=== PATIENT | male | born 1940 | race Caucasian/White ===

== ENCOUNTER → 2017-03-18 | Outpatient (CLI) | payer OTHER ==
[~2017-03-18] MED LIST: ACT15 PO; CZR50 PO; DOCU100C PO; FRRS300 PO; GABA-112 PO; GLIM4TAB PO; SIMV40TA2 PO; SITA50TA5 PO; SULF800T23 PO
[2017-03-18 12:56] LABS: HEMATOCRIT 35.7 % (42-52); MEAN CELL VOLUME 90.8 fL (80-100); MEAN CORPUSCULAR HEMOGLOBIN 29.3 pg (25-34); MEAN CORPUSCULAR HGB CONC 32.2 g/dl (32-36); MEAN PLATELET VOLUME 10.3 fL (7.4-10.4); PLATELET COUNT 203 K/uL (130-400); RED BLOOD COUNT 3.93 M/uL (4.7-6.1); WHITE BLOOD COUNT 7.03 K/uL (4.8-10.8)
[2017-03-18 13:19] LABS: ESTIMATED AVERAGE GLUCOSE 197 mg/dl; HA1C FLAG Normal (Normal)
== END | disposition home or self-care (01) ==
LOC: C.LABPVFM 08:21
DX: R73.01 Impaired fasting glucose (principal)

== ENCOUNTER → 2017-08-17 | Outpatient (CLI) | payer OTHER ==
[2017-08-17 12:34] LABS: HEMATOCRIT 35.8 % (42-52); HEMOGLOBIN 11.2 g/dL (14.0-18.0); MEAN CELL VOLUME 88.2 fL (80-100); MEAN CORPUSCULAR HEMOGLOBIN 27.6 pg (25-34); MEAN CORPUSCULAR HGB CONC 31.3 g/dl (32-36); MEAN PLATELET VOLUME 10.2 fL (7.4-10.4); PLATELET COUNT 242 K/uL (130-400); RED CELL DISTRIBUTION WIDTH CV 15.2 % (11.5-14.5); RED CELL DISTRIBUTION WIDTH SD 49.1 fL (36.4-46.3); WHITE BLOOD COUNT 8.67 K/uL (4.8-10.8)
[2017-08-17 12:44] LABS: HEMOGLOBIN A1C 7.5 % (4.5-5.6)
[2017-08-17 13:13] LABS: ALBUMIN 3.7 gm/dl (3.4-5.0); ALT/SGPT 34 U/L (12-78); BLOOD UREA NITROGEN 22 mg/dl (7-18); CARBON DIOXIDE 27 mmol/L (21-32); CREATININE 1.05 mg/dl (0.60-1.40); GLUCOSE 106 mg/dl (70-99); POTASSIUM 4.4 mmol/L (3.5-5.1); SODIUM 138 mmol/L (136-145)
[2017-08-17 13:16] LABS: ALKALINE PHOSPHATASE 69 U/L (45-117); AST/SGOT 23 U/L (15-37); TOTAL PROTEIN 7.6 gm/dl (6.4-8.2)
== END | disposition home or self-care (01) ==
LOC: C.LABPVFM 08:58
PROVIDERS: ATTEND Physician Assistant
DX: E11.65 Type 2 diabetes mellitus with hyperglycemia (principal)

== ENCOUNTER → 2017-12-06 | Outpatient (CLI) | payer OTHER ==
[2017-12-06 12:42] LABS: HEMATOCRIT 36.3 % (42-52); HEMOGLOBIN 11.2 g/dL (14.0-18.0); MEAN CELL VOLUME 86.4 fL (80-100); MEAN CORPUSCULAR HEMOGLOBIN 26.7 pg (25-34); MEAN CORPUSCULAR HGB CONC 30.9 g/dl (32-36); MEAN PLATELET VOLUME 10.3 fL (7.4-10.4); PLATELET COUNT 245 K/uL (130-400); RED CELL DISTRIBUTION WIDTH CV 15.8 % (11.5-14.5); RED CELL DISTRIBUTION WIDTH SD 50.1 fL (36.4-46.3); WHITE BLOOD COUNT 7.71 K/uL (4.8-10.8)
[2017-12-06 13:00] LABS: HEMOGLOBIN A1C 8.2 % (4.5-5.6)
[2017-12-06 13:03] LABS: ALBUMIN 3.4 gm/dl (3.4-5.0); ALT/SGPT 39 U/L (12-78); AST/SGOT 38 U/L (15-37); BLOOD UREA NITROGEN 15 mg/dl (7-18); CALCIUM 8.7 mg/dl (8.5-10.1); CARBON DIOXIDE 27 mmol/L (21-32); GLUCOSE 136 mg/dl (70-99); POTASSIUM 4.5 mmol/L (3.5-5.1); SODIUM 138 mmol/L (136-145)
[2017-12-06 13:05] LABS: ALKALINE PHOSPHATASE 72 U/L (45-117); CHOLESTEROL 123 mg/dl (0-200); LDL CHOLESTEROL CALCULATED 48 mg/dl; TOTAL PROTEIN 7.8 gm/dl (6.4-8.2)
== END | disposition home or self-care (01) ==
LOC: C.LABPVFM 08:21
PROVIDERS: ATTEND Physician Assistant
DX: E11.65 Type 2 diabetes mellitus with hyperglycemia (principal); E78.2 Mixed hyperlipidemia; D64.9 Anemia, unspecified; I10 Essential (primary) hypertension

== ENCOUNTER → 2018-03-18 | Outpatient (CLI) | payer OTHER ==
[~2018-03-18] MED LIST changes: +ACET-24 PO; +ASPI-461 PO; -CZR50 PO; -DOCU100C PO; +FRRG PO; -FRRS300 PO; -GABA-112 PO; +GABA-113 PO; +GLUC10007 PO; +LOSA1TAB38 PO; +METO25TA4 PO; +MULT-506 PO; +SITA1TAB21 PO; -SITA50TA5 PO; -SULF800T23 PO; +ULT50X PO; +nystatin PO
[2018-03-18 17:31] LABS: BASO % 0.5 %; BASO ABS # 0.05 K/uL (0-0.2); EOS ABS # 0.29 K/uL (0-0.5); HEMATOCRIT 38.1 % (42-52); HEMOGLOBIN 11.7 g/dL (14.0-18.0); IG# 0.02 K/uL (0.00-0.02); LYMPH % 29.4 %; LYMPH ABS # 2.83 K/uL (1.2-3.4); MEAN CELL VOLUME 90.1 fL (80-100); MEAN CORPUSCULAR HEMOGLOBIN 27.7 pg (25-34); MEAN CORPUSCULAR HGB CONC 30.7 g/dl (32-36); MEAN PLATELET VOLUME 10.7 fL (7.4-10.4); MONO % 7.5 %; MONO ABS # 0.72 K/uL (0.11-0.59); NEUT % 59.4 %; PLATELET COUNT 292 K/uL (130-400); RED CELL DISTRIBUTION WIDTH CV 14.7 % (11.5-14.5); RED CELL DISTRIBUTION WIDTH SD 48.4 fL (36.4-46.3); WHITE BLOOD COUNT 9.61 K/uL (4.8-10.8)
[2018-03-18 17:46] LABS: ALBUMIN 3.8 gm/dl (3.4-5.0); ALKALINE PHOSPHATASE 97 U/L (45-117); ALT/SGPT 31 U/L (12-78); AST/SGOT 23 U/L (15-37); BLOOD UREA NITROGEN 19 mg/dl (7-18); CARBON DIOXIDE 24 mmol/L (21-32); CHOLESTEROL 185 mg/dl (0-200); CREATININE 1.22 mg/dl (0.60-1.40); GLUCOSE 98 mg/dl (70-99); LDL CHOLESTEROL CALCULATED 105 mg/dl; POTASSIUM 4.7 mmol/L (3.5-5.1); SODIUM 139 mmol/L (136-145); TOTAL PROTEIN 8.2 gm/dl (6.4-8.2); TRANSFERRIN 314 mg/dl (200-360)
[2018-03-19 06:48] LABS: HEMOGLOBIN A1C 8.4 % (4.5-5.6)
== END | disposition home or self-care (01) ==
LOC: C.LABPVFM 14:33
PROVIDERS: ATTEND Family Medicine
DX: T78.2XXA Anaphylactic shock, unspecified, initial encounter (principal); X58.XXXA Exposure to other specified factors, initial encounter; E11.9 Type 2 diabetes mellitus without complications; I10 Essential (primary) hypertension

== ENCOUNTER 2020-06-24 10:29 | Inpatient (IN) ==
[2020-06-24] MEDS ORDERED: ALBUTEROL 0.083% NEBU SOLN 3 ML VIAL NEB STA (10:51)
[2020-06-24] MEDS ORDERED: DEXAMETHASONE SOD INJ 10 MG/ML VIAL IV ONE (10:51)
--- NOTE | 2020-06-24 10:53 | Emergency Department Note ---
Impression & Plan Hypoxia, Pneumonia, COVID-19 ED Provider Note NAME: MACIEL LEE AGE: 80 SEX: M : 1940 ARRIVES VIA: Ambulance INFORMANT: Patient ED PROVIDER(S): Jono Mcneil DO CHIEF COMPLAINT: Shortness of breath HPI: Patient is a 80-year-old male with a past medical history of COPD and diabetes who presents to the ER for shortness of breath. Symptoms started in the past 24 hours. He does have a cough and congestion. He tested positive for frazier virus around the to 11 June. His has the same symptoms. He has been using his inhalers at home but have not been working. He denies any fevers. He does admit to belly pain in the left lower quadrant. Denies any dysuria urgency or frequency. No swelling. No nausea vomiting. No other exacerbating or remitting factors. ROS: See above HPI for pertinent positives & negatives. A total of 10 systems reviewed and were otherwise negative. PAST MEDICAL HISTORY:See Below PAST SURGICAL HISTORY:See Below FAMILY HISTORY:See Below SOCIAL HISTORY:See Below HOME MEDICATIONS:See Below ALLERGIES:See Below VITALS:See Below PHYSICAL EXAMINATION: GENERAL: Sitting up in bed, alert, ill-appearing, short of breath with conversation EYE EXAM: normal conjunctiva. OROPHARYNX: no exudate, no erythema, lips, buccal mucosa, and tongue normal and mucous membranes are moist NECK: supple, no nuchal rigidity, no adenopathy, non-tender LUNGS: Wheezing bilaterally. Normal chest wall mechanics HEART: no murmurs, S1 normal and S2 normal ABDOMEN: abdomen soft, non-tender, normo-active bowel sounds, no masses, no rebound or guarding. UPPER EXTREMITIES: upper extremities are grossly normal. LOWER EXTREMITIES: No pitting edema. Calves are equal bilateral NEURO EXAM: Normal sensorium, cranial nerves II-XII grossly intact, normal speech, no gross weakness of arms, no gross weakness of legs. MEDICAL DECISION MAKING: Patient is a 80-year-old male who presents the ER for shortness of breath. Upon presentation he was extremely dyspneic with conversation breathing about 35 time s a minute. Pulse ox was in the mid 80s. He was placed on oxygen and eventually placed on BiPAP. He improved significantly. He was given an hour- long neb treatment. Labs show a mild leukocytosis of 11,000. Not anemia at 9 down from baseline of 11. INR 1.3. Dimer was elevated at 6100. BMP with creatinine 1.4. LFTs bilirubin was unremarkable. Troponin was negative. Lipase unremarkable. Patient was Covid positive. Patient continued on BiPAP. Was given azithromycin, Rocephin and IV Decadron. Was given IV fluids. Chest x-ray with multifocal pneumonia. Updated and discussed with hospitalist for further evaluation. Triage Nursing notes reviewed. Prior medical records reviewed Vital Signs: reviewed and remarkable for tachycardic, dyspneic, hypoxic Differential diagnosis: Differential diagnoses includes but is not limited to pneumonia, bronchitis, COPD/Asthma exacerbation, pneumothorax, pulmonary embolism, congestive heart f ailure, acute coronary syndrome ER treatment provided: See below Diagnostics interpreted by me: ECG: Sinus tachycardia rate of 105 Left axis No PVCs QTC 459 Cardiac Monitoring: An order was placed for continuous cardiac monitoring. The monitor shows a rate of 89 with sinus rhythm. Laboratory studies: As stated above and show below. Imaging studies: Portable AP upright 1 view shows multifocal pneumonia Consultation(s): Discussed the hospitalist for further evaluation ED COURSE: Procedures: none Critical Care: I have personally spent 35 minutes of critical care time in the direct management of this patient. This includes bedside care, interpretation of diagnostic studies, and testing, discussion with consultants, patient, and [facility], and other required patient management activities. This 35 minutes is in excess of all separately billable procedures. Past Med/Surg History Medical History (Updated 06/24/20 @ 16:08 by Jono Mcneil DO) Acquired trigger finger of both ring fingers Carpal tunnel syndrome Cerumen impaction Chronic obstructive pulmonary disease WELL CONTROLLED> RARE INH USE CKD stage 3 secondary to diabetes DOESNT FOLLOW KIDNEY DR Diabetes type 2, controlled Exertional dyspnea Osteoarthritis Paroxysmal atrial fibrillation NO CARDIOVERSION> CONTROLLED WITH MEDS Seborrheic keratoses Sleep apnea ON ABOVE LIST BUT PT DOES NOT HAVE Surgical History (Updated 06/24/20 @ 15:28 by Guru Holland) H/O foot surgery congenital deformity History of appendectomy History of cataract surgery both eyes History of colonoscopy History of esophagogastroduodenoscopy (EGD) History of hip replacement History of mandibular surgery REMOVED BENIGN TUMOR YRS AGO History of total knee replacement LEFT History of wisdom tooth extraction Previous back surgery X2 LUMBAR> Family History Father Cancer brain and lung Other Family history non-contributory Denies family history of Ovarian cancer Prostate cancer Myocardial infarction Breast cancer Colorectal cancer Social History Smoking Status: Former smoker Tobacco Type: Cigarettes packs per day: 4; Smoking End Date: 1989; Number of Years Since Quit: 30; Second Hand Exposure: No; Hx Alcohol Use: No Hx Substance Use: No Preferred Language: Kazakh Communication Ability: Effective Airfield Operations Specialist Required: No Beliefs That Will Affect Care: None marital status: Current Living Situation: Spouse current occupational status: retired 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 Feels Safe at Home: Yes caffeine: Yes (welsh tea) Dental Care, Regularly: No Seatbelt Use: sometimes Sunscreen Use: No Assistive Devices: Denture - Upper, Denture - Lower and Glasses Allergies Allergies Allergy/AdvReac Type Severity Reaction Status Date / Time cheese Allergy Severe Hives Verified 06/10/20 17:06 Home Meds Home Medications Medication Instructions Recorded Confirmed epinephrine 0.3 mg/0.3 mL 0.3 mg SUBCUT .INJECT 0.3ML 12/25/18 06/10/20 injection, auto-injector INTRAMU #1 ea ferrous gluconate 324 mg (38 mg 324 mg PO Q OTHER DAY tab 06/30/19 06/10/20 iron) tablet insulin aspart U-100 [Novolog 25 unit SUBCUT TID 01/03/20 06/10/20 Flexpen U-100 Insulin] cholecalciferol (vitamin D3) 25 1,000 units PO DAILY cap 02/16/20 06/10/20 mcg (1,000 unit) capsule Previous Rx's Medication Instructions Recorded lancets 33 gauge #100 ea 12/29/18 pen needle, diabetic 32 gauge x #200 ea 03/15/19" OneTouch Ultra2 Meter #1 ea NS 09/15/19 apixaban 5 mg tablet 5 mg PO BID #60 tab 01/17/20 simvastatin 40 mg tablet See Rx Instructions .ROUTE 02/06/20 .COMPLEX #90 tablet insulin glargine 100 unit/mL (3 See Rx Instructions SQ QAM 90 Days 03/12/20 mL) subcutaneous pen #45 ml metoprolol succinate 50 mg 50 mg PO BID #180 tab 04/12/20 tablet,extended release 24 hr blood sugar diagnostic #400 ea 04/17/20 losartan 100 mg tablet 100 mg PO QAM #30 tab 05/07/20 metformin 1,000 mg tablet 1,000 mg PO BID #60 tab 05/07/20 gabapentin 100 mg capsule See Rx Instructions .ROUTE 06/14/20 .COMPLEX #30 cap budesonide-formoterol HFA 160 2 puff INH BID #10.2 gm 06/17/20 mcg-4.5 mcg/actuation aerosol inhaler ipratropium 0.5 mg-albuterol 3 mg 3 ml INHALATION Q4H PRN #540 ml 06/17/20 (2.5 mg base)/3 mL nebulization soln albuterol sulfate 90 mcg/actuation 2 puff INHALATION Q4H PRN #8.5 g 06/18/20 aerosol inhaler nebulizers #1 ea 06/18/20 Results & Data (ED) Vital Signs Vital Signs - 24 hr 06/24/20 10:35 06/24/20 10:40 06/24/20 10:42 Temperature 37.7 C H Temperature Source Oral Pulse Rate 103 H 107 H 102 H Pulse Rate from SpO2 Sensor 102 H 101 H Respiratory Rate 32 H 30 H 28 H Respiratory Effort / Characteristics Respiratory Depth Respiratory Pattern Blood Pressure 157/93 H 157/93 H Blood Pressure Mean 107 114 Pulse Oximetry 95 97 96 Oxygen Delivery Method Nasal Cannula BiPAP Oxygen Flow Rate 4 Fraction of Inspired Oxygen Sepsis Recent Fever Within 48 Hours Yes Sepsis New/Unexplained Change in Mental Status Yes Sepsis Action Taken by Nursing Physician Notified 06/24/20 10:50 06/24/20 11:00 06/24/20 11:01 Temperature Temperature Source Pulse Rate 99 H 100 H 100 H Pulse Rate from SpO2 Sensor 99 H 94 H 100 H Respiratory Rate 23 28 H 29 H Respiratory Effort / Characteristics Respiratory Depth Respiratory Pattern Blood Pressure 157/78 H Blood Pressure Mean 118 Pulse Oximetry 95 95 96 Oxygen Delivery Method BiPAP BiPAP BiPAP Oxygen Flow Rate Fraction of Inspired Oxygen Sepsis Recent Fever Within 48 Hours Sepsis New/Unexplained Change in Mental Status Sepsis Action Taken by Nursing 06/24/20 11:10 06/24/20 11:12 06/24/20 11:20 Temperature Temperature Source Pulse Rate 102 H 104 H 100 H Pulse Rate from SpO2 Sensor 102 H 98 H Respiratory Rate 34 H 23 23 Respiratory Effort / Characteristics Spontaneous Respiratory Depth Normal Respiratory Pattern Regular Blood Pressure Blood Pressure Mean Pulse Oximetry 96 93 96 Oxygen Delivery Method BiPAP Oxygen Flow Rate Fraction of Inspired Oxygen 30 Sepsis Recent Fever Within 48 Hours Sepsis New/Unexplained Change in Mental Status Sepsis Action Taken by Nursing 06/24/20 11:24 06/24/20 11:30 06/24/20 11:31 Temperature Temperature Source Pulse Rate 106 H 102 H Pulse Rate from SpO2 Sensor Respiratory Rate 32 H 29 H Respiratory Effort / Characteristics Respiratory Depth Respiratory Pattern Blood Pressure 137/77 Blood Pressure Mean 95 Pulse Oximetry 95 Oxygen Delivery Method Nasal Cannula Oxygen Flow Rate 4 Fraction of Inspired Oxygen Sepsis Recent Fever Within 48 Hours Sepsis New/Unexplained Change in Mental Status Sepsis Action Taken by Nursing 06/24/20 11:40 06/24/20 11:50 06/24/20 12:09 Temperature Temperature Source Pulse Rate 101 H 100 H 119 H Pulse Rate from SpO2 Sensor 100 H 97 H Respiratory Rate 26 H 22 30 H Respiratory Effort / Characteristics Respiratory Depth Respiratory Pattern Blood Pressure Blood Pressure Mean Pulse Oximetry 96 97 Oxygen Delivery Method BiPAP BiPAP Oxygen Flow Rate Fraction of Inspired Oxygen Sepsis Recent Fever Within 48 Hours Sepsis New/Unexplained Change in Mental Status Sepsis Action Taken by Nursing 06/24/20 12:10 06/24/20 12:17 06/24/20 12:20 Temperature Temperature Source Pulse Rate 126 H 111 H 100 H Pulse Rate from SpO2 Sensor 86 100 H Respiratory Rate 26 H 22 23 Respiratory Effort / Characteristics Respiratory Depth Respiratory Pattern Blood Pressure 167/62 H Blood Pressure Mean 128 Pulse Oximetry 93 95 Oxygen Delivery Method BiPAP BiPAP Oxygen Flow Rate Fraction of Inspired Oxygen Sepsis Recent Fever Within 48 Hours Sepsis New/Unexplained Change in Mental Status Sepsis Action Taken by Nursing 06/24/20 12:30 06/24/20 12:40 06/24/20 12:50 Temperature Temperature Source Pulse Rate 98 H 96 H 93 H Pulse Rate from SpO2 Sensor 96 H 95 H 91 H Respiratory Rate 23 22 20 Respiratory Effort / Characteristics Respiratory Depth Respiratory Pattern Blood Pressure 148/71 H Blood Pressure Mean 103 Pulse Oximetry 94 95 94 Oxygen Delivery Method BiPAP BiPAP BiPAP Oxygen Flow Rate Fraction of Inspired Oxygen Sepsis Recent Fever Within 48 Hours Sepsis New/Unexplained Change in Mental Status Sepsis Action Taken by Nursing 06/24/20 13:00 06/24/20 13:10 06/24/20 13:20 Temperature Temperature Source Pulse Rate 92 H 101 H 99 H Pulse Rate from SpO2 Sensor 91 H 101 H 89 Respiratory Rate 21 19 20 Respiratory Effort / Characteristics Respiratory Depth Respiratory Pattern Blood Pressure 134/75 Blood Pressure Mean 112 Pulse Oximetry 95 93 92 Oxygen Delivery Method Oxygen Flow Rate Fraction of Inspired Oxygen Sepsis Recent Fever Within 48 Hours Sepsis New/Unexplained Change in Mental Status Sepsis Action Taken by Nursing 06/24/20 13:30 06/24/20 13:38 06/24/20 13:40 Temperature Temperature Source Pulse Rate 115 H 103 H 99 H Pulse Rate from SpO2 Sensor 99 H 97 H Respiratory Rate 20 27 H 23 Respiratory Effort / Characteristics Respiratory Depth Respiratory Pattern Blood Pressure 153/74 H Blood Pressure Mean 102 Pulse Oximetry 89 L 89 L Oxygen Delivery Method Room Air Room Air Oxygen Flow Rate Fraction of Inspired Oxygen Sepsis Recent Fever Within 48 Hours Sepsis New/Unexplained Change in Mental Status Sepsis Action Taken by Nursing 06/24/20 13:45 06/24/20 13:50 06/24/20 14:00 Temperature Temperature Source Pulse Rate 98 H 100 H 93 H Pulse Rate from SpO2 Sensor 100 H 91 H Respiratory Rate 28 H 26 H 24 Respiratory Effort / Characteristics Spontaneous Respiratory Depth Normal Respiratory Pattern Regular Blood Pressure 150/78 H Blood Pressure Mean 106 Pulse Oximetry 88 L 97 94 Oxygen Delivery Method BiPAP BiPAP Oxygen Flow Rate Fraction of Inspired Oxygen 30 Sepsis Recent Fever Within 48 Hours Sepsis New/Unexplained Change in Mental Status Sepsis Action Taken by Nursing 06/24/20 14:01 06/24/20 14:10 06/24/20 14:20 Temperature Temperature Source Pulse Rate 93 H 94 H 91 H Pulse Rate from SpO2 Sensor 93 H 94 H 91 H Respiratory Rate 22 20 20 Respiratory Effort / Characteristics Respiratory Depth Respiratory Pattern Blood Pressure Blood Pressure Mean Pulse Oximetry 94 96 94 Oxygen Delivery Method BiPAP BiPAP BiPAP Oxygen Flow Rate Fraction of Inspired Oxygen Sepsis Recent Fever Within 48 Hours Sepsis New/Unexplained Change in Mental Status Sepsis Action Taken by Nursing 06/24/20 14:30 Temperature Temperature Source Pulse Rate 89 Pulse Rate from SpO2 Sensor 80 Respiratory Rate 18 Respiratory Effort / Characteristics Respiratory Depth Respiratory Pattern Blood Pressure Blood Pressure Mean Pulse Oximetry 98 Oxygen Delivery Method BiPAP Oxygen Flow Rate Fraction of Inspired Oxygen Sepsis Recent Fever Within 48 Hours Sepsis New/Unexplained Change in Mental Status Sepsis Action Taken by Nursing Laboratory Data Result diagrams: 06/24/20 10:50 06/24/20 10:50 Lab Results 06/24/20 06/24/20 06/24/20 Range/Units 10:50 10:50 10:50 WBC 11.79 H (4.8-10.8) K/uL RBC 3.40 L (4.7-6.1) M/uL Hgb 9.2 L (14.0-18.0) g/dL Hct 29.2 L (42-52) % MCV 85.9 (80-100) fL MCH 27.1 (25-34) pg MCHC 31.5 L (32-36) g/dL RDW Std Deviation 49.5 H (36.4-46.3) fL RDW Coeff of Pierce 15.7 H (11.5-14.5) % Plt Count 354 (130-400) K/uL MPV 11.3 H (7.4-10.4) fL Immature Gran % (Auto) 0.3 % Neut % (Auto) 77.4 % Lymph % (Auto) 10.4 % Kenton % (Auto) 11.2 % Eos % (Auto) 0.4 % Baso % (Auto) 0.3 % Neut # (Auto) 9.13 H (1.4-6.5) K/uL Lymph # (Auto) 1.23 (1.2-3.4) K/uL Kenton # (Auto) 1.32 H (0.11-0.59) K/uL Eos # (Auto) 0.05 (0-0.5) K/uL Baso # (Auto) 0.03 (0-0.2) K/uL Immature Gran # (Auto) 0.03 H (0.00-0.02) K/uL Absolute Nucleated RBC 0.16 H (0-0) K/uL Nucleated RBC % (auto) 1.4 % PT 13.7 H (9.0-12.0) Seconds INR 1.3 H (0.9-1.1) APTT 31.1 H (21.0-31.0) Seconds PTT Ratio 1.1 D-Dimer 6140 H* (0-500) ug/L FEU Sodium 136 (136-145) mmol/L Potassium 4.6 (3.5-5.1) mmol/L Chloride 104 (98-107) mmol/L Carbon Dioxide 24 (21-32) mmol/L Anion Gap 8.0 (3-11) BUN 23 H (7-18) mg/dl Creatinine 1.45 H (0.6-1.4) mg/dl Est Cr Clr Drug Dosing 54.1 ml/min Est GFR ( Amer) 53.1 Est GFR (Non-Af Amer) 45.8 BUN/Creatinine Ratio 15.9 (10-20) Glucose 146 H (70-99) mg/dl Calcium 9.0 (8.5-10.1) mg/dl Total Bilirubin 0.6 (0.2-1) mg/dl AST 53 H (15-37) U/L ALT 34 (12-78) U/L Alkaline Phosphatase 96 (45-117) U/L Troponin I < 0.015 (0-0.045) ng/ml Total Protein 8.1 (6.4-8.2) gm/dl Albumin 2.4 L (3.4-5.0) gm/dl Globulin 5.7 H (2.5-4.0) gm/dl Albumin/Globulin Ratio 0.4 L (0.9-2) Lipase 186 (73-393) U/L COVID-19 Eval Order SARS-CoV-2, RNA, NAAT (NEGATIVE) 06/24/20 06/24/20 Range/Units 11:19 11:19 WBC (4.8-10.8) K/uL RBC (4.7-6.1) M/uL Hgb (14.0-18.0) g/dL Hct (42-52) % MCV (80-100) fL MCH (25-34) pg MCHC (32-36) g/dL RDW Std Deviation (36.4-46.3) fL RDW Coeff of Pierce (11.5-14.5) % Plt Count (130-400) K/uL MPV (7.4-10.4) fL Immature Gran % (Auto) % Neut % (Auto) % Lymph % (Auto) % Kenton % (Auto) % Eos % (Auto) % Baso % (Auto) % Neut # (Auto) (1.4-6.5) K/uL Lymph # (Auto) (1.2-3.4) K/uL Kenton # (Auto) (0.11-0.59) K/uL Eos # (Auto) (0-0.5) K/uL Baso # (Auto) (0-0.2) K/uL Immature Gran # (Auto) (0.00-0.02) K/uL Absolute Nucleated RBC (0-0) K/uL Nucleated RBC % (auto) % PT (9.0-12.0) Seconds INR (0.9-1.1) APTT (21.0-31.0) Seconds PTT Ratio D-Dimer (0-500) ug/L FEU Sodium (136-145) mmol/L Potassium (3.5-5.1) mmol/L Chloride (98-107) mmol/L Carbon Dioxide (21-32) mmol/L Anion Gap (3-11) BUN (7-18) mg/dl Creatinine (0.6-1.4) mg/dl Est Cr Clr Drug Dosing ml/min Est GFR ( Amer) Est GFR (Non-Af Amer) BUN/Creatinine Ratio (10-20) Glucose (70-99) mg/dl Calcium (8.5-10.1) mg/dl Total Bilirubin (0.2-1) mg/dl AST (15-37) U/L ALT (12-78) U/L Alkaline Phosphatase (45-117) U/L Troponin I (0-0.045) ng/ml Total Protein (6.4-8.2) gm/dl Albumin (3.4-5.0) gm/dl Globulin (2.5-4.0) gm/dl Albumin/Globulin Ratio (0.9-2) Lipase (73-393) U/L COVID-19 Eval Order Covid19 [facility] SARS-CoV-2, RNA, NAAT POSITIVE A* (NEGATIVE) Administered Medications Discontinued Medications Albuterol (Albuterol 0.083% Nebu Soln 3 Ml Vial) 10 mg NEB NOW STA Stop: 06/24/20 10:52 Last Admin: 06/24/20 11:17 Dose: 10 mg Documented by: [id number] Dexamethasone (Dexamethasone Sod Inj 10 Mg/Ml Vial) 6 mg IV NOW ONE Stop: 06/24/20 10:52 Last Admin: 06/24/20 11:18 Dose: 6 mg Documented by: [id number] Ioversol (Optiray 320 125ml) 120 ml IV ONCE ONE Stop: 06/24/20 11:57 Last Admin: 06/24/20 11:57 Dose: 120 ml Documented by: [id number] Discharge Plan Visit Data Chief Complaint: Shortness of Breath/Dyspnea ED Provider: Jono Mcneil Discharge Problem: Hypoxia, Pneumonia, COVID-19 Forms Stand Alone Forms: [facility] [place] Prescriptions Prescriptions: No Action (DME) blood-glucose meter [[employer] Ultra2 Meter] Mis See Rx Instructions .ROUTE .MEDSUPPLY Qty: 1 RF: 0 Eliquis 5 mg tablet 5 mg PO BID Qty: 60 RF: 5 metoprolol succinate 50 mg tablet extended release 24 hr 50 mg PO BID Qty: 180 RF: 0 (DME) Deep Imaging TechnologiesTouch Ultra Blue Test Strip Strip See Dose Instructions .ROUTE .MEDSUPPLY Qty: 400 RF: 1 losartan 100 mg tablet 100 mg PO QAM Qty: 30 RF: 4 metformin 1,000 mg tablet 1,000 mg PO BID Qty: 60 RF: 5 cholecalciferol (vitamin D3) 25 mcg (1,000 unit) capsule 1,000 units PO DAILY RF: 0 epinephrine 0.3 mg/0.3 mL auto-injector 0.3 mg subcut .INJECT 0.3ML INTRAMU Qty: 1 RF: 0 (DME) lancets [[employer] Delica Lancets] [facility] See Dose Instructions .ROUTE .MEDSUPPLY Qty: 100 RF: 3 ferrous gluconate 324 mg (38 mg iron) tablet 324 mg PO Q OTHER DAY RF: 0 (DME) pen needle, diabetic [BD Ultra-Fine Lavinia Pen Needle] 32 gauge x 5/32" needle See Dose Instructions .ROUTE .MEDSUPPLY Qty: 200 RF: 5 Symbicort 160-4.5 mcg/actuation HFA aerosol inhaler 2 puff INH BID Qty: 10.2 RF: 0 ipratropium-albuterol 0.5 mg-3 mg(2.5 mg base)/3 mL solution for nebulization 3 ml inhalation Q4H PRN (Reason: COPD) Qty: 540 RF: 5 (DME) nebulizers [facility] See Rx Instructions .ROUTE .MEDSUPPLY Qty: 1 RF: 0 albuterol sulfate 90 mcg/actuation HFA aerosol inhaler 2 puff inhalation Q4H PRN (Reason: shortness of breath or wheezing) Qty: 8.5 RF: 5 insulin aspart U-100 [Novolog Flexpen U-100 Insulin] 100 unit/mL (3 mL) insulin pen 25 unit SUBCUT TID RF: 0 travoprost 0.004 % drops 1 drp OPL HS RF: 0 simvastatin 40 mg tablet 40 mg PO HS RF: 0 gabapentin 100 mg capsule 100 mg PO BID RF: 0 Basaglar KwikPen U-100 Insulin 100 unit/mL (3 mL) insulin pen 40 unit SQ QAM RF: 0 Discharge Problem: Pneumonia Qualifiers: Pneumonia type: due to unspecified organism Laterality: unspecified laterality Lung location: unspecified part of lung Qualified Code(s): J18.9 - Pneumonia, unspecified organism
[2020-06-24 11:04] LABS: Basophils # (auto) 0.03 K/uL (0-0.2); Basophils % (auto) 0.3 %; Eosinophils # (auto) 0.05 K/uL (0-0.5); Eosinophils % (auto) 0.4 %; Hematocrit (blood only) 29.2 % (42-52); Hemoglobin 9.2 g/dL (14.0-18.0); Immature Granulocytes # (auto) 0.03 K/uL (0.00-0.02); Immature Granulocytes % (auto) 0.3 %; Lymphocytes # (auto) 1.23 K/uL (1.2-3.4); Lymphocytes % (auto) 10.4 %; Mean Corpuscular Hemoglobin 27.1 pg (25-34); Mean Corpuscular Hgb Conc 31.5 g/dL (32-36); Mean Corpuscular Volume 85.9 fL (80-100); Mean Platelet Volume 11.3 fL (7.4-10.4); Monocytes # (auto) 1.32 K/uL (0.11-0.59); Monocytes % (auto) 11.2 %; Neutrophils # (auto) 9.13 K/uL (1.4-6.5); Neutrophils % (auto) 77.4 %; Nucleated RBC # (auto) 0.16 K/uL (0-0); Nucleated RBC % (auto) 1.4 %; Platelet Count 354 K/uL (130-400); RDW Coefficient of Variation 15.7 % (11.5-14.5); RDW Standard Deviation 49.5 fL (36.4-46.3); White Blood Count 11.79 K/uL (4.8-10.8)
--- NOTE | 2020-06-24 11:11 | XRay Report ---
SINGLE VIEW CHEST CLINICAL HISTORY: Atypical chest pain. FINDINGS: An AP, portable, upright chest radiograph is compared to study dated 07/17/2018 and correla cody with chest CT dated 10/07/2018. The examination is degraded by portable technique and apical lordo tic positioning. The heart is enlarged noting atherosclerotic calcification of the thoracic aorta. Th ere is prominence of the pulmonary vasculature. There is multifocal airspace consolidation seen throu ghout both lungs. No large pleural effusion or pneumothorax is seen. The skeletal structures are oste openic. The bony thorax is grossly intact. IMPRESSION: 1. Multifocal airspace consolidation is consistent with an infectious/inflammatory pneumonitis. Clini sanford correlation will be required and radiographic follow-up to resolution is recommended. 2. Cardiomegaly with prominence of the pulmonary vasculature. Correlate clinically for mild congestiv e failure. ACT 112: Negative or not required by law. Electronically signed by: Kaushal Mercado M.D. 06/24/2020 11:10 AM
[2020-06-24 11:22] LABS: Alanine Aminotransferase 34 U/L (12-78); Albumin Level 2.4 gm/dl (3.4-5.0); Aspartate Aminotransferase 53 U/L (15-37); BUN Creatinine Ratio 15.9 (10-20); Blood Urea Nitrogen 23 mg/dl (7-18); Carbon Dioxide 24 mmol/L (21-32); Chloride 104 mmol/L (98-107); Creatinine Clr Calc Pharmacy 54.1 ml/min; Est GFR (African American) 53.1; Est GFR (Non-African American) 45.8; Glucose 146 mg/dl (70-99); INR 1.3 (0.9-1.1); Lipase 186 U/L (73-393); Partial Thromboplastin Ratio 1.1; Partial Thromboplastin Time 31.1 Seconds (21.0-31.0); Potassium 4.6 mmol/L (3.5-5.1); Prothrombin Time 13.7 Seconds (9.0-12.0); Sodium 136 mmol/L (136-145)
[2020-06-24 11:23] LABS: D Dimer 6140 ug/L FEU (0-500)
[2020-06-24 11:27] LABS: Albumin Globulin Ratio 0.4 (0.9-2); Alkaline Phosphatase 96 U/L (45-117); Bilirubin,Total 0.6 mg/dl (0.2-1); Globulin 5.7 gm/dl (2.5-4.0); Total Protein 8.1 gm/dl (6.4-8.2); Troponin I < 0.015 ng/ml (0-0.045)
[2020-06-24] MEDS ORDERED: OPTIRAY 320 125ml IV ONE (11:56)
--- NOTE | 2020-06-24 12:15 | CT Scan Report ---
CT ANGIOGRAM OF THE CHEST CLINICAL HISTORY: Hypoxia, positive d-dimer. Covid 19 positive patient. COMPARISON STUDY: Chest x-ray dated 06/24/2020, chest CT dated 10/07/2018 TECHNIQUE: Following the IV administration of 120 mL of Optiray-320, CT angiogram of the thorax was p erformed from the thoracic inlet to the lung bases utilizing the pulmonary embolus protocol. Images a re reviewed in the axial, sagittal, and coronal planes. IV contrast was administered without complica tion. MIP imaging was performed. A dose lowering technique was utilized adhering to the principles o f ALARA. CT DOSE: 1694.61 mGycm FINDINGS: Mediastinal and hilar lymph nodes are the upper limits of normal in size. There is no pathologic axil mary lymphadenopathy. There was no evidence of thoracic aortic dilatation. There are no pulmonary artery filling defects to indicate acute pulmonary embolism. Evaluation is mod erately limited due to significant motion artifact. There are no pleural effusions. There are multifocal groundglass pulmonary opacities with a periphera l distribution. The findings are consistent with a multifocal pneumonitis. While nonspecific, the fin dings are suggestive of Covid 19 pneumonia. There is a nodular contour of the visualized portions of the liver. This raises the possibility of un derlying cirrhosis IMPRESSION: 1. No evidence of acute pulmonary embolism given the technical limitations of a motion degraded study 2. Bilateral multifocal groundglass airspace opacities, consistent with a multifocal pneumonia. While nonspecific, the pattern is typical of Covid 19 pneumonia ACT 112: Negative or not required by law. Electronically signed by: Dante Murillo M.D. 06/24/2020 12:13 PM
--- NOTE | 2020-06-24 12:24 | CT Scan Report ---
ABDOMEN AND PELVIS CT WITH IV CONTRAST HISTORY: Acute left lower quadrant abdominal pain. COVID Positive. llq abd pain TECHNIQUE: Multiaxial CT images of the abdomen and pelvis were performed following the IV administrat ion of 120 cc of Optiray 320, A dose lowering technique was utilized adhering to the principles of A WICHO. COMPARISON STUDY: CTA chest of same day, MRI of her spine 02/08/2020. FINDINGS: Mild cardiomegaly. Coronary artery calcifications. Multifocal subpleural groundglass opacit ies are noted throughout the lung bases. No pneumatosis or pneumoperitoneum. Heterogeneous enhancemen t of the spleen. Fatty attenuating focus measuring 3.4 x 2.2 cm is noted within the region of the unc inate process pancreas/second third portion the duodenum junction suggestive of a lipoma. No pancreat ic ductal dilation. Unremarkable adrenal glands and gallbladder. Mild marginal nodularity of the live r suggestive of cirrhosis. No ascites or hepatic mass lesion. Patency of the hepatic and portal veins . Mild nonspecific bilateral perinephric stranding. No obstructive uropathy. Pelvic structures are subo ptimally visualized secondary to streak artifact from left hip total joint arthroplasty. Mild prostam egaly. Unremarkable urinary bladder. Small fat filled left inguinal hernia. Calcified plaque of the a cristina without aneurysm. There is no adenopathy. Distal esophageal varices. Mild distal esophageal wall thickening. Recanalization of the umbilical ve in. The appendix is reportedly surgically absent. No ascites or mesenteric inflammation. Soft tissues are within normal limits. Degenerative changes of the spine, pelvis and hips. Multilevel central can al narrowing of the lumbar spine with prior laminectomy changes. 1.9 cm sclerotic focus of the right iliac bone on image 302 series 6 appears unchanged from comparison MRI lumbar spine study. Lumbar lev oscoliosis. IMPRESSION: 1. Subpleural predominant groundglass opacities of the lung bases are compatible with a nonspecific i nfectious or inflammatory pneumonitis such as viral pneumonia. 2. No bowel obstruction or bowel wall thickening. 3. Cirrhotic liver disease without ascites. 4. No bowel obstruction or bowel wall thickening. 5. Additional findings as above. ACT 112: Negative or not required by law. The above report was generated using voice recognition software. It may contain grammatical, syntax o r spelling errors. Electronically signed by: Jose Varma M.D. 06/24/2020 12:23 PM
--- NOTE | 2020-06-24 13:54 | History & Physical Report ---
Date of Service June 24, 2020 Assessment & Plan (1) Acute respiratory failure with hypoxia: 2nd to COVID-19 pneumonia, COPD exacerbation, and potentially a superimposed bacterial process of the lungs given his elevated procalcitonin level. Was on BIPAP in ER. VBG checked - CO2 and pH acceptable. BIPAP stopped; transitioned to NC O2. Cont IV steroids, antibiotics, supportive care, etc. (2) Pneumonia due to COVID-19 virus: Initial diagnosis on 06/11/20. CTA with extensive b/l infiltrates. Procalcitonin elevated. Dimer elevated. No PEs fortunately. Although he is 10+ days since symptom onset he is doing worse overall especially from respiratory standpoint. Thus, there may be some utility of convalescent plasma. Risks/benefits discussed, FDA plasma handout given, and consent obtained. Type/screen, and transfuse plasma when available. Likely very limited utility from remdesivir at this point in time; thus defer. Place on IV decadron 6mg daily. Increase to BID dosing if wheezing/symptoms worsen from COPD. Given elevated procalcitonin and clear worsening of pulmonary symptoms he could have superimposed bacterial pneumonia. Thus it is reasonable to continue CAP treatment including rocephin with doxycycline. (3) COPD exacerbation: 2nd to COVID-19 infection. IV decadron. Bronchodilators q4h scheduled. Flutter valve/incentive spirometry. Mucinex 1200mg BID. Continue usual home inhalers. Nebs prn. Repeat dimer in am. (4) Diabetes mellitus type 2, uncontrolled: Copious amounts of basal-bolus insulin at home. BSGs to likely rise further with use of steroids and in setting of illness. Cont lantus 50 units daily. Novolog correction factor of 10; carb ratio 1:4. Adjust as necessary. a1c December 2019 was 6.6%. (5) CKD stage 3 secondary to diabetes: baseline Cr about 1.2 today 1.4 gentle fluids overnight and repeat BMP am (6) JAGDEEP (obstructive sleep apnea): is not treated with CPAP/BIPAP or O2 at home (7) Paroxysmal atrial fibrillation: noted. remains in NSR at presentation. place on telemetry. cont metoprolol succinate 50mg BID. cont apixaban BID. (8) Hypertension: continue home meds (9) Dyslipidemia: can hold statin for now as AST mildly elevated CPK noted to be normal trend his LFTs (10) Anemia: presenting Hb today in the 9s last Hb in [facility] was 12 in December 2018 check iron studies as MCV is low 80s uncertain how accurate ferritin will be in setting of COVID infection takes Fe at home trend the CBC (11) DVT prophylaxis: eliquis 5mg BID extensively updated by phone this evening History of Present Illness Chief Complaint: worsening dyspnea Primary Care Provider: Lin Abraham MD 80yo male with COPD, prior heavy tobacco use (quit 1989), T2DM, PAF on eliquis, and HTN who presents with COVID-19 symptoms since ~06/11. On this date he was diagnosed with COVID-19. also sick with COVID-19. During this 10-14 day time span he has had worsening cough, congestion, loss of taste/smell, chest tightness, fevers/chills, and very poor appetite. He has been using his albuterol frequently without relief of chest symptoms. Came to ER today because of worsening dyspnea. He also mentions worsening blood sugars - was 287 this am at home. Upon ER presentation today the patient was hypoxic in the low-mid 80s, tachypneic, and had respiratory distress. Thus, he was placed on BIPAP. During my admission assessment he was resting comfortably on the BIPAP, able to speak in full sentences, and was asking to eat. He stated "I haven't eaten in 4 days.". Allergies Allergy/AdvReac Type Severity Reaction Status Date / Time cheese Allergy Severe Hives Verified 06/10/20 17:06 Home Medications Medication Instructions Recorded Confirmed Type epinephrine 0.3 mg/0.3 mL 0.3 mg SUBCUT .INJECT 0.3ML 12/25/18 06/24/20 History injection, auto-injector INTRAMU #1 ea lancets 33 gauge #100 ea 12/29/18 06/10/20 Rx pen needle, diabetic 32 gauge x #200 ea 03/15/19 06/10/20 Rx 5/32" ferrous gluconate 324 mg (38 mg 324 mg PO Q OTHER DAY tab 06/30/19 06/24/20 History iron) tablet OneTouch Ultra2 Meter #1 ea NS 09/15/19 06/10/20 Rx insulin aspart U-100 [Novolog 25 unit SUBCUT TID 01/03/20 06/24/20 History Flexpen U-100 Insulin] apixaban 5 mg tablet 5 mg PO BID #60 tab 01/17/20 06/24/20 Rx cholecalciferol (vitamin D3) 25 1,000 units PO DAILY cap 02/16/20 06/24/20 History mcg (1,000 unit) capsule metoprolol succinate 50 mg 50 mg PO BID #180 tab 04/12/20 06/24/20 Rx tablet,extended release 24 hr blood sugar diagnostic #400 ea 04/17/20 06/10/20 Rx losartan 100 mg tablet 100 mg PO QAM #30 tab 05/07/20 06/24/20 Rx metformin 1,000 mg tablet 1,000 mg PO BID #60 tab 05/07/20 06/24/20 Rx budesonide-formoterol HFA 160 2 puff INH BID #10.2 gm 06/17/20 06/24/20 Rx mcg-4.5 mcg/actuation aerosol inhaler ipratropium 0.5 mg-albuterol 3 mg 3 ml INHALATION Q4H PRN #540 ml 06/17/20 06/24/20 Rx (2.5 mg base)/3 mL nebulization soln albuterol sulfate 90 mcg/actuation 2 puff INHALATION Q4H PRN #8.5 g 06/18/20 06/24/20 Rx aerosol inhaler nebulizers #1 ea 06/18/20 06/18/20 Rx gabapentin 100 mg PO BID 06/24/20 06/24/20 History insulin glargine [Basaglar KwikPen 40 unit SQ QAM 06/24/20 06/24/20 History U-100 Insulin] simvastatin 40 mg PO HS 06/24/20 06/24/20 History travoprost 1 drp OPL HS 06/24/20 06/24/20 History Past Med/Surg History Medical History (Updated 06/25/20 @ 06:30 by Guru Holland) Acquired trigger finger of both ring fingers Carpal tunnel syndrome Cerumen impaction Chronic obstructive pulmonary disease WELL CONTROLLED> RARE INH USE CKD stage 3 secondary to diabetes DOESNT FOLLOW KIDNEY DR Diabetes type 2, controlled Exertional dyspnea Osteoarthritis Paroxysmal atrial fibrillation NO CARDIOVERSION> CONTROLLED WITH MEDS Seborrheic keratoses Sleep apnea ON ABOVE LIST BUT PT DOES NOT HAVE Surgical History (Updated 06/24/20 @ 15:28 by Guru Holland) H/O foot surgery congenital deformity History of appendectomy History of cataract surgery both eyes History of colonoscopy History of esophagogastroduodenoscopy (EGD) History of hip replacement History of mandibular surgery REMOVED BENIGN TUMOR YRS AGO History of total knee replacement LEFT History of wisdom tooth extraction Previous back surgery X2 LUMBAR> Family History (Updated 06/25/20 @ 06:02 by Guru Holland) Father Cancer brain and lung Mother COPD (chronic obstructive pulmonary disease) Denies family history of Ovarian cancer Prostate cancer Myocardial infarction Breast cancer Colorectal cancer Social History Smoking Status: Former smoker Tobacco Type: Cigarettes packs per day: 4; Number of Years Since Quit: 30; Second Hand Exposure: No; Do You Dip or Chew Tobacco: No; Hx Alcohol Use: No Hx Substance Use: No Preferred Language: Thai Communication Ability: Effective 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 Beliefs That Will Affect Care: None marital status: Current Living Situation: Spouse current occupational status: retired current occupation: worked doing [employer] Other Information That Helps Us Care for You: 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 Feels Safe at Home: Yes caffeine: Yes (khmer tea) Dental Care, Regularly: No Seatbelt Use: sometimes Sunscreen Use: No Assistive Devices: Oxygen - Continuous and Walker Assistive Devices Comment: permanent upper dentures Review of Systems Constitutional: + fever, + body aches, + fatigue, + weakness and + anorexia Eyes: no worsening vision Ear, Nose, Mouth, Throat: + nasal congestion; no sore throat loss of taste and smell Respiratory: + cough, + dyspnea, + dyspnea on exertion and + wheezing; no sputum production Cardiovascular: + chest pain; no edema Gastrointestinal: no abdominal pain, no nausea, no vomiting and no diarrhea/loose stools Genitourinary: no dysuria Musculoskeletal: + body aches; no joint pain Integumentary: no rash Neurologic: + loss of sensation (left hand - chronic) Psychiatric: no depression Endocrine: uncontrolled diabetes Hematologic / Lymphatic: + easy bruising Physical Exam Constitutional: + acute distress (Tachypnea, retractions with moving in bed) and + obese; no altered mental status Eyes: PERRL ENMT: Mouth: + dry oral mucous membranes Neck: trachea midline, no thyromegaly Respiratory: + respiratory distress, + cough and + tachypneic Auscultation: + crackles (Both bases; mild end-exp wheeze especially w/ coughing) Cardiovascular: Rate/Rhythm: regular rate and regular rhythm Heart Sounds: normal S1 and normal S2; no murmur Vessels: posterior tibial pulses present and dorsalis pedis pulses present; no JVD Extremities: no edema heart tones distant Gastrointestinal (Abdomen): Inspection/Auscultation: normal bowel sounds; abdomen not distended Percussion/Palpation: + abdomen tender (Left side of abdomen w/ deep palpation ) and abdomen soft; no hepatosplenomegaly Musculoskeletal: no cyanosis or clubbing, extremities motor strength 5/5 Skin: no rashes, warm and dry Neurologic: moves all extremities; no focal motor deficits Psychiatric: Orientation: alert and oriented x 3 Affect: + anxious affect Lymphatic: no cervical lymphadenopathy Results & Data Results & Data ([facility]) Vital Signs (Past 12 Hours) Vital Signs Temp Pulse Resp BP Pulse Ox 06/24/20 13:45 98 H 28 H 88 L 06/24/20 12:50 93 H 20 94 06/24/20 12:40 96 H 22 95 06/24/20 12:30 98 H 23 148/71 H 94 06/24/20 12:20 100 H 23 95 06/24/20 12:17 111 H 22 167/62 H 93 06/24/20 12:10 126 H 26 H 06/24/20 12:09 119 H 30 H 06/24/20 11:50 100 H 22 97 06/24/20 11:40 101 H 26 H 96 06/24/20 11:31 102 H 29 H 137/77 06/24/20 11:30 106 H 32 H 06/24/20 11:24 95 06/24/20 11:20 100 H 23 96 06/24/20 11:12 104 H 23 93 06/24/20 11:10 102 H 34 H 96 06/24/20 11:01 100 H 29 H 96 06/24/20 11:00 100 H 28 H 157/78 H 95 06/24/20 10:50 99 H 23 95 06/24/20 10:42 102 H 28 H 96 06/24/20 10:40 37.7 C H 107 H 30 H 157/93 H 97 06/24/20 10:35 103 H 32 H 157/93 H 95 Laboratory Results Laboratory Results - last 24 hr 06/24/20 06/24/20 06/24/20 10:50 10:50 10:50 WBC 11.79 H RBC 3.40 L Hgb 9.2 L Hct 29.2 L MCV 85.9 MCH 27.1 MCHC 31.5 L RDW Std Deviation 49.5 H RDW Coeff of Pierce 15.7 H Plt Count 354 MPV 11.3 H Immature Gran % (Auto) 0.3 Neut % (Auto) 77.4 Lymph % (Auto) 10.4 [place] % (Auto) 11.2 Eos % (Auto) 0.4 Baso % (Auto) 0.3 Neut # (Auto) 9.13 H Lymph # (Auto) 1.23 [place] # (Auto) 1.32 H Eos # (Auto) 0.05 Baso # (Auto) 0.03 Immature Gran # (Auto) 0.03 H Absolute Nucleated RBC 0.16 H Nucleated RBC % (auto) 1.4 PT 13.7 H INR 1.3 H APTT 31.1 H PTT Ratio 1.1 D-Dimer 6140 H* VBG pH VBG pCO2 VBG pO2 VBG HCO3 VBG O2 Saturation VBG Base Excess Barometric Pressure Sodium 136 Potassium 4.6 Chloride 104 Carbon Dioxide 24 Anion Gap 8.0 BUN 23 H Creatinine 1.45 H Est Cr Clr Drug Dosing 54.1 Est GFR ( Amer) 53.1 Est GFR (Non-Af Amer) 45.8 BUN/Creatinine Ratio 15.9 Glucose 146 H POC Glucose Calcium 9.0 Total Bilirubin 0.6 AST 53 H ALT 34 Alkaline Phosphatase 96 Total Creatine Kinase Troponin I < 0.015 Total Protein 8.1 Albumin 2.4 L Globulin 5.7 H Albumin/Globulin Ratio 0.4 L Lipase 186 Procalcitonin COVID-19 Eval Order SARS-CoV-2, RNA, NAAT Blood Type Antibody Screen 06/24/20 06/24/20 06/24/20 10:50 10:50 11:19 WBC RBC Hgb Hct MCV MCH MCHC RDW Std Deviation RDW Coeff of Pierce Plt Count MPV Immature Gran % (Auto) Neut % (Auto) Lymph % (Auto) [place] % (Auto) Eos % (Auto) Baso % (Auto) Neut # (Auto) Lymph # (Auto) [place] # (Auto) Eos # (Auto) Baso # (Auto) Immature Gran # (Auto) Absolute Nucleated RBC Nucleated RBC % (auto) PT INR APTT PTT Ratio D-Dimer VBG pH VBG pCO2 VBG pO2 VBG HCO3 VBG O2 Saturation VBG Base Excess Barometric Pressure Sodium Potassium Chloride Carbon Dioxide Anion Gap BUN Creatinine Est Cr Clr Drug Dosing Est GFR ( Amer) Est GFR (Non-Af Amer) BUN/Creatinine Ratio Glucose POC Glucose Calcium Total Bilirubin AST ALT Alkaline Phosphatase Total Creatine Kinase 73 Troponin I Total Protein Albumin Globulin Albumin/Globulin Ratio Lipase Procalcitonin 0.68 H COVID-19 Eval [facility] SARS-CoV-2, RNA, NAAT Blood Type Antibody Screen 06/24/20 06/24/20 06/24/20 11:19 14:54 14:58 WBC RBC Hgb Hct MCV MCH MCHC RDW Std Deviation RDW Coeff of Pierce Plt Count MPV Immature Gran % (Auto) Neut % (Auto) Lymph % (Auto) [place] % (Auto) Eos % (Auto) Baso % (Auto) Neut # (Auto) Lymph # (Auto) [place] # (Auto) Eos # (Auto) Baso # (Auto) Immature Gran # (Auto) Absolute Nucleated RBC Nucleated RBC % (auto) PT INR APTT PTT Ratio D-Dimer VBG pH 7.42 H VBG pCO2 36 L VBG pO2 35 VBG HCO3 22 VBG O2 Saturation 65.3 VBG Base Excess -1.8 Barometric Pressure 717.5 Sodium Potassium Chloride Carbon Dioxide Anion Gap BUN Creatinine Est Cr Clr Drug Dosing Est GFR ( Amer) Est GFR (Non-Af Amer) BUN/Creatinine Ratio Glucose POC Glucose Calcium Total Bilirubin AST ALT Alkaline Phosphatase Total Creatine Kinase Troponin I Total Protein Albumin Globulin Albumin/Globulin Ratio Lipase Procalcitonin COVID-19 Eval Order SARS-CoV-2, RNA, NAAT POSITIVE A* Blood Type A Positive Antibody Screen NEGATIVE 06/24/20 06/24/20 16:23 20:16 WBC RBC Hgb Hct MCV MCH MCHC RDW Std Deviation RDW Coeff of Pierce Plt Count MPV Immature Gran % (Auto) Neut % (Auto) Lymph % (Auto) [place] % (Auto) Eos % (Auto) Baso % (Auto) Neut # (Auto) Lymph # (Auto) [place] # (Auto) Eos # (Auto) Baso # (Auto) Immature Gran # (Auto) Absolute Nucleated RBC Nucleated RBC % (auto) PT INR APTT PTT Ratio D-Dimer VBG pH VBG pCO2 VBG pO2 VBG HCO3 VBG O2 Saturation VBG Base Excess Barometric Pressure Sodium Potassium Chloride Carbon Dioxide Anion Gap BUN Creatinine Est Cr Clr Drug Dosing Est GFR ( Amer) Est GFR (Non-Af Amer) BUN/Creatinine Ratio Glucose POC Glucose 153 H 285 H Calcium Total Bilirubin AST ALT Alkaline Phosphatase Total Creatine Kinase Troponin I Total Protein Albumin Globulin Albumin/Globulin Ratio Lipase Procalcitonin COVID-19 Eval Order SARS-CoV-2, RNA, NAAT Blood Type Antibody Screen Diagnostic Findings 1. CTA chest - IMPRESSION: 1. No evidence of acute pulmonary embolism given the technical limitations of a motion degraded study 2. Bilateral multifocal groundglass airspace opacities, consistent with a multifocal pneumonia. While nonspecific, the pattern is typical of Covid [address] abd/pelvis - IMPRESSION: 1. Subpleural predominant groundglass opacities of the lung bases are compatible with a nonspecific infectious or inflammatory pneumonitis such as viral pneumonia. 2. No bowel obstruction or bowel wall thickening. 3. Cirrhotic liver disease without ascites. 4. No bowel obstruction or bowel wall thickening. 3. EKG - sinus tachycardia, no ST changes Code Status & VTE Plan Code Status full VTE Prophylaxis Plan VTE Prophylaxis will be ordered: Yes PG Care Time/CCT Total # of Minutes Spent Total Time Spent with Patient: Total time spent is greater than 50% in coordination of care (as documented) at patient's floor/unit and/or counseling patient: Coding Level of Care Code 79719 Initial Inpt Care Lvl 3 Diagnoses Acute respiratory failure with hypoxia J96.01 Pneumonia due to COVID-19 virus U07.1; J12.89 COPD exacerbation J44.1 Diabetes mellitus type 2, uncontrolled E11.65 Glycemic state: with hyperglycemia CKD stage 3 secondary to diabetes E11.22; N18.3 JAGDEEP (obstructive sleep apnea) G47.33 Paroxysmal atrial fibrillation I48.0 Hypertension I10 Hypertension type: essential hypertension Dyslipidemia E78.5 Anemia D64.9 DVT prophylaxis Z29.9 (1) Diabetes mellitus type 2, uncontrolled Glycemic state: with hyperglycemia Qualified Code(s): E11.65 - Type 2 diabetes mellitus with hyperglycemia (2) Hypertension Hypertension type: essential hypertension Qualified Code(s): I10 - Essential (primary) hypertension
[2020-06-24 15:18] LABS: Base Excess VBG -1.8 mEq/L; Oxygen Saturation VBG 65.3 %; pH VBG 7.42 (7.36-7.41)
--- NOTE | 2020-06-24 16:29 | Electrocardiogram Report ---
Test Reason : Blood Pressure : / mmHG Vent. Rate : 105 BPM Atrial Rate : 105 BPM P-R Int : 164 ms QRS Dur : 080 ms QT Int : 348 ms P-R-T Axes : 080 -07 021 degrees QTc Int : 459 ms Sinus tachycardia Otherwise normal ECG When compared with ECG of 18-JUL-2018 01:24, No significant change was found Confirmed by Ted Chacko ([id number]) on 06/24/2020 4:29:18 PM Referred By: REFERRED SELF Confirmed By:Jeremy Chacko
[2020-06-24] MEDS ORDERED: ONDANSETRON INJ 2 MG/ML 2 ML VIAL IV PRN (16:35)
[2020-06-24] MEDS ORDERED: ACETAMINOPHEN 325 MG TAB PO PRN (16:35)
[2020-06-24] MEDS ORDERED: SODIUM CHLORIDE 0.9% 1000ML 1,000 ML IV SCH (16:35)
[2020-06-24] MEDS ORDERED: ALBUT/IPRATROP 3MG/0.5MG NEB 3 ML VIAL INH PRN (16:35)
[2020-06-24] MEDS ORDERED: EPINEPHrine INJ 1 MG/ML AMP IM PRN (16:45)
[2020-06-24] MEDS: cefTRIAXone SODIUM 2,000 MG in DEXTROSE 5% 50 ML IV SCH (18:13)
[2020-06-24] MEDS: INSULIN ASPART 100 UNITS/ML 3 ML PEN SC SCH ×2 (18:15→20:29)
[2020-06-24] MEDS: DOXYCYCLINE HYCLATE 100 MG in DEXTROSE 5% 100 ML IV SCH (18:48)
[2020-06-24] MEDS: ALBUTEROL HFA 8 GM INHALER INH SCH ×2 (19:23→23:35)
[2020-06-24] MEDS: guaiFENesin 600 MG TABCR PO SCH (20:26)
[2020-06-24] MEDS: APIXABAN 5 MG TABLET PO SCH (20:26)
[2020-06-24] MEDS: GABAPENTIN 100 MG CAP PO SCH (20:27)
[2020-06-24] MEDS: METOPROLOL SUCC 50MG EXT REL TAB PO SCH (20:27)
[2020-06-25] MEDS: ALBUTEROL HFA 8 GM INHALER INH SCH ×6 (02:07→22:33)
[2020-06-25] MEDS: DOXYCYCLINE HYCLATE 100 MG in DEXTROSE 5% 100 ML IV SCH ×2 (05:43→18:19)
[2020-06-25 06:19] LABS: Hematocrit (blood only) 27.2 % (42-52); Hemoglobin 8.5 g/dL (14.0-18.0); Mean Corpuscular Hemoglobin 27.2 pg (25-34); Mean Corpuscular Hgb Conc 31.3 g/dL (32-36); Mean Corpuscular Volume 86.9 fL (80-100); Mean Platelet Volume 11.2 fL (7.4-10.4); Nucleated RBC # (auto) 0.08 K/uL (0-0); Nucleated RBC % (auto) 0.7 %; Platelet Count 313 K/uL (130-400); RDW Coefficient of Variation 15.8 % (11.5-14.5); RDW Standard Deviation 50.1 fL (36.4-46.3); Red Blood Count 3.13 M/uL (4.7-6.1); White Blood Count 11.11 K/uL (4.8-10.8)
[2020-06-25 06:42] LABS: D Dimer 5030 ug/L FEU (0-500)
[2020-06-25 06:53] LABS: Calcium 8.6 mg/dl (8.5-10.1); Creatinine Clr Calc Pharmacy 62.9 ml/min; Est GFR (African American) 64.1; Est GFR (Non-African American) 55.3; Potassium 4.5 mmol/L (3.5-5.1)
[2020-06-25 06:58] LABS: Ferritin 148.2 ng/ml (8-388)
[2020-06-25] MEDS ORDERED: INSULIN GLARGINE SOLOSTAR 100 UNITS/ML 3 ML PEN SQ SCH (09:00)
[2020-06-25] MEDS: INSULIN ASPART 100 UNITS/ML 3 ML PEN SC SCH ×4 (09:04→20:57)
[2020-06-25] MEDS: LOSARTAN POTASSIUM 50 MG TAB PO SCH (09:06)
[2020-06-25] MEDS: dexAMETHasone 6 MG in SYRINGE 0 ML IV SCH (09:06)
[2020-06-25] MEDS: CHOLECALCIFEROL 1,000 UNITS 25 MCG TAB PO SCH (09:06)
[2020-06-25] MEDS: APIXABAN 5 MG TABLET PO SCH ×2 (09:06→20:27)
[2020-06-25] MEDS: guaiFENesin 600 MG TABCR PO SCH ×2 (09:07→20:28)
[2020-06-25] MEDS: METOPROLOL SUCC 50MG EXT REL TAB PO SCH ×2 (09:07→20:27)
[2020-06-25] MEDS: FERROUS GLUCONATE 324 MG TAB PO SCH (09:07)
[2020-06-25] MEDS: FLUTICASONE/VILANTEROL 100/25MCG 14 PUFFS/INHALER INH SCH (09:08)
[2020-06-25] MEDS ORDERED: INSULIN GLARGINE SOLOSTAR 100 UNITS/ML 3 ML PEN SC ONE (12:01)
[2020-06-25] MEDS: GABAPENTIN 100 MG CAP PO SCH ×3 (12:42→20:57)
[2020-06-25] MEDS: cefTRIAXone SODIUM 2,000 MG in DEXTROSE 5% 50 ML IV SCH (18:18)
--- NOTE | 2020-06-25 20:17 | Hospitalist Progress Note ---
Date of Service June 25, 2020 Assessment & Plan (1) Acute respiratory failure with hypoxia: 2nd to COVID-19 pneumonia, COPD exacerbation, and potentially a superimposed bacterial process of the lungs given his elevated procalcitonin level. Was on BIPAP in ER and is now weaned down to 4 L nasal cannula VBG checked - CO2 and pH acceptable. Cont IV steroids with dexamethasone, antibiotics, supportive care -Continue flutter valve and scheduled albuterol as well as Breo Ellipta (2) Pneumonia due to COVID-19 virus: Initial diagnosis on 06/11/20. CTA chest with extensive b/l infiltrates. Procalcitonin elevated suggestive of possible superimposed bacterial pneumonia. Dimer significantly elevated on admission at 6000 and now improved to 5000 No PEs fortunately. Although he is 10+ days since symptom onset he is doing worse overall especially from respiratory standpoint. Thus, there may be some utility of convalescent plasma. -Received convalescent plasma on 06/25 -Continue IV Decadron as above for hypoxia and COPD exacerbation and increase to BID dosing if wheezing/symptoms worsen from COPD. -Likely very limited utility from remdesivir at this point in time; thus defer. Given elevated procalcitonin and clear worsening of pulmonary symptoms he could have superimposed bacterial pneumonia. Thus it is reasonable to continue CAP treatment including rocephin with doxycycline x7-day course. -No blood cultures drawn and has been afebrile except for a very low-grade fever of 37.7 upon arrival -Follow CBC, CMP, CRP, ESR, D-dimer, ferritin, LDH (3) COPD exacerbation: 2nd to COVID-19 infection. Improving today with improved hypoxia Continue IV decadron. Continue bronchodilators q4h scheduled. Continue flutter valve/incentive spirometry. Continue Mucinex 1200mg BID. Continue usual home inhalers. Continue nebs prn. (4) Diabetes mellitus type 2, uncontrolled: Is on high doses of basal-bolus insulin at home. With significant hyperglycemia here secondary to corticosteroids in the setting of acute illness a1c December 2019 was 6.6%. Increase Lantus to 55 units this morning and tighten down NovoLog range, correction factor, and carb ratio (5) CKD stage 3 secondary to diabetes: baseline Cr about 1.2 Creatinine was 1.4 on admission 1 L of normal saline gentle fluids were given overnight and creatinine now is back to baseline at 1.24 -Avoid nephrotoxins -renally dose meds when appropriate -follow BMP -Continue losartan (6) JAGDEEP (obstructive sleep apnea): is not treated with CPAP/BIPAP or O2 at home (7) Paroxysmal atrial fibrillation: noted. remains in NSR on telemetry cont metoprolol succinate 50mg BID. cont apixaban BID. (8) Hypertension: Blood pressures are controlled Continue home metoprolol, losartan (9) Dyslipidemia: AST is improved, therefore can restart simvastatin CPK noted to be normal (10) Anemia: presenting Hb in the 9s and decreased slightly with IV fluid hydration 8.5 last Hb in [facility] was 12 in December 2018 MCV is microcytic in the low 80s takes Fe at home Iron studies here show iron deficiency with transferrin saturation of 9% He is on Eliquis trend the CBC Check Hemoccult stool - will order IV iron Needs GI work-up as an outpatient if not already done previously (11) Abnormal liver CT: CT appears mildly nodular on CT scan and also noted to have esophageal varices on CT scan. Will need further follow-up as an outpatient with GI (12) Diabetic nephropathy associated with type 2 diabetes mellitus: Restart home gabapentin (13) DVT prophylaxis: eliquis 5mg BID Disposition-continued stay Full code Admission and Anticipated Discharge Date Admission Date: June 24, 2020 Subjective Patient reports he still feels short of breath and is coughing. He denies any nausea or vomiting. He is eating but appetite is down and food does not taste good. He denies any headache or lightheadedness. Telemetry with normal sinus rhythm with rates in the 60s to 90s, PACs Review of Systems Review of Systems: All systems reviewed & are unremarkable except as noted in HPI & below Physical Exam Constitutional: WD/WN, vitals as above + obese Eyes: + anicteric sclerae Neck: trachea midline, no thyromegaly Respiratory: normal respiratory effort Auscultation: + crackles (Bilateral lower and middle lung ng); no rhonchi and no wheezes Cardiovascular: RRR, no murmur, no edema Chest (Breasts): Chest: normal inspection of chest Gastrointestinal (Abdomen): normal bowel sounds, soft, nontender, no hepatosplenomegaly Musculoskeletal: Extremities: extremities normal to inspection; no cyanosis and no clubbing Skin: no rashes, warm and dry Neurologic: moves all extremities and awake; no focal motor deficits Psychiatric: A+Ox3, euthymic affect Lymphatic: no lymphedema Results & Data Results & Data ([facility]) Vital Signs (Past 12 Hours) Vital Signs Temp Pulse Pulse Resp BP Pulse Ox 06/25/20 19:39 36.5 C 75 24 121/65 906 H 06/25/20 16:00 80 06/25/20 15:52 78 18 131/64 92 06/25/20 15:24 78 18 94 06/25/20 13:46 36.6 C 76 18 144/78 H 92 Laboratory Results 06/25/20 06/25/20 06/25/20 Range/Units 16:38 11:15 11:14 WBC (4.8-10.8) K/uL RBC (4.7-6.1) M/uL Hgb (14.0-18.0) g/dL Hct (42-52) % MCV (80-100) fL MCH (25-34) pg MCHC (32-36) g/dL RDW Std Deviation (36.4-46.3) fL RDW Coeff of Pierce (11.5-14.5) % Plt Count (130-400) K/uL MPV (7.4-10.4) fL Absolute Nucleated RBC (0-0) K/uL Nucleated RBC % (auto) % D-Dimer (0-500) ug/L FEU Sodium (136-145) mmol/L Potassium (3.5-5.1) mmol/L Chloride (98-107) mmol/L Carbon Dioxide (21-32) mmol/L Anion Gap (3-11) BUN (7-18) mg/dl Creatinine (0.6-1.4) mg/dl Est Cr Clr Drug Dosing ml/min Est GFR ( Amer) Est GFR (Non-Af Amer) BUN/Creatinine Ratio (10-20) Glucose (70-99) mg/dl POC Glucose 132 H 331 H* 322 H* (70-99) mg/dl Calcium (8.5-10.1) mg/dl Iron (35-175) mcg/dl Transferrin (200-360) mg/dl Transferrin % Sat (20-50) % Ferritin (8-388) ng/ml AST (15-37) U/L Blood Type Antibody Screen 12/08/1406/25/20 06/25/20 Range/Units 07:58 05:56 05:56 WBC (4.8-10.8) K/uL RBC (4.7-6.1) M/uL Hgb (14.0-18.0) g/dL Hct (42-52) % MCV (80-100) fL MCH (25-34) pg MCHC (32-36) g/dL RDW Std Deviation (36.4-46.3) fL RDW Coeff of Pierce (11.5-14.5) % Plt Count (130-400) K/uL MPV (7.4-10.4) fL Absolute Nucleated RBC (0-0) K/uL Nucleated RBC % (auto) % D-Dimer 5030 H* (0-500) ug/L FEU Sodium 136 (136-145) mmol/L Potassium 4.5 (3.5-5.1) mmol/L Chloride 107 (98-107) mmol/L Carbon Dioxide 23 (21-32) mmol/L Anion Gap 6.0 (3-11) BUN 29 H (7-18) mg/dl Creatinine 1.24 (0.6-1.4) mg/dl Est Cr Clr Drug Dosing 62.9 ml/min Est GFR ( Amer) 64.1 Est GFR (Non-Af Amer) 55.3 BUN/Creatinine Ratio 23.0 H (10-20) Glucose 233 H (70-99) mg/dl POC Glucose 295 H (70-99) mg/dl Calcium 8.6 (8.5-10.1) mg/dl Iron 19 L (35-175) mcg/dl Transferrin 156 L (200-360) mg/dl Transferrin % Sat 9 L (20-50) % Ferritin 148.2 (8-388) ng/ml AST 52 H (15-37) U/L Blood Type Antibody Screen 06/25/20 06/24/20 06/24/20 Range/Units 05:56 20:16 14:58 WBC 11.11 H (4.8-10.8) K/uL RBC 3.13 L (4.7-6.1) M/uL Hgb 8.5 L (14.0-18.0) g/dL Hct 27.2 L (42-52) % MCV 86.9 (80-100) fL MCH 27.2 (25-34) pg MCHC 31.3 L (32-36) g/dL RDW Std Deviation 50.1 H (36.4-46.3) fL RDW Coeff of Pierce 15.8 H (11.5-14.5) % Plt Count 313 (130-400) K/uL MPV 11.2 H (7.4-10.4) fL Absolute Nucleated RBC 0.08 H (0-0) K/uL Nucleated RBC % (auto) 0.7 % D-Dimer (0-500) ug/L FEU Sodium (136-145) mmol/L Potassium (3.5-5.1) mmol/L Chloride (98-107) mmol/L Carbon Dioxide (21-32) mmol/L Anion Gap (3-11) BUN (7-18) mg/dl Creatinine (0.6-1.4) mg/dl Est Cr Clr Drug Dosing ml/min Est GFR ( Amer) Est GFR (Non-Af Amer) BUN/Creatinine Ratio (10-20) Glucose (70-99) mg/dl POC Glucose 285 H (70-99) mg/dl Calcium (8.5-10.1) mg/dl Iron (35-175) mcg/dl Transferrin (200-360) mg/dl Transferrin % Sat (20-50) % Ferritin (8-388) ng/ml AST (15-37) U/L Blood Type A Positive Antibody Screen NEGATIVE PG Care Time/CCT Total # of Minutes Spent Total Time Spent with Patient: Total time spent is greater than 50% in coordination of care (as documented) at patient's floor/unit and/or counseling patient: Coding Level of Care Code 08554 Subseq Hosp Care Lvl 3 Diagnoses Acute respiratory failure with hypoxia J96.01 Pneumonia due to COVID-19 virus U07.1; J12.89 COPD exacerbation J44.1 Diabetes mellitus type 2, uncontrolled E11.65 Glycemic state: with hyperglycemia CKD stage 3 secondary to diabetes E11.22; N18.3 JAGDEEP (obstructive sleep apnea) G47.33 Paroxysmal atrial fibrillation I48.0 Hypertension I10 Hypertension type: essential hypertension Dyslipidemia E78.5 [address]emia [address]64[address] R93.2 Diabetic nephropathy associated with type 2 diabetes mellitus E11.21 DVT prophylaxis Z29.9 (1) Diabetes mellitus type 2, uncontrolled Glycemic state: with hyperglycemia Qualified Code(s): E11.65 - Type 2 diabetes mellitus with hyperglycemia (2) Hypertension Hypertension type: essential hypertension Qualified Code(s): I10 - Essential (primary) hypertension
[2020-06-25] MEDS: DOCUSATE SODIUM 100 MG CAP PO SCH (20:26)
[2020-06-26] MEDS: SIMVASTATIN 40 MG TAB PO SCH ×2 (00:26→20:25)
[2020-06-26] MEDS: TRAVOPROST Z 0.004% OPH SOLN 2.5 ML BTL OPL SCH ×2 (00:27→20:25)
[2020-06-26] MEDS: ALBUTEROL HFA 8 GM INHALER INH SCH ×6 (03:21→22:52)
[2020-06-26] MEDS: DOXYCYCLINE HYCLATE 100 MG in DEXTROSE 5% 100 ML IV SCH ×2 (05:52→18:19)
[2020-06-26 07:09] LABS: Basophils # (auto) 0.01 K/uL (0-0.2); Basophils % (auto) 0.1 %; Hematocrit (blood only) 26.9 % (42-52); Hemoglobin 8.3 g/dL (14.0-18.0); Immature Granulocytes # (auto) 0.04 K/uL (0.00-0.02); Immature Granulocytes % (auto) 0.3 %; Lymphocytes # (auto) 1.03 K/uL (1.2-3.4); Lymphocytes % (auto) 7.3 %; Mean Corpuscular Hemoglobin 26.9 pg (25-34); Mean Corpuscular Hgb Conc 30.9 g/dL (32-36); Mean Corpuscular Volume 87.3 fL (80-100); Mean Platelet Volume 11.4 fL (7.4-10.4); Monocytes % (auto) 6.4 %; Neutrophils # (auto) 12.14 K/uL (1.4-6.5); Neutrophils % (auto) 85.9 %; Nucleated RBC # (auto) 0.08 K/uL (0-0); Nucleated RBC % (auto) 0.6 %; Platelet Count 320 K/uL (130-400); RDW Coefficient of Variation 15.9 % (11.5-14.5); RDW Standard Deviation 50.8 fL (36.4-46.3); Red Blood Count 3.08 M/uL (4.7-6.1); White Blood Count 14.12 K/uL (4.8-10.8)
[2020-06-26 07:32] LABS: D Dimer 4660 ug/L FEU (0-500)
[2020-06-26 07:33] LABS: Albumin Level 2.2 gm/dl (3.4-5.0); BUN Creatinine Ratio 33.9 (10-20); C Reactive Protein 8.99 mg/dl (0-0.29); Calcium 8.5 mg/dl (8.5-10.1); Creatinine Clr Calc Pharmacy 71.5 ml/min; Est GFR (Non-African American) 64.7; Magnesium 2.1 mg/dl (1.8-2.4); Potassium 4.5 mmol/L (3.5-5.1)
[2020-06-26 07:38] LABS: Albumin Globulin Ratio 0.4 (0.9-2); Bilirubin,Total 0.4 mg/dl (0.2-1); Ferritin 119.8 ng/ml (8-388); Globulin 5.1 gm/dl (2.5-4.0); Total Protein 7.3 gm/dl (6.4-8.2)
[2020-06-26] MEDS: INSULIN ASPART 100 UNITS/ML 3 ML PEN SC SCH ×4 (08:34→20:51)
[2020-06-26] MEDS: dexAMETHasone 6 MG in SYRINGE 0 ML IV SCH (08:35)
[2020-06-26] MEDS: guaiFENesin 600 MG TABCR PO SCH ×2 (08:36→20:24)
[2020-06-26] MEDS: DOCUSATE SODIUM 100 MG CAP PO SCH ×2 (08:36→20:24)
[2020-06-26] MEDS: FLUTICASONE/VILANTEROL 100/25MCG 14 PUFFS/INHALER INH SCH (08:36)
[2020-06-26] MEDS: CHOLECALCIFEROL 1,000 UNITS 25 MCG TAB PO SCH (08:37)
[2020-06-26] MEDS: APIXABAN 5 MG TABLET PO SCH ×2 (08:37→20:25)
[2020-06-26] MEDS: LOSARTAN POTASSIUM 50 MG TAB PO SCH (08:37)
[2020-06-26] MEDS: METOPROLOL SUCC 50MG EXT REL TAB PO SCH ×2 (08:37→20:24)
[2020-06-26] MEDS: GABAPENTIN 100 MG CAP PO SCH ×4 (08:38→20:24)
[2020-06-26] MEDS ORDERED: IRON SUCROSE 300 MG in SODIUM CHLORIDE 0.9% 250 ML IV ONE (09:00)
[2020-06-26] MEDS ORDERED: INSULIN GLARGINE SOLOSTAR 100 UNITS/ML 3 ML PEN SQ SCH (09:00)
[2020-06-26] MEDS ORDERED: INSULIN HUMAN REGULAR PER UNIT 10 UNITS in SYRINGE 9.9 ML IV STA (12:21)
[2020-06-26] MEDS ORDERED: PHARMACY GLYCEMIC MGMT CONSULT PRN (12:30)
--- NOTE | 2020-06-26 13:02 | Pharmacy Report ---
Pharmacy Glycemic Short Note 2 - Date of Service June 26, 2020 - Glycemic Short BSG Results (Last 24 hours): 06/25/20 06/25/20 06/26/20 16:38 20:50 00:24 Glucose POC Glucose 132 H 264 H 171 H 06/26/20 06/26/20 06/26/20 06:08 07:39 11:20 Glucose 168 H POC Glucose 218 H 414 H* OUTPATIENT ANTIDIABETIC REGIMEN: * NOVOLOG 25 units TID, Lantus 40 units QAM, Metformin BID * A1c 6.6% 01/01/20 ASSESSMENT: * Mr. Olson is a 80 yo type 2 diabetic admitted with COVID-19 infection, currently being treated with dexamethasone 6 mg daily- patient's BSGs have increased with steroid use * BSG @ lunch 414 mg/dL- patient being treated with 10 units of IV insulin, yesterday lunch BSG 331/322 corrected to 132 at dinner with correction factor of 8, CR of 4. Would hesitate to use tight ratio for today's BSG since he is receiving 10 units IV, so will adjust correction factor to 10 for lunch and possibly tighten again with dinner. Will tighten carb ratio. * Will initiate NPH insulin tomorrow AM to help cover the dexamethasone, will start with 0.4 units/kg of adjusted body weight PLAN FOR INPATIENT GLYCEMIC CONTROL: * Hold outpatient oral diabetes medications * Basal insulin * Lantus 55 units SQ qAM * Bolus insulin * NovoLog per scale ACHS or Q6hrs while NPO * Goal Range: Low 110 mg/dL - High 140 mg/dL * Correction Factor: 10 mg/dL/unit * Nutritional / Prandial insulin per carb ratio of 1 unit per 3 grams CHO consumed PLAN FOR DISCHARGE: * tbd
--- NOTE | 2020-06-26 16:10 | Hospitalist Progress Note ---
Date of Service June 26, 2020 Assessment & Plan (1) Acute respiratory failure with hypoxia: 2nd to COVID-19 pneumonia, COPD exacerbation, and suspected superimposed bacterial process of the lungs given his elevated procalcitonin level. Was on BIPAP in ER and is now weaned down to 4 L nasal cannula, much improved VBG checked - CO2 and pH acceptable. Cont IV steroids with dexamethasone, antibiotics, supportive care -Continue flutter valve and scheduled albuterol as well as Breo Ellipta -Continue mobilization-getting out of bed to chair (2) Pneumonia due to COVID-19 virus: Initial diagnosis on 06/11/20. CTA chest with extensive b/l infiltrates. Procalcitonin elevated suggestive of possible superimposed bacterial pneumonia. This is now trending downward Dimer significantly elevated on admission at 6000 and now trending downward No PEs fortunately. Although he is 10+ days since symptom onset he was doing worse overall especially from respiratory standpoint. Thus, he received convalescent plasma on 06/25 -Continue IV Decadron as above for hypoxia and COPD exacerbation -Likely very limited utility from remdesivir at this point in time; thus deferred. -continue CAP treatment with rocephin with doxycycline x7-day course-last day w ould be 06/30 -No blood cultures drawn and has been afebrile except for a very low-grade fever of 37.7 upon arrival -Follow CBC, CMP, CRP, ESR, D-dimer, ferritin, LDH (3) COPD exacerbation: 2nd to COVID-19 infection. Much improved today Continue IV decadron. Continue bronchodilators q4h scheduled. Continue flutter valve/incentive spirometry. Continue Mucinex 1200mg BID. Continue usual home inhalers. Continue nebs prn. -Wean off oxygen as able to (4) Diabetes mellitus type 2, uncontrolled: Is on high doses of basal-bolus insulin at home. With significant hyperglycemia here secondary to corticosteroids in the setting of acute illness-blood sugar above 400 today Gave IV insulin 10 units x 1 a1c December 2019 was 6.6%. Continue Lantus 55 units every morning and add NPH to help with corticosteroid induced hyperglycemia -Continue NovoLog sliding scale (5) CKD stage 3 secondary to diabetes: baseline Cr about 1.2 Creatinine was 1.4 on admission 1 L of normal saline gentle fluids were given overnight and creatinine now is back to below baseline at 1.09 -Avoid nephrotoxins -renally dose meds when appropriate -follow BMP -Continue losartan (6) JAGDEEP (obstructive sleep apnea): is not treated with CPAP/BIPAP or O2 at home (7) Paroxysmal atrial fibrillation: noted. remains in NSR on telemetry cont metoprolol succinate 50mg BID. cont apixaban BID. (8) Hypertension: Blood pressures are controlled Continue home metoprolol, losartan (9) Dyslipidemia: Continue simvastatin CPK noted to be normal (10) Anemia: presenting Hb in the 9s and decreased slightly with IV fluid hydration Hemoglobin 8.3 last Hb in [facility] was 12 in December 2018 MCV is microcytic in the low 80s takes Fe at home and patient reports he has been anemic his whole life and that he gets nosebleeds if his hemoglobin level is pushed to more than 12 with iron replacement He had an EGD he believes about 10 years ago but had a capsule endoscopy he thinks about 5 years ago and 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 Will need further follow-up as an outpatient with GI (12) Diabetic nephropathy associated with type 2 diabetes mellitus: Continue home gabapentin (13) DVT prophylaxis: eliquis 5mg BID Disposition-continued stay on medical floor telemetry Full code Admission and Anticipated Discharge Date Admission Date: June 24, 2020 Subjective Pt feeling better today. Less SOB, appetite improved, eating all of his meals. Denies any chest pain. Feels energy is improved and was out of bed to chair for most of the day which he felt made him feel better Telemetry with normal sinus rhythm with rates in the 60s to 70s, PACs Review of Systems Review of Systems: All systems reviewed & are unremarkable except as noted in HPI & below Physical Exam Constitutional: WD/WN, vitals as above + obese Eyes: + anicteric sclerae Neck: trachea midline, no thyromegaly Respiratory: normal respiratory effort Auscultation: + crackles (Bilateral lower lung ng, improved from yesterday); no rhonchi and no wheezes Cardiovascular: RRR, no murmur, no edema Chest (Breasts): Chest: normal inspection of chest Gastrointestinal (Abdomen): normal bowel sounds, soft, nontender, no hepatosplenomegaly Musculoskeletal: Extremities: extremities normal to inspection; no cyanosis and no clubbing Skin: no rashes, warm and dry Neurologic: moves all extremities and awake; no focal motor deficits Psychiatric: A+Ox3, euthymic affect Lymphatic: no lymphedema Results & Data Results & Data ([facility]) Vital Signs (Past 12 Hours) Vital Signs Temp Pulse Pulse Resp BP Pulse Ox 06/26/20 15:40 36.5 C 75 24 130/72 91 06/26/20 14:12 80 20 92 06/26/20 13:03 36.7 C 76 20 137/67 95 06/26/20 11:26 70 20 93 06/26/20 09:05 82 20 90 06/26/20 08:14 36.6 C 71 18 127/72 92 06/26/20 08:00 74 Laboratory Results 06/26/20 06/26/20 06/26/20 Range/Units 16:19 11:20 07:39 WBC (4.8-10.8) K/uL RBC (4.7-6.1) M/uL Hgb (14.0-18.0) g/dL Hct (42-52) % MCV (80-100) fL MCH (25-34) pg MCHC (32-36) g/dL RDW Std Deviation (36.4-46.3) fL RDW Coeff of Pierce (11.5-14.5) % Plt Count (130-400) K/uL MPV (7.4-10.4) fL Immature Gran % (Auto) % Neut % (Auto) % Lymph % (Auto) % Early % (Auto) % Eos % (Auto) % Baso % (Auto) % Neut # (Auto) (1.4-6.5) K/uL Lymph # (Auto) (1.2-3.4) K/uL Early # (Auto) (0.11-0.59) K/uL Eos # (Auto) (0-0.5) K/uL Baso # (Auto) (0-0.2) K/uL Immature Gran # (Auto) (0.00-0.02) K/uL Absolute Nucleated RBC (0-0) K/uL Nucleated RBC % (auto) % ESR (0-14) mm/hr D-Dimer (0-500) ug/L FEU Sodium (136-145) mmol/L Potassium (3.5-5.1) mmol/L Chloride (98-107) mmol/L Carbon Dioxide (21-32) mmol/L Anion Gap (3-11) BUN (7-18) mg/dl Creatinine (0.6-1.4) mg/dl Est Cr Clr Drug Dosing ml/min Est GFR ( Amer) Est GFR (Non-Af Amer) BUN/Creatinine Ratio (10-20) Glucose (70-99) mg/dl POC Glucose 246 H 414 H* 218 H (70-99) mg/dl Calcium (8.5-10.1) mg/dl Magnesium (1.8-2.4) mg/dl Ferritin (8-388) ng/ml Total Bilirubin (0.2-1) mg/dl AST (15-37) U/L ALT (12-78) U/L Alkaline Phosphatase (45-117) U/L Lactate Dehydrogenase (87-241) U/L C-Reactive Protein (0-0.29) mg/dl Total Protein (6.4-8.2) gm/dl Albumin (3.4-5.0) gm/dl Globulin (2.5-4.0) gm/dl Albumin/Globulin Ratio (0.9-2) Procalcitonin (0-0.5) ng/ml 06/26/20 06/26/20 06/26/20 Range/Units 06:08 06:08 06:08 WBC (4.8-10.8) K/uL RBC (4.7-6.1) M/uL Hgb (14.0-18.0) g/dL Hct (42-52) % MCV (80-100) fL MCH (25-34) pg MCHC (32-36) g/dL RDW Std Deviation (36.4-46.3) fL RDW Coeff of Pierce (11.5-14.5) % Plt Count (130-400) K/uL MPV (7.4-10.4) fL Immature Gran % (Auto) % Neut % (Auto) % Lymph % (Auto) % Early % (Auto) % Eos % (Auto) % Baso % (Auto) % Neut # (Auto) (1.4-6.5) K/uL Lymph # (Auto) (1.2-3.4) K/uL Early # (Auto) (0.11-0.59) K/uL Eos # (Auto) (0-0.5) K/uL Baso # (Auto) (0-0.2) K/uL Immature Gran # (Auto) (0.00-0.02) K/uL Absolute Nucleated RBC (0-0) K/uL Nucleated RBC % (auto) % ESR (0-14) mm/hr D-Dimer (0-500) ug/L FEU Sodium 138 (136-145) mmol/L Potassium 4.5 (3.5-5.1) mmol/L Chloride 109 H (98-107) mmol/L Carbon Dioxide 22 (21-32) mmol/L Anion Gap 7.0 (3-11) BUN 37 H (7-18) mg/dl Creatinine 1.09 (0.6-1.4) mg/dl Est Cr Clr Drug Dosing 71.5 ml/min Est GFR ( Amer) 75.0 Est GFR (Non-Af Amer) 64.7 BUN/Creatinine Ratio 33.9 H (10-20) Glucose 168 H (70-99) mg/dl POC Glucose (70-99) mg/dl Calcium 8.5 (8.5-10.1) mg/dl Magnesium 2.1 (1.8-2.4) mg/dl Ferritin 119.8 (8-388) ng/ml Total Bilirubin 0.4 (0.2-1) mg/dl AST 52 H (15-37) U/L ALT 45 (12-78) U/L Alkaline Phosphatase 89 (45-117) U/L Lactate Dehydrogenase 432 H (87-241) U/L C-Reactive Protein 8.99 H (0-0.29) mg/dl Total Protein 7.3 (6.4-8.2) gm/dl Albumin 2.2 L (3.4-5.0) gm/dl Globulin 5.1 H (2.5-4.0) gm/dl Albumin/Globulin Ratio 0.4 L (0.9-2) Procalcitonin 0.31 (0-0.5) ng/ml 06/26/20 06/26/20 06/26/20 Range/Units 06:08 06:08 06:08 WBC 14.12 H (4.8-10.8) K/uL RBC 3.08 L (4.7-6.1) M/uL Hgb 8.3 L (14.0-18.0) g/dL Hct 26.9 L (42-52) % MCV 87.3 (80-100) fL MCH 26.9 (25-34) pg MCHC 30.9 L (32-36) g/dL RDW Std Deviation 50.8 H (36.4-46.3) fL RDW Coeff of Pierce 15.9 H (11.5-14.5) % Plt Count 320 (130-400) K/uL MPV 11.4 H (7.4-10.4) fL Immature Gran % (Auto) 0.3 % Neut % (Auto) 85.9 % Lymph % (Auto) 7.3 % Early % (Auto) 6.4 % Eos % (Auto) 0.0 % Baso % (Auto) 0.1 % Neut # (Auto) 12.14 H (1.4-6.5) K/uL Lymph # (Auto) 1.03 L (1.2-3.4) K/uL Early # (Auto) 0.90 H (0.11-0.59) K/uL Eos # (Auto) 0.00 (0-0.5) K/uL Baso # (Auto) 0.01 (0-0.2) K/uL Immature Gran # (Auto) 0.04 H (0.00-0.02) K/uL Absolute Nucleated RBC 0.08 H (0-0) K/uL Nucleated RBC % (auto) 0.6 % ESR > 90 H (0-14) mm/hr D-Dimer 4660 H* (0-500) ug/L FEU Sodium (136-145) mmol/L Potassium (3.5-5.1) mmol/L Chloride (98-107) mmol/L Carbon Dioxide (21-32) mmol/L Anion Gap (3-11) BUN (7-18) mg/dl Creatinine (0.6-1.4) mg/dl Est Cr Clr Drug Dosing ml/min Est GFR ( Amer) Est GFR (Non-Af Amer) BUN/Creatinine Ratio (10-20) Glucose (70-99) mg/dl POC Glucose (70-99) mg/dl Calcium (8.5-10.1) mg/dl Magnesium (1.8-2.4) mg/dl Ferritin (8-388) ng/ml Total Bilirubin (0.2-1) mg/dl AST (15-37) U/L ALT (12-78) U/L Alkaline Phosphatase (45-117) U/L Lactate Dehydrogenase (87-241) U/L C-Reactive Protein (0-0.29) mg/dl Total Protein (6.4-8.2) gm/dl Albumin (3.4-5.0) gm/dl Globulin (2.5-4.0) gm/dl Albumin/Globulin Ratio (0.9-2) Procalcitonin (0-0.5) ng/ml 06/26/20 06/25/20 Range/Units 00:24 20:50 WBC (4.8-10.8) K/uL RBC (4.7-6.1) M/uL Hgb (14.0-18.0) g/dL Hct (42-52) % MCV (80-100) fL MCH (25-34) pg MCHC (32-36) g/dL RDW Std Deviation (36.4-46.3) fL RDW Coeff of Pierce (11.5-14.5) % Plt Count (130-400) K/uL MPV (7.4-10.4) fL Immature Gran % (Auto) % Neut % (Auto) % Lymph % (Auto) % Early % (Auto) % Eos % (Auto) % Baso % (Auto) % Neut # (Auto) (1.4-6.5) K/uL Lymph # (Auto) (1.2-3.4) K/uL Early # (Auto) (0.11-0.59) K/uL Eos # (Auto) (0-0.5) K/uL Baso # (Auto) (0-0.2) K/uL Immature Gran # (Auto) (0.00-0.02) K/uL Absolute Nucleated RBC (0-0) K/uL Nucleated RBC % (auto) % ESR (0-14) mm/hr D-Dimer (0-500) ug/L FEU Sodium (136-145) mmol/L Potassium (3.5-5.1) mmol/L Chloride (98-107) mmol/L Carbon Dioxide (21-32) mmol/L Anion Gap (3-11) BUN (7-18) mg/dl Creatinine (0.6-1.4) mg/dl Est Cr Clr Drug Dosing ml/min Est GFR ( Amer) Est GFR (Non-Af Amer) BUN/Creatinine Ratio (10-20) Glucose (70-99) mg/dl POC Glucose 171 H 264 H (70-99) mg/dl Calcium (8.5-10.1) mg/dl Magnesium (1.8-2.4) mg/dl Ferritin (8-388) ng/ml Total Bilirubin (0.2-1) mg/dl AST (15-37) U/L ALT (12-78) U/L Alkaline Phosphatase (45-117) U/L Lactate Dehydrogenase (87-241) U/L C-Reactive Protein (0-0.29) mg/dl Total Protein (6.4-8.2) gm/dl Albumin (3.4-5.0) gm/dl Globulin (2.5-4.0) gm/dl Albumin/Globulin Ratio (0.9-2) Procalcitonin (0-0.5) ng/ml PG Care Time/CCT Total # of Minutes Spent Total Time Spent with Patient: Total time spent is greater than 50% in coordination of care (as documented) at patient's floor/unit and/or counseling patient: Coding Level of Care Code 75048 Subseq Hosp Care Lvl 3 Diagnoses Acute respiratory failure with hypoxia J96.01 Pneumonia due to COVID-19 virus U07.1; J12.89 COPD exacerbation J44.1 Diabetes mellitus type 2, uncontrolled E11.65 Glycemic state: with hyperglycemia CKD stage 3 secondary to diabetes E11.22; N18.3 JAGDEEP (obstructive sleep apnea) G47.33 Paroxysmal atrial fibrillation I48.0 Hypertension I10 Hypertension type: essential hypertension Dyslipidemia E78.5 [address]emia [address]64[address] R93.2 Diabetic nephropathy associated with type 2 diabetes mellitus E11.21 DVT prophylaxis Z29.9 (1) Diabetes mellitus type 2, uncontrolled Glycemic state: with hyperglycemia Qualified Code(s): E11.65 - Type 2 diabetes mellitus with hyperglycemia (2) Hypertension Hypertension type: essential hypertension Qualified Code(s): I10 - Essential (primary) hypertension
[2020-06-26] MEDS: cefTRIAXone SODIUM 2,000 MG in DEXTROSE 5% 50 ML IV SCH (18:19)
[2020-06-26] MEDS: PSYLLIUM 58.6% POWDER PACKET PO PRN (21:10)
[2020-06-27] MEDS: ALBUTEROL HFA 8 GM INHALER INH SCH ×6 (02:22→23:12)
[2020-06-27] MEDS: DOXYCYCLINE HYCLATE 100 MG in DEXTROSE 5% 100 ML IV SCH ×2 (03:07→17:32)
[2020-06-27 06:22] LABS: Basophils # (auto) 0.01 K/uL (0-0.2); Basophils % (auto) 0.1 %; Eosinophils # (auto) 0.01 K/uL (0-0.5); Eosinophils % (auto) 0.1 %; Hematocrit (blood only) 26.8 % (42-52); Hemoglobin 8.2 g/dL (14.0-18.0); Immature Granulocytes # (auto) 0.08 K/uL (0.00-0.02); Immature Granulocytes % (auto) 0.6 %; Lymphocytes # (auto) 1.32 K/uL (1.2-3.4); Lymphocytes % (auto) 9.2 %; Mean Corpuscular Hemoglobin 26.9 pg (25-34); Mean Corpuscular Hgb Conc 30.6 g/dL (32-36); Mean Corpuscular Volume 87.9 fL (80-100); Mean Platelet Volume 11.4 fL (7.4-10.4); Monocytes # (auto) 1.54 K/uL (0.11-0.59); Monocytes % (auto) 10.7 %; Neutrophils # (auto) 11.45 K/uL (1.4-6.5); Neutrophils % (auto) 79.3 %; Nucleated RBC # (auto) 0.09 K/uL (0-0); Nucleated RBC % (auto) 0.6 %; Platelet Count 308 K/uL (130-400); RDW Coefficient of Variation 15.8 % (11.5-14.5); RDW Standard Deviation 51.3 fL (36.4-46.3); Red Blood Count 3.05 M/uL (4.7-6.1); White Blood Count 14.41 K/uL (4.8-10.8)
[2020-06-27 06:47] LABS: Albumin Level 2.2 gm/dl (3.4-5.0); BUN Creatinine Ratio 31.4 (10-20); Calcium 8.1 mg/dl (8.5-10.1); Creatinine Clr Calc Pharmacy 71.6 ml/min; Est GFR (Non-African American) 64.7; Magnesium 2.2 mg/dl (1.8-2.4); Potassium 4.6 mmol/L (3.5-5.1)
[2020-06-27 06:49] LABS: Albumin Globulin Ratio 0.5 (0.9-2); Bilirubin,Total 0.4 mg/dl (0.2-1); C Reactive Protein 4.32 mg/dl (0-0.29); Globulin 4.7 gm/dl (2.5-4.0); Total Protein 6.9 gm/dl (6.4-8.2)
[2020-06-27 07:33] LABS: D Dimer 4770 ug/L FEU (0-500)
[2020-06-27] MEDS ORDERED: INSULIN HUMAN NPH SC SCH (08:00)
[2020-06-27 08:44] LABS: Estimated Average Glucose 200 mg/dl; Hemoglobin A1C 8.6 % (4.5-5.6)
[2020-06-27] MEDS: CHOLECALCIFEROL 1,000 UNITS 25 MCG TAB PO SCH (09:00)
[2020-06-27] MEDS: METOPROLOL SUCC 50MG EXT REL TAB PO SCH ×2 (09:00→20:33)
[2020-06-27] MEDS ORDERED: INSULIN GLARGINE SOLOSTAR 100 UNITS/ML 3 ML PEN SQ SCH (09:00)
[2020-06-27] MEDS: FERROUS GLUCONATE 324 MG TAB PO SCH (09:00)
[2020-06-27] MEDS: GABAPENTIN 100 MG CAP PO SCH ×3 (09:00→20:31)
[2020-06-27] MEDS: LOSARTAN POTASSIUM 50 MG TAB PO SCH (09:00)
[2020-06-27] MEDS: DOCUSATE SODIUM 100 MG CAP PO SCH ×2 (09:01→20:37)
[2020-06-27] MEDS: guaiFENesin 600 MG TABCR PO SCH ×2 (09:01→20:32)
[2020-06-27] MEDS: dexAMETHasone 6 MG in SYRINGE 0 ML IV SCH (09:01)
[2020-06-27] MEDS: FLUTICASONE/VILANTEROL 100/25MCG 14 PUFFS/INHALER INH SCH (09:01)
[2020-06-27] MEDS: APIXABAN 5 MG TABLET PO SCH ×2 (09:02→20:38)
[2020-06-27] MEDS: PSYLLIUM 58.6% POWDER PACKET PO PRN (09:02)
[2020-06-27] MEDS: INSULIN ASPART 100 UNITS/ML 3 ML PEN SC SCH ×3 (09:04→19:30)
[2020-06-27] MEDS: SENNA 8.6 MG TAB PO SCH (13:06)
[2020-06-27] MEDS: POLYETHYLENE (MIRALAX) 17 GM PACK PO SCH (13:06)
--- NOTE | 2020-06-27 16:05 | Hospitalist Progress Note ---
Date of Service June 27, 2020 Assessment & Plan (1) Acute respiratory failure with hypoxia: 2nd to COVID-19 pneumonia, COPD exacerbation, and suspected superimposed bacterial process of the lungs given his elevated procalcitonin level. Was on BIPAP in ER and is now weaned down to 2 L nasal cannula, much improved VBG checked - CO2 and pH acceptable. Cont IV steroids with dexamethasone, antibiotics, supportive care -Continue flutter valve and scheduled albuterol as well as Breo Ellipta -Continue mobilization-getting out of bed to chair (2) Pneumonia due to COVID-19 virus: Initial diagnosis on 06/11/20. CTA chest with extensive b/l infiltrates. Procalcitonin elevated suggestive of possible superimposed bacterial pneumonia. This is now trending downward Dimer significantly elevated on admission at 6000 and now trending downward No PEs fortunately. Although he was 10+ days since symptom onset at the time of admission, he was doing worse overall especially from respiratory standpoint. Thus, he received convalescent plasma on 06/25 -Continue IV Decadron as above for hypoxia and COPD exacerbation-last dose will be on 07/03 -Likely very limited utility from remdesivir at this point in time; thus deferred. -continue CAP treatment with rocephin with doxycycline x7-day course-last day would be 06/30 -No blood cultures drawn and has been afebrile except for a very low-grade fever of 37.7 upon arrival -Follow CBC, CMP, CRP, ESR, D-dimer, ferritin, LDH every other day (3) COPD exacerbation: 2nd to COVID-19 infection. Much improved Continue IV decadron. Continue bronchodilators q4h scheduled. Continue flutter valve/incentive spirometry. Continue Mucinex 1200mg BID. Continue usual home inhalers. Continue nebs prn. -Continue to wean off oxygen as able to (4) Diabetes mellitus type 2, uncontrolled: Is on high doses of basal-bolus insulin at home. With significant hyperglycemia here secondary to corticosteroids in the setting of acute illness-now much improved a1c December 2019 was 6.6%. Continue Lantus, NPH to help with corticosteroid induced hyperglycemia -Continue NovoLog sliding scale (5) CKD stage 3 secondary to diabetes: baseline Cr about 1.2 Creatinine was 1.4 on admission 1 L of normal saline gentle fluids were given overnight and creatinine now is back to below baseline at 1.09 -Avoid nephrotoxins -renally dose meds when appropriate -follow BMP -Continue losartan (6) JAGDEEP (obstructive sleep apnea): is not treated with CPAP/BIPAP or O2 at home (7) Paroxysmal atrial fibrillation: noted. remains in NSR on telemetry cont metoprolol succinate 50mg BID. cont apixaban BID. No need to remain on telemetry (8) Hypertension: Blood pressures are controlled Continue home metoprolol, losartan (9) Anemia: presenting Hb in the 9s and decreased slightly with IV fluid hydration Hemoglobin 8.2 today and stable last Hb in [facility] was 12 in December 2018 MCV is microcytic in the low 80s takes Fe at home and patient reports he has been anemic his whole life and that he gets nosebleeds if his hemoglobin level is pushed to more than 12 with iron replacement He had an EGD he believes about 10 years ago but had a capsule endoscopy he thinks about 5 years ago and 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 Will need further follow-up as an outpatient with GI (12) Diabetic nephropathy associated with type 2 diabetes mellitus: Continue home gabapentin (13) Dyslipidemia: Continue simvastatin CPK noted to be normal (14) DVT prophylaxis: eliquis 5mg BID Disposition-improving, but continued stay-can downgrade to medical/surgical floor off of telemetry Full code Admission and Anticipated Discharge Date Admission Date: June 24, 2020 Subjective Patient feeling better today. Still very constipated and has complaints about this, feels very bloated and has not moved his bowels in many days despite adding on MiraLAX and senna this morning. Denies shortness of breath, minimal cough. No chest pain. Is eating well. Telemetry with normal sinus rhythm with rates in the 60s to 70s. Review of Systems Review of Systems: All systems reviewed & are unremarkable except as noted in HPI & below Physical Exam Constitutional: WD/WN, vitals as above + obese Eyes: + anicteric sclerae Neck: trachea midline, no thyromegaly Respiratory: normal respiratory effort Auscultation: + crackles (Bilateral lower lung ng, improved from yesterday); no rhonchi and no wheezes Cardiovascular: RRR, no murmur, no edema Chest (Breasts): Chest: normal inspection of chest Gastrointestinal (Abdomen): normal bowel sounds, soft, nontender, no hepatosplenomegaly Musculoskeletal: Extremities: extremities normal to inspection; no cyanosis and no clubbing Skin: no rashes, warm and dry Neurologic: moves all extremities and awake; no focal motor deficits Psychiatric: A+Ox3, euthymic affect Lymphatic: no lymphedema Results & Data Results & Data ([facility]) Vital Signs (Past 12 Hours) Vital Signs Temp Pulse Pulse Resp BP Pulse Ox 06/27/20 15:53 84 18 90 06/27/20 15:41 36.8 C 84 22 121/60 90 06/27/20 11:30 36.6 C 82 18 109/52 L 92 06/27/20 11:22 79 18 94 06/27/20 08:47 36.5 C 76 20 116/57 L 98 06/27/20 07:52 69 18 96 06/27/20 04:34 36.6 C 72 18 124/60 92 Laboratory Results 06/27/20 06/27/20 06/27/20 Range/Units 16:51 11:52 07:54 WBC (4.8-10.8) K/uL RBC (4.7-6.1) M/uL Hgb (14.0-18.0) g/dL Hct (42-52) % MCV (80-100) fL MCH (25-34) pg MCHC (32-36) g/dL RDW Std Deviation (36.4-46.3) fL RDW Coeff of Pierce (11.5-14.5) % Plt Count (130-400) K/uL MPV (7.4-10.4) fL Immature Gran % (Auto) % Neut % (Auto) % Lymph % (Auto) % [place] % (Auto) % Eos % (Auto) % Baso % (Auto) % Neut # (Auto) (1.4-6.5) K/uL Lymph # (Auto) (1.2-3.4) K/uL [place] # (Auto) (0.11-0.59) K/uL Eos # (Auto) (0-0.5) K/uL Baso # (Auto) (0-0.2) K/uL Immature Gran # (Auto) (0.00-0.02) K/uL Absolute Nucleated RBC (0-0) K/uL Nucleated RBC % (auto) % ESR (0-14) mm/hr D-Dimer (0-500) ug/L FEU Sodium (136-145) mmol/L Potassium (3.5-5.1) mmol/L Chloride (98-107) mmol/L Carbon Dioxide (21-32) mmol/L Anion Gap (3-11) BUN (7-18) mg/dl Creatinine (0.6-1.4) mg/dl Est Cr Clr Drug Dosing ml/min Est GFR ( Amer) Est GFR (Non-Af Amer) BUN/Creatinine Ratio (10-20) Glucose (70-99) mg/dl POC Glucose 168 H 275 H 88 (70-99) mg/dl Estimat Average Glucose mg/dl Hemoglobin A1c (4.5-5.6) % Calcium (8.5-10.1) mg/dl Magnesium (1.8-2.4) mg/dl Total Bilirubin (0.2-1) mg/dl AST (15-37) U/L ALT (12-78) U/L Alkaline Phosphatase (45-117) U/L Lactate Dehydrogenase (87-241) U/L C-Reactive Protein (0-0.29) mg/dl Total Protein (6.4-8.2) gm/dl Albumin (3.4-5.0) gm/dl Globulin (2.5-4.0) gm/dl Albumin/Globulin Ratio (0.9-2) 06/27/20 06/27/20 06/27/20 Range/Units 05:38 05:38 05:38 WBC (4.8-10.8) K/uL RBC (4.7-6.1) M/uL Hgb (14.0-18.0) g/dL Hct (42-52) % MCV (80-100) fL MCH (25-34) pg MCHC (32-36) g/dL RDW Std Deviation (36.4-46.3) fL RDW Coeff of Pierce (11.5-14.5) % Plt Count (130-400) K/uL MPV (7.4-10.4) fL Immature Gran % (Auto) % Neut % (Auto) % Lymph % (Auto) % [place] % (Auto) % Eos % (Auto) % Baso % (Auto) % Neut # (Auto) (1.4-6.5) K/uL Lymph # (Auto) (1.2-3.4) K/uL [place] # (Auto) (0.11-0.59) K/uL Eos # (Auto) (0-0.5) K/uL Baso # (Auto) (0-0.2) K/uL Immature Gran # (Auto) (0.00-0.02) K/uL Absolute Nucleated RBC (0-0) K/uL Nucleated RBC % (auto) % ESR (0-14) mm/hr D-Dimer 4770 H* (0-500) ug/L FEU Sodium 140 (136-145) mmol/L Potassium 4.6 (3.5-5.1) mmol/L Chloride 112 H (98-107) mmol/L Carbon Dioxide 22 (21-32) mmol/L Anion Gap 6.0 (3-11) BUN 34 H (7-18) mg/dl Creatinine 1.09 (0.6-1.4) mg/dl Est Cr Clr Drug Dosing 71.6 ml/min Est GFR ( Amer) 75.0 Est GFR (Non-Af Amer) 64.7 BUN/Creatinine Ratio 31.4 H (10-20) Glucose 65 L (70-99) mg/dl POC Glucose (70-99) mg/dl Estimat Average Glucose mg/dl Hemoglobin A1c (4.5-5.6) % Calcium 8.1 L (8.5-10.1) mg/dl Magnesium 2.2 (1.8-2.4) mg/dl Total Bilirubin 0.4 (0.2-1) mg/dl AST 35 (15-37) U/L ALT 43 (12-78) U/L Alkaline Phosphatase 89 (45-117) U/L Lactate Dehydrogenase 385 H (87-241) U/L C-Reactive Protein 4.32 H (0-0.29) mg/dl Total Protein 6.9 (6.4-8.2) gm/dl Albumin 2.2 L (3.4-5.0) gm/dl Globulin 4.7 H (2.5-4.0) gm/dl Albumin/Globulin Ratio 0.5 L (0.9-2) 06/27/20 06/27/20 06/27/20 Range/Units 05:38 05:38 05:38 WBC 14.41 H (4.8-10.8) K/uL RBC 3.05 L (4.7-6.1) M/uL Hgb 8.2 L (14.0-18.0) g/dL Hct 26.8 L (42-52) % MCV 87.9 (80-100) fL MCH 26.9 (25-34) pg MCHC 30.6 L (32-36) g/dL RDW Std Deviation 51.3 H (36.4-46.3) fL RDW Coeff of Pierce 15.8 H (11.5-14.5) % Plt Count 308 (130-400) K/uL MPV 11.4 H (7.4-10.4) fL Immature Gran % (Auto) 0.6 % Neut % (Auto) 79.3 % Lymph % (Auto) 9.2 % Radford % (Auto) 10.7 % Eos % (Auto) 0.1 % Baso % (Auto) 0.1 % Neut # (Auto) 11.45 H (1.4-6.5) K/uL Lymph # (Auto) 1.32 (1.2-3.4) K/uL Rad[place] # (Auto) 1.54 H (0.11-0.59) K/uL Eos # (Auto) 0.01 (0-0.5) K/uL Baso # (Auto) 0.01 (0-0.2) K/uL Immature Gran # (Auto) 0.08 H (0.00-0.02) K/uL Absolute Nucleated RBC 0.09 H (0-0) K/uL Nucleated RBC % (auto) 0.6 % ESR 85 H (0-14) mm/hr D-Dimer (0-500) ug/L FEU Sodium (136-145) mmol/L Potassium (3.5-5.1) mmol/L Chloride (98-107) mmol/L Carbon Dioxide (21-32) mmol/L Anion Gap (3-11) BUN (7-18) mg/dl Creatinine (0.6-1.4) mg/dl Est Cr Clr Drug Dosing ml/min Est GFR ( Amer) Est GFR (Non-Af Amer) BUN/Creatinine Ratio (10-20) Glucose (70-99) mg/dl POC Glucose (70-99) mg/dl Estimat Average Glucose 200 mg/dl Hemoglobin A1c 8.6 H (4.5-5.6) % Calcium (8.5-10.1) mg/dl Magnesium (1.8-2.4) mg/dl Total Bilirubin (0.2-1) mg/dl AST (15-37) U/L ALT (12-78) U/L Alkaline Phosphatase (45-117) U/L Lactate Dehydrogenase (87-241) U/L C-Reactive Protein (0-0.29) mg/dl Total Protein (6.4-8.2) gm/dl Albumin (3.4-5.0) gm/dl Globulin (2.5-4.0) gm/dl Albumin/Globulin Ratio (0.9-2) 06/26/20 Range/Units 20:12 WBC (4.8-10.8) K/uL RBC (4.7-6.1) M/uL Hgb (14.0-18.0) g/dL Hct (42-52) % MCV (80-100) fL MCH (25-34) pg MCHC (32-36) g/dL RDW Std Deviation (36.4-46.3) fL RDW Coeff of Pierce (11.5-14.5) % Plt Count (130-400) K/uL MPV (7.4-10.4) fL Immature Gran % (Auto) % Neut % (Auto) % Lymph % (Auto) % [place] % (Auto) % Eos % (Auto) % Baso % (Auto) % Neut # (Auto) (1.4-6.5) K/uL Lymph # (Auto) (1.2-3.4) K/uL [place] # (Auto) (0.11-0.59) K/uL Eos # (Auto) (0-0.5) K/uL Baso # (Auto) (0-0.2) K/uL Immature Gran # (Auto) (0.00-0.02) K/uL Absolute Nucleated RBC (0-0) K/uL Nucleated RBC % (auto) % ESR (0-14) mm/hr D-Dimer (0-500) ug/L FEU Sodium (136-145) mmol/L Potassium (3.5-5.1) mmol/L Chloride (98-107) mmol/L Carbon Dioxide (21-32) mmol/L Anion Gap (3-11) BUN (7-18) mg/dl Creatinine (0.6-1.4) mg/dl Est Cr Clr Drug Dosing ml/min Est GFR ( Amer) Est GFR (Non-Af Amer) BUN/Creatinine Ratio (10-20) Glucose (70-99) mg/dl POC Glucose 270 H (70-99) mg/dl Estimat Average Glucose mg/dl Hemoglobin A1c (4.5-5.6) % Calcium (8.5-10.1) mg/dl Magnesium (1.8-2.4) mg/dl Total Bilirubin (0.2-1) mg/dl AST (15-37) U/L ALT (12-78) U/L Alkaline Phosphatase (45-117) U/L Lactate Dehydrogenase (87-241) U/L C-Reactive Protein (0-0.29) mg/dl Total Protein (6.4-8.2) gm/dl Albumin (3.4-5.0) gm/dl Globulin (2.5-4.0) gm/dl Albumin/Globulin Ratio (0.9-2) PG Care Time/CCT Total # of Minutes Spent Total Time Spent with Patient: Total time spent is greater than 50% in coordination of care (as documented) at patient's floor/unit and/or counseling patient: Coding Level of Care Code 86588 Subseq Hosp Care Lvl 3 Diagnoses Acute respiratory failure with hypoxia J96.01 Pneumonia due to COVID-19 virus U07.1; J12.89 COPD exacerbation J44.1 Diabetes mellitus type 2, uncontrolled E11.65 Glycemic state: with hyperglycemia CKD stage 3 secondary to diabetes E11.22; N18.3 JAGDEEP (obstructive sleep apnea) G47.33 Paroxysmal atrial fibrillation I48.0 Hypertension I10 Hypertension type: essential hypertension Anemia D64.9 [address]ipation [address]59[address] R93.2 Diabetic nephropathy associated with type 2 diabetes mellitus E11.21 Dyslipidemia E78.5 DVT prophylaxis Z29.9 (1) Diabetes mellitus type 2, uncontrolled Glycemic state: with hyperglycemia Qualified Code(s): E11.65 - Type 2 diabetes mellitus with hyperglycemia (2) Hypertension Hypertension type: essential hypertension Qualified Code(s): I10 - Essential (primary) hypertension
[2020-06-27] MEDS ORDERED: bisacodyL 10 MG SUPP PR STA (16:39)
[2020-06-27] MEDS: cefTRIAXone SODIUM 2,000 MG in DEXTROSE 5% 50 ML IV SCH (17:32)
[2020-06-27] MEDS: INSULIN ASPART 100 UNITS/ML VIAL SC SCH ×2 (18:57→20:34)
[2020-06-27] MEDS: SIMVASTATIN 40 MG TAB PO SCH (20:38)
[2020-06-27] MEDS: TRAVOPROST Z 0.004% OPH SOLN 2.5 ML BTL OPL SCH (20:39)
[2020-06-28] MEDS: ALBUTEROL HFA 8 GM INHALER INH SCH ×6 (02:28→22:33)
[2020-06-28] MEDS: DOXYCYCLINE HYCLATE 100 MG in DEXTROSE 5% 100 ML IV SCH ×2 (04:46→18:08)
[2020-06-28 07:11] LABS: Basophils # (auto) 0.01 K/uL (0-0.2); Basophils % (auto) 0.1 %; Eosinophils # (auto) 0.07 K/uL (0-0.5); Eosinophils % (auto) 0.5 %; Hematocrit (blood only) 27.4 % (42-52); Hemoglobin 8.3 g/dL (14.0-18.0); Immature Granulocytes # (auto) 0.09 K/uL (0.00-0.02); Immature Granulocytes % (auto) 0.7 %; Lymphocytes # (auto) 1.82 K/uL (1.2-3.4); Lymphocytes % (auto) 13.5 %; Mean Corpuscular Hemoglobin 26.9 pg (25-34); Mean Corpuscular Hgb Conc 30.3 g/dL (32-36); Mean Platelet Volume 11.2 fL (7.4-10.4); Monocytes # (auto) 1.45 K/uL (0.11-0.59); Monocytes % (auto) 10.7 %; Neutrophils # (auto) 10.07 K/uL (1.4-6.5); Neutrophils % (auto) 74.5 %; Nucleated RBC # (auto) 0.07 K/uL (0-0); Nucleated RBC % (auto) 0.5 %; Platelet Count 335 K/uL (130-400); RDW Coefficient of Variation 16.1 % (11.5-14.5); RDW Standard Deviation 51.9 fL (36.4-46.3); Red Blood Count 3.08 M/uL (4.7-6.1); White Blood Count 13.51 K/uL (4.8-10.8)
[2020-06-28 07:50] LABS: Albumin Level 2.2 gm/dl (3.4-5.0); BUN Creatinine Ratio 31.3 (10-20); Creatinine Clr Calc Pharmacy 71.1 ml/min; Est GFR (Non-African American) 64.7; Potassium 4.5 mmol/L (3.5-5.1)
[2020-06-28 07:53] LABS: Albumin Globulin Ratio 0.5 (0.9-2); Bilirubin,Total 0.3 mg/dl (0.2-1); Globulin 4.5 gm/dl (2.5-4.0); Total Protein 6.7 gm/dl (6.4-8.2)
[2020-06-28] MEDS: POLYETHYLENE (MIRALAX) 17 GM PACK PO SCH (08:32)
[2020-06-28] MEDS: dexAMETHasone 6 MG in SYRINGE 0 ML IV SCH (08:32)
[2020-06-28] MEDS: SENNA 8.6 MG TAB PO SCH (08:32)
[2020-06-28] MEDS: CHOLECALCIFEROL 1,000 UNITS 25 MCG TAB PO SCH (08:33)
[2020-06-28] MEDS: DOCUSATE SODIUM 100 MG CAP PO SCH ×2 (08:33→21:14)
[2020-06-28] MEDS: LOSARTAN POTASSIUM 50 MG TAB PO SCH (08:33)
[2020-06-28] MEDS: APIXABAN 5 MG TABLET PO SCH ×2 (08:33→21:13)
[2020-06-28] MEDS: guaiFENesin 600 MG TABCR PO SCH ×2 (08:33→21:13)
[2020-06-28] MEDS: METOPROLOL SUCC 50MG EXT REL TAB PO SCH ×2 (08:33→21:14)
[2020-06-28] MEDS: FLUTICASONE/VILANTEROL 100/25MCG 14 PUFFS/INHALER INH SCH (08:34)
[2020-06-28] MEDS: INSULIN ASPART 100 UNITS/ML VIAL SC SCH ×4 (08:35→21:23)
[2020-06-28] MEDS: INSULIN HUMAN NPH SC SCH (08:38)
[2020-06-28] MEDS ORDERED: INSULIN GLARGINE SOLOSTAR 100 UNITS/ML 3 ML PEN SQ SCH (09:00)
[2020-06-28] MEDS: GABAPENTIN 100 MG CAP PO SCH ×2 (12:38→21:14)
--- NOTE | 2020-06-28 14:03 | Pharmacy Report ---
Pharmacy Glycemic Short Note 2 - Date of Service June 28, 2020 - Glycemic Short BSG Results (Last 24 hours): 06/27/20 06/27/20 06/28/20 16:51 20:04 06:15 Glucose 68 L POC Glucose 168 H 210 H 06/28/20 06/28/20 06/28/20 07:11 08:01 11:27 Glucose POC Glucose 85 81 151 H OUTPATIENT ANTIDIABETIC REGIMEN: * NOVOLOG 25 units TID, Lantus 40 units QAM, Metformin BID * A1c 6.6% 01/01/20 ASSESSMENT: 06/28 * Patient received 166 units of insulin yesterday, 81 units of basal * Fasting has been below goal range, therefore loosening lantus, will change scale for tomorrow AM * Prandial BSGs improving but will still titrate up on NPH today 06/26 * Mr. Olson is a 80 yo type 2 diabetic admitted with COVID-19 infection, currently being treated with dexamethasone 6 mg daily- patient's BSGs have increased with steroid use * BSG @ lunch 414 mg/dL- patient being treated with 10 units of IV insulin, yesterday lunch BSG 331/322 corrected to 132 at dinner with correction factor of 8, CR of 4. Would hesitate to use tight ratio for today's BSG since he is receiving 10 units IV, so will adjust correction factor to 10 for lunch and possibly tighten again with dinner. Will tighten carb ratio. * Will initiate NPH insulin tomorrow AM to help cover the dexamethasone, will start with 0.4 units/kg of adjusted body weight PLAN FOR INPATIENT GLYCEMIC CONTROL: * NPH for steroid induced hyperglycemia * 42 units qAM * Basal insulin * Lantus 35 units SQ qAM, scale for tomorrow 25 units for BSG < 100 mg/dL, 35 units for BSG >100 mg/dL * Bolus insulin * NovoLog per scale ACHS or Q6hrs while NPO * Goal Range: Low 110 mg/dL - High 140 mg/dL * Correction Factor: 8 mg/dL/unit * Nutritional / Prandial insulin per carb ratio of 1 unit per 2.5 grams CHO consumed PLAN FOR DISCHARGE: * tbd
--- NOTE | 2020-06-28 16:37 | Hospitalist Progress Note ---
Date of Service June 28, 2020 Assessment & Plan (1) Acute respiratory failure with hypoxia: 2nd to COVID-19 pneumonia, COPD exacerbation, and suspected superimposed bacterial process of the lungs given his elevated procalcitonin level. Was on BIPAP in ER and is now weaned down to 2 L nasal cannula, much improved VBG checked - CO2 and pH acceptable. Cont IV steroids with dexamethasone, antibiotics, supportive care -Continue flutter valve and scheduled albuterol as well as Breo Ellipta -Continue mobilization-getting out of bed to chair (2) Pneumonia due to COVID-19 virus: Initial diagnosis on 06/11/20. CTA chest with extensive b/l infiltrates. Procalcitonin elevated suggestive of possible superimposed bacterial pneumonia. This is now trending downward Dimer significantly elevated on admission at 6000 and now trending downward No PEs fortunately. Although he was 10+ days since symptom onset at the time of admission, he was doing worse overall especially from respiratory standpoint. Thus, he received convalescent plasma on 06/25 -Continue IV Decadron as above for hypoxia and COPD exacerbation-last dose will be on 07/03 -Likely very limited utility from remdesivir at this point in time; thus deferred. -continue CAP treatment with rocephin with doxycycline x7-day course-last day would be 06/30 -No blood cultures drawn and has been afebrile except for a very low-grade fever of 37.7 upon arrival -Follow CBC, CMP in the morning (3) COPD exacerbation: 2nd to COVID-19 infection. Much improved Continue IV decadron. Continue bronchodilators q4h scheduled. Continue flutter valve/incentive spirometry. Continue Mucinex 1200mg BID. Continue usual home inhalers. Continue nebs prn. -Continue to wean off oxygen as able to (4) Diabetes mellitus type 2, uncontrolled: Is on high doses of basal-bolus insulin at home. With significant hyperglycemia here secondary to corticosteroids in the setting of acute illness-now much improved and in fact had hypoglycemia this morning a1c December 2019 was 6.6%. Continue insulin as per pharmacy protocol (5) CKD stage 3 secondary to diabetes: baseline Cr about 1.2 Creatinine was 1.4 on admission 1 L of normal saline gentle fluids were given overnight and creatinine now is back to below baseline at 1.09 and stable -Avoid nephrotoxins -renally dose meds when appropriate -follow BMP -Continue losartan (6) JAGDEEP (obstructive sleep apnea): is not treated with CPAP/BIPAP or O2 at home (7) Paroxysmal atrial fibrillation: noted. remained in NSR on telemetry and has since been discontinued from telemetry cont metoprolol succinate 50mg BID. cont apixaban BID. (8) Hypertension: Blood pressures are controlled Continue home metoprolol, losartan (9) Anemia: presenting Hb in the 9s and decreased slightly with IV fluid hydration Hemoglobin 8.3 today and stable for several days [facility] December 2018 MCV is microcytic in the low 80s takes Fe at home and patient reports he has been anemic his whole life and that he gets nosebleeds if his hemoglobin level is pushed to more than 12 with iron replacement He had an EGD he believes about 10 years ago but had a capsule endoscopy he thinks about 5 years ago and 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 Will need further follow-up as an outpatient with GI (12) Diabetic nephropathy associated with type 2 diabetes mellitus: Continue home gabapentin (13) Dyslipidemia: Continue simvastatin CPK noted to be normal (14) DVT prophylaxis: eliquis 5mg BID Disposition-improving, but continued stay-medical/surgical floor, possible discharge home in the next 1 to 2 days PT/OT consultations placed for tomorrow Full code Admission and Anticipated Discharge Date Admission Date: June 24, 2020 Subjective Patient feeling much better today. He had a bowel movement finally yesterday and has no further abdominal distention. Denies chest pain or shortness of breath and he is weaned down to 2 L nasal cannula today. He did feel dizzy earlier today when his blood sugar was in the 60s but that improved after his blood sugar came back up. He is eating well. Review of Systems Review of Systems: All systems reviewed & are unremarkable except as noted in HPI & below Physical Exam Constitutional: WD/WN, vitals as above + obese Eyes: + anicteric sclerae Neck: trachea midline, no thyromegaly Respiratory: normal respiratory effort Auscultation: + crackles (Bilateral lower lung ng, improved from yesterday); no rhonchi and no wheezes Cardiovascular: RRR, no murmur, no edema Chest (Breasts): Chest: normal inspection of chest Gastrointestinal (Abdomen): normal bowel sounds, soft, nontender, no h epatosplenomegaly Musculoskeletal: Extremities: extremities normal to inspection; no cyanosis and no clubbing Skin: no rashes, warm and dry Neurologic: moves all extremities and awake; no focal motor deficits Psychiatric: A+Ox3, euthymic affect Lymphatic: no lymphedema Results & Data Results & Data ([facility]) Vital Signs (Past 12 Hours) Vital Signs Temp Pulse Pulse Resp BP Pulse Ox 06/28/20 15:33 37.2 C 71 20 117/59 L 95 06/28/20 11:11 75 20 91 06/28/20 11:07 36.6 C 72 18 125/63 92 06/28/20 07:37 68 20 99 06/28/20 07:12 36.5 C 71 20 147/62 H 94 Laboratory Results 06/28/20 06/28/20 06/28/20 Range/Units 16:21 11:27 08:01 WBC (4.8-10.8) K/uL RBC (4.7-6.1) M/uL Hgb (14.0-18.0) g/dL Hct (42-52) % MCV (80-100) fL MCH (25-34) pg MCHC (32-36) g/dL RDW Std Deviation (36.4-46.3) fL RDW Coeff of Pierce (11.5-14.5) % Plt Count (130-400) K/uL MPV (7.4-10.4) fL Immature Gran % (Auto) % Neut % (Auto) % Lymph % (Auto) % Harvey % (Auto) % Eos % (Auto) % Baso % (Auto) % Neut # (Auto) (1.4-6.5) K/uL Lymph # (Auto) (1.2-3.4) K/uL Harvey # (Auto) (0.11-0.59) K/uL Eos # (Auto) (0-0.5) K/uL Baso # (Auto) (0-0.2) K/uL Immature Gran # (Auto) (0.00-0.02) K/uL Absolute Nucleated RBC (0-0) K/uL Nucleated RBC % (auto) % Sodium (136-145) mmol/L Potassium (3.5-5.1) mmol/L Chloride (98-107) mmol/L Carbon Dioxide (21-32) mmol/L Anion Gap (3-11) BUN (7-18) mg/dl Creatinine (0.6-1.4) mg/dl Est Cr Clr Drug Dosing ml/min Est GFR ( Amer) Est GFR (Non-Af Amer) BUN/Creatinine Ratio (10-20) Glucose (70-99) mg/dl POC Glucose 140 H 151 H 81 (70-99) mg/dl Calcium (8.5-10.1) mg/dl Total Bilirubin (0.2-1) mg/dl AST (15-37) U/L ALT (12-78) U/L Alkaline Phosphatase (45-117) U/L Total Protein (6.4-8.2) gm/dl Albumin (3.4-5.0) gm/dl Globulin (2.5-4.0) gm/dl Albumin/Globulin Ratio (0.9-2) 06/28/20 06/28/20 06/28/20 Range/Units 07:11 06:15 06:15 WBC 13.51 H (4.8-10.8) K/uL RBC 3.08 L (4.7-6.1) M/uL Hgb 8.3 L (14.0-18.0) g/dL Hct 27.4 L (42-52) % MCV 89.0 (80-100) fL MCH 26.9 (25-34) pg MCHC 30.3 L (32-36) g/dL RDW Std Deviation 51.9 H (36.4-46.3) fL RDW Coeff of Pierce 16.1 H (11.5-14.5) % Plt Count 335 (130-400) K/uL MPV 11.2 H (7.4-10.4) fL Immature Gran % (Auto) 0.7 % Neut % (Auto) 74.5 % Lymph % (Auto) 13.5 % Harvey % (Auto) 10.7 % Eos % (Auto) 0.5 % Baso % (Auto) 0.1 % Neut # (Auto) 10.07 H (1.4-6.5) K/uL Lymph # (Auto) 1.82 (1.2-3.4) K/uL Harvey # (Auto) 1.45 H (0.11-0.59) K/uL Eos # (Auto) 0.07 (0-0.5) K/uL Baso # (Auto) 0.01 (0-0.2) K/uL Immature Gran # (Auto) 0.09 H (0.00-0.02) K/uL Absolute Nucleated RBC 0.07 H (0-0) K/uL Nucleated RBC % (auto) 0.5 % Sodium 142 (136-145) mmol/L Potassium 4.5 (3.5-5.1) mmol/L Chloride 111 H (98-107) mmol/L Carbon Dioxide 24 (21-32) mmol/L Anion Gap 7.0 (3-11) BUN 34 H (7-18) mg/dl Creatinine 1.09 (0.6-1.4) mg/dl Est Cr Clr Drug Dosing 71.1 ml/min Est GFR ( Amer) 75.0 Est GFR (Non-Af Amer) 64.7 BUN/Creatinine Ratio 31.3 H (10-20) Glucose 68 L (70-99) mg/dl POC Glucose 85 (70-99) mg/dl Calcium 8.0 L (8.5-10.1) mg/dl Total Bilirubin 0.3 (0.2-1) mg/dl AST 33 (15-37) U/L ALT 41 (12-78) U/L Alkaline Phosphatase 94 (45-117) U/L Total Protein 6.7 (6.4-8.2) gm/dl Albumin 2.2 L (3.4-5.0) gm/dl Globulin 4.5 H (2.5-4.0) gm/dl Albumin/Globulin Ratio 0.5 L (0.9-2) 06/27/20 Range/Units 20:04 WBC (4.8-10.8) K/uL RBC (4.7-6.1) M/uL Hgb (14.0-18.0) g/dL Hct (42-52) % MCV (80-100) fL MCH (25-34) pg MCHC (32-36) g/dL RDW Std Deviation (36.4-46.3) fL RDW Coeff of Pierce (11.5-14.5) % Plt Count (130-400) K/uL MPV (7.4-10.4) fL Immature Gran % (Auto) % Neut % (Auto) % Lymph % (Auto) % Harvey % (Auto) % Eos % (Auto) % Baso % (Auto) % Neut # (Auto) (1.4-6.5) K/uL Lymph # (Auto) (1.2-3.4) K/uL Harvey # (Auto) (0.11-0.59) K/uL Eos # (Auto) (0-0.5) K/uL Baso # (Auto) (0-0.2) K/uL Immature Gran # (Auto) (0.00-0.02) K/uL Absolute Nucleated RBC (0-0) K/uL Nucleated RBC % (auto) % Sodium (136-145) mmol/L Potassium (3.5-5.1) mmol/L Chloride (98-107) mmol/L Carbon Dioxide (21-32) mmol/L Anion Gap (3-11) BUN (7-18) mg/dl Creatinine (0.6-1.4) mg/dl Est Cr Clr Drug Dosing ml/min Est GFR ( Amer) Est GFR (Non-Af Amer) BUN/Creatinine Ratio (10-20) Glucose (70-99) mg/dl POC Glucose 210 H (70-99) mg/dl Calcium (8.5-10.1) mg/dl Total Bilirubin (0.2-1) mg/dl AST (15-37) U/L ALT (12-78) U/L Alkaline Phosphatase (45-117) U/L Total Protein (6.4-8.2) gm/dl Albumin (3.4-5.0) gm/dl Globulin (2.5-4.0) gm/dl Albumin/Globulin Ratio (0.9-2) Sputum culture-moderate normal luis PG Care Time/CCT Total # of Minutes Spent Total Time Spent with Patient: Total time spent is greater than 50% in coordination of care (as documented) at patient's floor/unit and/or counseling patient: Coding Level of Care Code 77208 Subseq Hosp Care Lvl 3 Diagnoses Acute respiratory failure with hypoxia J96.01 Pneumonia due to COVID-19 virus U07.1; J12.89 COPD exacerbation J44.1 Diabetes mellitus type 2, uncontrolled E11.65 Glycemic state: with hyperglycemia CKD stage 3 secondary to diabetes E11.22; N18.3 JAGDEEP (obstructive sleep apnea) G47.33 Paroxysmal atrial fibrillation I48.0 Hypertension I10 Hypertension type: essential hypertension Anemia D64.9 [address]59[address] R93.2 Diabetic nephropathy associated with type 2 diabetes mellitus E11.21 Dyslipidemia E78.5 DVT prophylaxis Z29.9 (1) Diabetes mellitus type 2, uncontrolled Glycemic state: with hyperglycemia Qualified Code(s): E11.65 - Type 2 diabetes mellitus with hyperglycemia (2) Hypertension Hypertension type: essential hypertension Qualified Code(s): I10 - Essential (primary) hypertension
[2020-06-28] MEDS: cefTRIAXone SODIUM 2,000 MG in DEXTROSE 5% 50 ML IV SCH (18:08)
[2020-06-28] MEDS ORDERED: bisacodyL 10 MG SUPP PR PRN (19:39)
[2020-06-28] MEDS ORDERED: SODIUM CHLORIDE 0.65% NA SOLN 45 ML (OCEAN) ONE (19:44)
[2020-06-28] MEDS: SIMVASTATIN 40 MG TAB PO SCH (21:15)
[2020-06-28] MEDS: TRAVOPROST Z 0.004% OPH SOLN 2.5 ML BTL OPL SCH (21:15)
[2020-06-29] MEDS: ALBUTEROL HFA 8 GM INHALER INH SCH ×4 (01:47→23:00)
[2020-06-29 04:36] LABS: Basophils # (auto) 0.02 K/uL (0-0.2); Basophils % (auto) 0.1 %; Eosinophils # (auto) 0.11 K/uL (0-0.5); Eosinophils % (auto) 0.7 %; Hematocrit (blood only) 29.5 % (42-52); Hemoglobin 9.2 g/dL (14.0-18.0); Immature Granulocytes % (auto) 0.7 %; Lymphocytes # (auto) 2.05 K/uL (1.2-3.4); Lymphocytes % (auto) 13.5 %; Mean Corpuscular Hemoglobin 27.6 pg (25-34); Mean Corpuscular Hgb Conc 31.2 g/dL (32-36); Mean Corpuscular Volume 88.6 fL (80-100); Mean Platelet Volume 10.5 fL (7.4-10.4); Monocytes # (auto) 1.44 K/uL (0.11-0.59); Monocytes % (auto) 9.5 %; Neutrophils # (auto) 11.48 K/uL (1.4-6.5); Neutrophils % (auto) 75.5 %; Nucleated RBC # (auto) 0.08 K/uL (0-0); Nucleated RBC % (auto) 0.6 %; Platelet Count 353 K/uL (130-400); Red Blood Count 3.33 M/uL (4.7-6.1)
[2020-06-29] MEDS: DOXYCYCLINE HYCLATE 100 MG in DEXTROSE 5% 100 ML IV SCH ×2 (04:48→17:30)
[2020-06-29 04:56] LABS: Albumin Globulin Ratio 0.5 (0.9-2); Albumin Level 2.4 gm/dl (3.4-5.0); BUN Creatinine Ratio 28.6 (10-20); Bilirubin,Total 0.5 mg/dl (0.2-1); Calcium 9.3 mg/dl (8.5-10.1); Creatinine Clr Calc Pharmacy 66.2 ml/min; Est GFR (African American) 68.8; Est GFR (Non-African American) 59.4; Globulin 4.7 gm/dl (2.5-4.0); Potassium 4.5 mmol/L (3.5-5.1); Total Protein 7.1 gm/dl (6.4-8.2)
[2020-06-29] MEDS ORDERED: INSULIN GLARGINE SOLOSTAR 100 UNITS/ML 3 ML PEN SQ SCH (09:00)
[2020-06-29] MEDS: cefTRIAXone SODIUM 2,000 MG in DEXTROSE 5% 50 ML IV SCH (17:30)
[2020-06-29] MEDS: INSULIN ASPART 100 UNITS/ML VIAL SC SCH ×3 (18:19→21:53)
[2020-06-29] MEDS: DOCUSATE SODIUM 100 MG CAP PO SCH ×2 (18:21→21:46)
[2020-06-29] MEDS: LOSARTAN POTASSIUM 50 MG TAB PO SCH (18:21)
[2020-06-29] MEDS: FLUTICASONE/VILANTEROL 100/25MCG 14 PUFFS/INHALER INH SCH (18:21)
[2020-06-29] MEDS: INSULIN HUMAN NPH SC SCH (18:21)
[2020-06-29] MEDS: FERROUS GLUCONATE 324 MG TAB PO SCH (18:21)
[2020-06-29] MEDS: dexAMETHasone 6 MG in SYRINGE 0 ML IV SCH (18:21)
[2020-06-29] MEDS: APIXABAN 5 MG TABLET PO SCH ×2 (18:21→21:46)
[2020-06-29] MEDS: POLYETHYLENE (MIRALAX) 17 GM PACK PO SCH (18:22)
[2020-06-29] MEDS: guaiFENesin 600 MG TABCR PO SCH ×2 (18:23→21:44)
[2020-06-29] MEDS: METOPROLOL SUCC 50MG EXT REL TAB PO SCH ×2 (18:23→21:46)
[2020-06-29] MEDS: CHOLECALCIFEROL 1,000 UNITS 25 MCG TAB PO SCH (18:23)
[2020-06-29] MEDS: SENNA 8.6 MG TAB PO SCH (18:23)
[2020-06-29] MEDS: GABAPENTIN 100 MG CAP PO SCH ×2 (18:23→21:44)
--- NOTE | 2020-06-29 18:29 | Hospitalist Progress Note ---
Date of Service June 29, 2020 Assessment & Plan (1) Acute respiratory failure with hypoxia: 2nd to COVID-19 pneumonia, COPD exacerbation, and suspected superimposed bacterial process of the lungs given his elevated procalcitonin level. Was on BIPAP in ER and is now weaned down to 2-3 L nasal cannula, much improved VBG checked - CO2 and pH acceptable. Cont IV steroids with dexamethasone, antibiotics, supportive care -Continue flutter valve and scheduled albuterol as well as Breo Ellipta -Continue mobilization-getting out of bed to chair (2) Pneumonia due to COVID-19 virus: Initial diagnosis on 06/11/20. CTA chest with extensive b/l infiltrates. Procalcitonin elevated suggestive of possible superimposed bacterial pneumonia. This is now trending downward Dimer significantly elevated on admission at 6000 and now trending downward No PEs fortunately. Although he was 10+ days since symptom onset at the time of admission, he was doing worse overall especially from respiratory standpoint. Thus, he received convalescent plasma on 06/25 -Continue IV Decadron as above for hypoxia and COPD exacerbation-last dose will be on 07/03 -Likely very limited utility from remdesivir at this point in time; thus deferred. -continue CAP treatment with rocephin with doxycycline x7-day course-last day would be 06/30 -No blood cultures drawn and has been afebrile except for a very low-grade fever of 37.7 upon arrival -Follow CBC, CMP in the morning (3) COPD exacerbation: 2nd to COVID-19 infection. Much improved Continue IV decadron. Continue bronchodilators q4h scheduled. Continue flutter valve/incentive spirometry. Continue Mucinex 1200mg BID. Continue usual home inhalers. Continue nebs prn. -Continue to wean off oxygen as able to, but will need home O2 most likely (4) Diabetes mellitus type 2, uncontrolled: Is on high doses of basal-bolus insulin at home. With significant hyperglycemia here secondary to corticosteroids in the setting of acute illness-now much improved and in fact had relative hypoglycemia again this morning that was symptomatic a1c December 2019 was 6.6%. Continue insulin as per pharmacy protocol-reducing to 30% today (5) CKD stage 3 secondary to diabetes: baseline Cr about 1.2 Creatinine was 1.4 on admission 1 L of normal saline gentle fluids were given overnight and creatinine now is back to below baseline at 1.09 and stable -Avoid nephrotoxins -renally dose meds when appropriate -follow BMP -Continue losartan (6) JAGDEEP (obstructive sleep apnea): is not treated with CPAP/BIPAP or O2 at home (7) Paroxysmal atrial fibrillation: noted. remained in NSR on telemetry and has since been discontinued from telemetry cont metoprolol succinate 50mg BID. cont apixaban BID. (8) Hypertension: Blood pressures are controlled Continue home metoprolol, losartan (9) Anemia: presenting Hb in the 9s and decreased slightly with IV fluid hydration Hemoglobin 8.3 today and stable for several days [facility] Hb [facility] December 2018 MCV is microcytic in the low 80s takes Fe at home and patient reports he has been anemic his whole life and that he gets nosebleeds if his hemoglobin level is pushed to more than 12 with iron replacement He had an EGD he believes about 10 years ago but had a capsule endoscopy he thinks about 5 years ago and 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 Will need further follow-up as an outpatient with GI (12) Diabetic nephropathy associated with type 2 diabetes mellitus: Continue home gabapentin (13) Dyslipidemia: Continue simvastatin CPK noted to be normal (14) DVT prophylaxis: eliquis 5mg BID Disposition-improving, but continued stay-medical/surgical floor, possible discharge home possibly tomorrow Will need a two-step walk test prior to discharge PT/OT consultations placed-awaiting evaluation Full code Admission and Anticipated Discharge Date Admission Date: June 24, 2020 Subjective Patient reports feeling shaky and weak this morning when his blood sugar was low for him at 85. He now feels better as his sugar is 200 for lunchtime. He feels his breathing is improved and remains on 3 L nasal cannula. Denies chest pain or abdominal pain, no nausea. He has not been seen by physical therapy yet today. He feels he may be ready to go home tomorrow. Review of Systems Review of Systems: All systems reviewed & are unremarkable except as noted in HPI & below Physical Exam Constitutional: WD/WN, vitals as above + obese Eyes: + anicteric sclerae Neck: trachea midline, no thyromegaly Respiratory: normal respiratory effort Auscultation: + crackles (Bilateral lower lung ng, improved from yesterday); no rhonchi and no wheezes Cardiovascular: RRR, no murmur, no edema Chest (Breasts): Chest: normal inspection of chest Gastrointestinal (Abdomen): normal bowel sounds, soft, nontender, no hepatosplenomegaly Musculoskeletal: Extremities: extremities normal to inspection; no cyanosis and no clubbing Skin: no rashes, warm and dry Neurologic: moves all extremities and awake; no focal motor deficits Psychiatric: A+Ox3, euthymic affect Lymphatic: no lymphedema Results & Data Results & Data ([facility]) Laboratory Results 06/29/20 06/29/20 06/29/20 Range/Units 16:56 16:22 04:10 WBC (4.8-10.8) K/uL RBC (4.7-6.1) M/uL Hgb (14.0-18.0) g/dL Hct (42-52) % MCV (80-100) fL MCH (25-34) pg MCHC (32-36) g/dL RDW Std Deviation (36.4-46.3) fL RDW Coeff of Pierce (11.5-14.5) % Plt Count (130-400) K/uL MPV (7.4-10.4) fL Immature Gran % (Auto) % Neut % (Auto) % Lymph % (Auto) % Phelps % (Auto) % Eos % (Auto) % Baso % (Auto) % Neut # (Auto) (1.4-6.5) K/uL Lymph # (Auto) (1.2-3.4) K/uL Phelps # (Auto) (0.11-0.59) K/uL Eos # (Auto) (0-0.5) K/uL Baso # (Auto) (0-0.2) K/uL Immature Gran # (Auto) (0.00-0.02) K/uL Absolute Nucleated RBC (0-0) K/uL Nucleated RBC % (auto) % Sodium 141 (136-145) mmol/L Potassium 4.5 (3.5-5.1) mmol/L Chloride 111 H (98-107) mmol/L Carbon Dioxide 24 (21-32) mmol/L Anion Gap 6.0 (3-11) BUN 34 H (7-18) mg/dl Creatinine 1.17 (0.6-1.4) mg/dl Est Cr Clr Drug Dosing 66.2 ml/min Est GFR ( Amer) 68.8 Est GFR (Non-Af Amer) 59.4 BUN/Creatinine Ratio 28.6 H (10-20) Glucose 85 (70-99) mg/dl POC Glucose 126 H 97 (70-99) mg/dl Calcium 9.3 D (8.5-10.1) mg/dl Total Bilirubin 0.5 (0.2-1) mg/dl AST 33 (15-37) U/L ALT 43 (12-78) U/L Alkaline Phosphatase 95 (45-117) U/L Total Protein 7.1 (6.4-8.2) gm/dl Albumin 2.4 L (3.4-5.0) gm/dl Globulin 4.7 H (2.5-4.0) gm/dl Albumin/Globulin Ratio 0.5 L (0.9-2) 06/29/20 06/28/20 Range/Units 04:10 20:08 WBC 15.20 H (4.8-10.8) K/uL RBC 3.33 L (4.7-6.1) M/uL Hgb 9.2 L (14.0-18.0) g/dL Hct 29.5 L (42-52) % MCV 88.6 (80-100) fL MCH 27.6 (25-34) pg MCHC 31.2 L (32-36) g/dL RDW Std Deviation 51.0 H (36.4-46.3) fL RDW Coeff of Pierce 16.0 H (11.5-14.5) % Plt Count 353 (130-400) K/uL MPV 10.5 H (7.4-10.4) fL Immature Gran % (Auto) 0.7 % Neut % (Auto) 75.5 % Lymph % (Auto) 13.5 % Phelps % (Auto) 9.5 % Eos % (Auto) 0.7 % Baso % (Auto) 0.1 % Neut # (Auto) 11.48 H (1.4-6.5) K/uL Lymph # (Auto) 2.05 (1.2-3.4) K/uL Phelps # (Auto) 1.44 H (0.11-0.59) K/uL Eos # (Auto) 0.11 (0-0.5) K/uL Baso # (Auto) 0.02 (0-0.2) K/uL Immature Gran # (Auto) 0.10 H (0.00-0.02) K/uL Absolute Nucleated RBC 0.08 H (0-0) K/uL Nucleated RBC % (auto) 0.6 % Sodium (136-145) mmol/L Potassium (3.5-5.1) mmol/L Chloride (98-107) mmol/L Carbon Dioxide (21-32) mmol/L Anion Gap (3-11) BUN (7-18) mg/dl Creatinine (0.6-1.4) mg/dl Est Cr Clr Drug Dosing ml/min Est GFR ( Amer) Est GFR (Non-Af Amer) BUN/Creatinine Ratio (10-20) Glucose (70-99) mg/dl POC Glucose 137 H (70-99) mg/dl Calcium (8.5-10.1) mg/dl Total Bilirubin (0.2-1) mg/dl AST (15-37) U/L ALT (12-78) U/L Alkaline Phosphatase (45-117) U/L Total Protein (6.4-8.2) gm/dl Albumin (3.4-5.0) gm/dl Globulin (2.5-4.0) gm/dl Albumin/Globulin Ratio (0.9-2) PG Care Time/CCT Total # of Minutes Spent Total Time Spent with Patient: Total time spent is greater than 50% in coordination of care (as documented) at patient's floor/unit and/or counseling patient: Coding Level of Care Code 51049 Subseq Hosp Care Lvl 3 Diagnoses Acute respiratory failure with hypoxia J96.01 Pneumonia due to COVID-19 virus U07.1; J12.89 COPD exacerbation J44.1 Diabetes mellitus type 2, uncontrolled E11.65 Glycemic state: with hyperglycemia CKD stage 3 secondary to diabetes E11.22; N18.3 JAGDEEP (obstructive sleep apnea) G47.33 Paroxysmal atrial fibrillation I48.0 Hypertension I10 Hypertension type: essential hypertension Anemia D64.9 [address]ipation [address]59[address] R93.2 Diabetic nephropathy associated with type 2 diabetes mellitus E11.21 Dyslipidemia E78.5 DVT prophylaxis Z29.9 (1) Diabetes mellitus type 2, uncontrolled Glycemic state: with hyperglycemia Qualified Code(s): E11.65 - Type 2 diabetes mellitus with hyperglycemia (2) Hypertension Hypertension type: essential hypertension Qualified Code(s): I10 - Essential (primary) hypertension
[2020-06-29] MEDS: SIMVASTATIN 40 MG TAB PO SCH (21:45)
[2020-06-29] MEDS: TRAVOPROST Z 0.004% OPH SOLN 2.5 ML BTL OPL SCH (21:47)
[2020-06-30] MEDS: ALBUTEROL HFA 8 GM INHALER INH SCH ×3 (02:07→11:28)
[2020-06-30] MEDS: DOXYCYCLINE HYCLATE 100 MG in DEXTROSE 5% 100 ML IV SCH (05:55)
[2020-06-30 07:28] LABS: Basophils # (auto) 0.02 K/uL (0-0.2); Basophils % (auto) 0.1 %; Eosinophils # (auto) 0.16 K/uL (0-0.5); Eosinophils % (auto) 1.1 %; Hematocrit (blood only) 29.6 % (42-52); Hemoglobin 9.1 g/dL (14.0-18.0); Immature Granulocytes # (auto) 0.17 K/uL (0.00-0.02); Immature Granulocytes % (auto) 1.2 %; Lymphocytes # (auto) 1.82 K/uL (1.2-3.4); Lymphocytes % (auto) 12.3 %; Mean Corpuscular Hemoglobin 27.6 pg (25-34); Mean Corpuscular Hgb Conc 30.7 g/dL (32-36); Mean Corpuscular Volume 89.7 fL (80-100); Mean Platelet Volume 10.3 fL (7.4-10.4); Monocytes # (auto) 1.53 K/uL (0.11-0.59); Monocytes % (auto) 10.4 %; Neutrophils # (auto) 11.06 K/uL (1.4-6.5); Neutrophils % (auto) 74.9 %; Platelet Count 363 K/uL (130-400); RDW Coefficient of Variation 17.1 % (11.5-14.5); RDW Standard Deviation 52.8 fL (36.4-46.3); White Blood Count 14.76 K/uL (4.8-10.8)
[2020-06-30 08:06] LABS: BUN Creatinine Ratio 29.7 (10-20); Creatinine Clr Calc Pharmacy 67.9 ml/min; Est GFR (Non-African American) 61.3; Potassium 4.7 mmol/L (3.5-5.1)
[2020-06-30] MEDS ORDERED: INSULIN GLARGINE SOLOSTAR 100 UNITS/ML 3 ML PEN SQ SCH (09:00)
[2020-06-30] MEDS: INSULIN ASPART 100 UNITS/ML VIAL SC SCH ×2 (09:25→12:20)
[2020-06-30] MEDS: INSULIN HUMAN NPH SC SCH (09:31)
[2020-06-30] MEDS: FLUTICASONE/VILANTEROL 100/25MCG 14 PUFFS/INHALER INH SCH (09:32)
[2020-06-30] MEDS: dexAMETHasone 6 MG in SYRINGE 0 ML IV SCH (09:32)
[2020-06-30] MEDS: DOCUSATE SODIUM 100 MG CAP PO SCH (09:32)
[2020-06-30] MEDS: guaiFENesin 600 MG TABCR PO SCH (09:32)
[2020-06-30] MEDS: SENNA 8.6 MG TAB PO SCH (09:32)
[2020-06-30] MEDS: CHOLECALCIFEROL 1,000 UNITS 25 MCG TAB PO SCH (09:33)
[2020-06-30] MEDS: LOSARTAN POTASSIUM 50 MG TAB PO SCH (09:33)
[2020-06-30] MEDS: METOPROLOL SUCC 50MG EXT REL TAB PO SCH (09:33)
[2020-06-30] MEDS: POLYETHYLENE (MIRALAX) 17 GM PACK PO SCH (09:34)
[2020-06-30] MEDS: APIXABAN 5 MG TABLET PO SCH (09:34)
[2020-06-30] MEDS ORDERED: INSULIN HUMAN REGULAR PER UNIT 10 UNITS in SYRINGE 9.9 ML IV ONE (11:30)
[2020-06-30] MEDS: GABAPENTIN 100 MG CAP PO SCH (12:20)
--- NOTE | 2020-06-30 13:42 | Discharge Summary ---
Date of Service June 30, 2020 Admission HPI Per Admitting Provider 80yo male with COPD, prior heavy tobacco use (quit 1989), T2DM, PAF on eliquis, and HTN who presents with COVID-19 symptoms since ~06/11. On this date he was diagnosed with COVID-19. also sick with COVID-19. During this 10-14 day time span he has had worsening cough, congestion, loss of taste/smell, chest tightness, fevers/chills, and very poor appetite. He has been using his albuterol frequently without relief of chest symptoms. Came to ER today because of worsening dyspnea. He also mentions worsening blood sugars - was 287 this am at home. Upon ER presentation today the patient was hypoxic in the low-mid 80s, tachypneic, and had respiratory distress. Thus, he was placed on BIPAP. During my admission assessment he was resting comfortably on the BIPAP, able to speak in full sentences, and was asking to eat. He stated "I haven't eaten in 4 days.". Principal Diagnosis COVID-19 PNA, Acute respiratory failure with hypoxia Discharge Exam Constitutional WD/WN, vitals as above + obese Eyes + anicteric sclerae Neck trachea midline, no thyromegaly Respiratory normal respiratory effort Auscultation: + crackles (Bilateral lower lung ng, improved from yesterday); no rhonchi and no wheezes Cardiovascular RRR, no murmur, no edema Chest (Breasts) Chest: normal inspection of chest Gastrointestinal (Abdomen) normal bowel sounds, soft, nontender, no hepatosplenomegaly Musculoskeletal Extremities: extremities normal to inspection; no cyanosis and no clubbing Skin no rashes, warm and dry Neurologic moves all extremities and awake; no focal motor deficits Psychiatric A+Ox3, euthymic affect Lymphatic no lymphedema Discharge Data Allergies Allergy/AdvReac Type Severity Reaction Status Date / Time cheese Allergy Severe Hives Verified 06/10/20 17:06 Consultations 06/24/20 11:38 ED Decision to Admit Stat Ordered Studies 06/24/20 11:24 CT abd pelvis IV con only Stat CT angio chest PE protocol Stat CXR Hospital Course (1) Acute respiratory failure with hypoxia: 2nd to COVID-19 pneumonia, COPD exacerbation, and suspected superimposed bacterial process of the lungs given his elevated procalcitonin level. Was on BIPAP in ER and is now weaned down to 2L nasal cannula at rest and with 3LNC with exertion as per 2 step walk test, much improved VBG checked - CO2 and pH acceptable. Received IV steroids with dexamethasone, antibiotics, supportive care-compelte po dex at home -Continue flutter valve and scheduled albuterol as well as Breo Ellipta -Continue mobilization-getting out of bed to chair (2) Pneumonia due to COVID-19 virus: Initial diagnosis on 06/11/20. CTA chest with extensive b/l infiltrates. Procalcitonin elevated suggestive of possible superimposed bacterial pneumonia. This is now trending downward Dimer significantly elevated on admission at 6000 and now trending downward No PEs fortunately. Although he was 10+ days since symptom onset at the time of admission, he was doing worse overall especially from respiratory standpoint. Thus, he received convalescent plasma on 06/25 -received IV Decadron as above for hypoxia and COPD exacerbation-last dose will be on 07/03 -Likely very limited utility from remdesivir at this point in time; thus defer red. -completed CAP treatment with rocephin with doxycycline x7-day course-last day 06/30 -No blood cultures drawn and has been afebrile except for a very low-grade fever of 37.7 upon arrival much improved (3) COPD exacerbation: 2nd to COVID-19 infection. Much improved Continue decadron. Continue bronchodilators Continue flutter valve/incentive spirometry. Continue Mucinex 1200mg BID. Continue usual home inhalers. Continue nebs prn. -Continue to wean off oxygen as able to, but will need home O2 (4) Diabetes mellitus type 2, uncontrolled: Is on high doses of basal-bolus insulin at home. With significant hyperglycemia here secondary to corticosteroids in the setting of acute illness-then had relative hypoglycemia a1c December 2019 was 6.6%. increasing Lantus to 30 units bid x 3 more days while on steroids, then return to usual dosing (5) CKD stage 3 secondary to diabetes: baseline Cr about 1.2 Creatinine was 1.4 on admission 1 L of normal saline gentle fluids were given overnight and creatinine now is back to below baseline at 1.09 and stable -Avoid nephrotoxins -renally dose meds when appropriate -Continue losartan (6) JAGDEEP (obstructive sleep apnea): is not treated with CPAP/BIPAP or O2 at home (7) Paroxysmal atrial fibrillation: noted. remained in NSR on telemetry and has since been discontinued from telemetry cont metoprolol succinate 50mg BID. cont apixaban BID. 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 Will need further follow-up as an outpatient with GI (12) Diabetic nephropathy associated with type 2 diabetes mellitus: Continue home gabapentin (13) Dyslipidemia: Continue simvastatin CPK noted to be normal (14) DVT prophylaxis: eliquis 5mg BID Disposition-improved, stable for dc to home Full code Total Time Total Time Spent Total Time Spent (In Minutes): 35 min Total Time Includes: Examination of the Patient, Discharge Planning and Medication Reconciliation Discharge Plan Discharge Items Patient Disposition: Home - Home Health Services Reason For Visit: ACUTE/CHRONIC HYPOXIC RESP FAILURE,COVID-19 PNEUMO Discharge Diagnosis: COVID-19 Pneumonia, Hypoxia Condition on Discharge: Fair Activity: As commented below Lifting: Gradually increase as tolerated Bathing: No limitations Exercise/Sports: Gradually increase as tolerated Non-emergency contact: Primary Care Provider Call non-emergency contact if: you have any medication questions, your symptoms worsen and you have a fever Follow-up/Referrals: Lin Abraham MD [Primary Care Provider] - (Follow up within 1-[address] BRITT OFFICE WILL CALL WITH A FOLLOW UP TELE-HEALTH APT.) Diet: Carb Consistent or DM2 and Heart Healthy Addtl Attending Provider Instructions: Please finish out 3 more days of the dexamethasone. While you on on the dexamethasone, your blood sugar will continue to be quite high. It is recommended that you take your Basaglar 30 units TWICE DAILY for the next 3 day s, and then return to your usual doses after that. Continue to take stool softeners as needed or gentle over the counter laxatives to keep your bowels moving. You should remain quarantined at home for at least another 7 days. If your symptoms are continuing to improve at that point, you can discontinue your quarantine. You will need to remain on 3L of oxygen at rest and turn it up to 4L with any activity. Your PCP can tell you when it is ok to stop using the oxygen. You should have a repeat chest xray in 3-4 weeks to ensure resolution of your pneumonia. As for your anemia, you were given IV iron x 1 dose here. Your blood count is lower than your usual and you should follow up with your PCP about this as well. You were also noted to have some changes in your liver on CT scan that could be a sign of early scarring or cirrhosis of the liver. You should also follow up with your PCP or a Gastroenterology specialist regarding this in the future. The best thing you can do for your liver is lose weight and eat a low carbohydrate diet. Continue to work on better controlling your diabetes. It was a pleasure taking care of you! Take care, Laina Naylor M.D. Pending Studies at Discharge: No Stand-Alone Forms: My [facility] Medications and DC Order Prescriptions: New docusate sodium 100 mg Capsule 100 mg PO BID Qty: 14 RF: 0 polyethylene glycol 3350 [Miralax] 17 gram Powder In Packet 17 g PO DAILY PRN (Reason: constipation) Qty: 14 RF: 0 guaifenesin [Mucinex] 600 mg Tablet Extended Release 12hr 1,200 mg PO Q12 Qty: 30 RF: 0 dexamethasone 6 mg tablet 6 mg PO DAILY Qty: 3 RF: 0 Continued Eliquis 5 mg tablet 5 mg PO BID Qty: 60 RF: 5 metoprolol succinate 50 mg tablet extended release 24 hr 50 mg PO BID Qty: 180 RF: 0 (DME) OneTouch Ultra Blue Test Strip Strip See Dose Instructions .ROUTE .MEDSUPPLY Qty: 400 RF: 1 losartan 100 mg tablet 100 mg PO QAM Qty: 30 RF: 4 metformin 1,000 mg tablet 1,000 mg PO BID Qty: 60 RF: 5 cholecalciferol (vitamin D3) 25 mcg (1,000 unit) capsule 1,000 units PO DAILY RF: 0 epinephrine 0.3 mg/0.3 mL auto-injector 0.3 mg subcut .INJECT 0.3ML INTRAMU Qty: 1 RF: 0 (DME) lancets [Comic ReplyTouch Delica Lancets] 33 gauge misc See Dose Instructions .ROUTE .MEDSUPPLY Qty: 100 RF: 3 ferrous gluconate 324 mg (38 mg iron) tablet 324 mg PO Q OTHER DAY RF: 0 (DME) pen needle, diabetic [BD Ultra-Fine Lavinia Pen Needle] 32 gauge x 5/32" needle See Dose Instructions .ROUTE .MEDSUPPLY Qty: 200 RF: 5 Symbicort 160-4.5 mcg/actuation HFA aerosol inhaler 2 puff INH BID Qty: 10.2 RF: 0 ipratropium-albuterol 0.5 mg-3 mg(2.5 mg base)/3 mL solution for nebulization 3 ml inhalation Q4H PRN (Reason: COPD) Qty: 540 RF: 5 (DME) nebulizers Misc See Rx Instructions .ROUTE .MEDSUPPLY Qty: 1 RF: 0 albuterol sulfate 90 mcg/actuation HFA aerosol inhaler 2 puff inhalation Q4H PRN (Reason: shortness of breath or wheezing) Qty: 8.5 RF: 5 insulin aspart U-100 [Novolog Flexpen U-100 Insulin] 100 unit/mL (3 mL) insulin pen 25 unit SUBCUT TID RF: 0 travoprost 0.004 % drops 1 drp OPL HS RF: 0 simvastatin 40 mg tablet 40 mg PO HS RF: 0 Discontinued Basaglar KwikPen U-100 Insulin 100 unit/mL (3 mL) insulin pen 40 unit SQ QAM RF: 0 No Action gabapentin 100 mg capsule See Rx Instructions PO .COMPLEX Qty: 180 RF: 0 gabapentin 300 mg capsule 300 mg PO DAILY Qty: 90 RF: 1 Basagljazmyne Gibbs U-100 Insulin 100 unit/mL (3 mL) insulin pen 40 unit SQ DAILY Qty: 15 RF: 5 (DME) blood-glucose meter [OneTouch Ultra2 Meter] Misc See Rx Instructions .ROUTE .MEDSUPPLY Qty: 1 RF: 0 Discharge Orders: Discharge Order (Routine); Ordered 06/30/20 Ordered By: Laina Naylor Admission Data Admit Date/Time: 06/24/20 15:24 Attending Provider: Laina Naylor Admit Provider: Guru Holland Primary Care Provider: Lin Abraham Other Providers: Guru Holland Other Interventions: Discharge Summary Assessment (RN) Last Done: 06/30/20 15:10 Coding Level of Care Code D/C Day Management >30 mins Diagnoses Acute respiratory failure with hypoxia J96.01 Pneumonia due to COVID-19 virus U07.1; J12.89 COPD exacerbation J44.1 Diabetes mellitus type 2, uncontrolled E11.65 Glycemic state: with hyperglycemia CKD stage 3 secondary to diabetes E11.22; N18.3 JAGDEEP (obstructive sleep apnea) G47.33 Paroxysmal atrial fibrillation I48.0 Hypertension I10 Hypertension type: essential hypertension Anemia D64.9 Constipation K59.[address] R93.2 Diabetic nephropathy associated with type 2 diabetes mellitus E11.21 Dyslipidemia E78.5 DVT prophylaxis Z29.9
== END 2020-06-30 16:24 | disposition home health service (06) | DRG 177 ==
LOC: ED 10:29 → 2E 15:24 → SUATTDRO 15:24 → 2E 16:18

== ENCOUNTER 2023-11-15 15:12 | Inpatient (IN) ==
--- NOTE | 2023-11-15 15:53 | Emergency Department Note ---
Impression & Plan Acute GI bleeding, Anemia, Hypoxic, Shortness of breath ED Provider Note NAME: MACIEL LEE AGE: 83 SEX: M : 1940 ARRIVES VIA: Walk-In INFORMANT: Patient ED PROVIDER(S): Jono Mcneil DO CHIEF COMPLAINT: Shortness of breath HPI: Patient is an 83-year-old male with a past medical history of COPD and CHF who presents to the ER for shortness of breath which has been gradually getting worse over the past 2 weeks. Patient denies any headache or change in vision. He admits to a 4 pound weight gain over this time. He normally wears about 4 L but over the past 2 weeks has been increased to 6. He notes that he almost passed out earlier today. He did see his on site wastewater systems technician and was referred in. I spoke with his on site wastewater systems technician and additional history was obtained from who was present at bedside as well. The notes that she was sent in by pulmonology for further evaluation. Discussed with pulmonology Dr. Lau who recommended admission, echo and CT angio of the chest. ADDITIONAL HISTORY OBTAINED: I spoke with his on site wastewater systems technician and additional history was obtained from who was present at bedside as well. The notes that she was sent in by pulmonology for further evaluation. Discussed with pulmonology Dr. Lau who recommended admission, echo and CT angio of the chest. Chronic Medical/Social Conditions Affecting Care: Per HPI PAST MEDICAL HISTORY:See Below PAST SURGICAL HISTORY:See Below FAMILY HISTORY:See Below SOCIAL HISTORY:See Below HOME MEDICATIONS:See Below ALLERGIES:See Below VITALS:See Below PHYSICAL EXAMINATION: GENERAL: Sitting up in bed, alert, obese, slightly dyspneic with conversation EYE EXAM: normal conjunctiva. OROPHARYNX: no exudate, no erythema, lips, buccal mucosa, and tongue normal and mucous membranes are moist NECK: supple, no nuchal rigidity, no adenopathy, non-tender LUNGS: Clear to auscultation. Normal chest wall mechanics HEART: no murmurs, S1 normal and S2 normal ABDOMEN: abdomen soft, non-tender, normo-active bowel sounds, no masses, no rebound or guarding. UPPER EXTREMITIES: upper extremities are grossly normal. LOWER EXTREMITIES: Pitting edema in the bilateral lower extremities NEURO EXAM: Normal sensorium, cranial nerves II-XII grossly intact, normal speech, no gross weakness of arms, no gross weakness of legs. MEDICAL DECISION MAKING: Patient is an 83-year-old male with a past medical history of COPD, CHF who presents the ER for above-stated complaint. IV was established blood work was obtained. Labs show no significant leukocytosis. Mild anemia at 8.8 down from 12.5. Rectal was heme positive with dark stools. Patient was placed on a Protonix drip and bolus. BMP with a creatinine 1.4. LFTs bilirubin was unremarkable. Troponin was negative. UA was clean. CT of the chest was performed at the request of pulmonology and was unremarkable for any acute pathology. He was on 6 L nasal cannula while in the ER. He was updated at bedside. He does have pitting edema. I do favor this is multifactorial and likely a combination of symptomatic anemia with his GI bleed and his hemoglobin dropping from 12 down to 8 in combination to CHF as he has pitting edema in the lower extremity and a recent weight gain. Did discuss case with the hospitalist. He was updated at bedside and discussed with Dr. Guru Rey for admission. Consults/Care Managements Discussions: Per [facility] Triage Nursing notes reviewed. Limited review of prior medical records performed Vital Signs: reviewed and remarkable for short of breath on 5 L Differential diagnosis: Differential diagnoses includes but is not limited to pneumonia, bronchitis, COPD/Asthma exacerbation, pneumothorax, pulmonary embolism, congestive heart failure, acute coronary syndrome ER treatment provided: See below Diagnostics interpreted by me include EKG and cardiac monitoring as listed below: -Cardiac Monitoring: An order was placed for continuous cardiac monitoring. The monitor shows a rate of 92 with AFIB rhythm. -ECG: A-fib rate of 94 Normal axis No PVCs QTc 462 -Laboratory studies:Interpreted by me as stated above in MDM and shown below. Imaging studies: Xrays: As interpreted by me: Portable AP upright 1 view of the chest shows cephalization CTs show: CT angio of the chest was negative per radiology Procedures:none Past Med/Surg History Medical History (Updated 11/15/23 @ 18:23 by Guru Rey MD) Chronic hypoxic respiratory failure, on home oxygen therapy COPD (chronic obstructive pulmonary disease) with chronic bronchitis Acute diastolic CHF (congestive heart failure), NYHA class 4 Diastolic CHF Pulmonary hypertension CHF (congestive heart failure) Iron deficiency Morbid obesity Chronic hypoxemic respiratory failure Emphysema lung Fibrotic lung diseases Abnormal liver CT Diabetes type 2, controlled Cerumen impaction Osteoarthritis Sleep apnea ON ABOVE LIST BUT PT DOES NOT HAVE Dyslipidemia Diabetic nephropathy associated with type 2 diabetes mellitus Carpal tunnel syndrome Acquired trigger finger of both ring fingers Seborrheic keratoses Exertional dyspnea 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 Chronic obstructive pulmonary disease WELL CONTROLLED> RARE INH USE Paroxysmal atrial fibrillation NO CARDIOVERSION> CONTROLLED WITH MEDS Hypertension Surgical History H/O foot surgery congenital deformity History of cataract surgery both eyes History of esophagogastroduodenoscopy (EGD) History of colonoscopy History of mandibular surgery REMOVED BENIGN TUMOR YRS AGO History of total knee replacement LEFT History of appendectomy Previous back surgery X2 LUMBAR> History of wisdom tooth extraction History of hip replacement Family History Father Cancer Mother COPD (chronic obstructive pulmonary disease) Denies family history of Ovarian cancer Prostate cancer Myocardial infarction Breast cancer Colorectal cancer Social History (Updated 12/18/22 @ 10:45 by Val Cherry LPN) Smoking Status: Former smoker Tobacco Type: Cigarettes Age Started Using Tobacco: 18; Age Quit Using Tobacco: 50; packs per day: 4; Second Hand Exposure: No; Do You Dip or Chew Tobacco: No; Hx Alcohol Use: No Hx Substance Use: No Preferred Language: Setswana Communication Ability: Effective Hearing Ability: Use of Hearing Aid 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 Person Required: No Beliefs That Will Affect Care: None marital status: Current Living Situation: Spouse current occupational status: retired 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 How many Children do You have: 6 other: is recoater Feels Safe at Home: Yes Childhood Exposure to Second-Hand Smoke: Yes Diet: regular caffeine: Yes (yoruba tea) during the past year weight has: remained stable Dental Care, Regularly: No Physical Activity Frequency: Daily Physical Activity Frequency Comment: Walking, housework/cleaning Seatbelt Use: always Sunscreen Use: No Assistive Devices: Glasses, Hearing Aid - Right and Oxygen - Continuous Allergies Allergies Allergy/AdvReac Type Severity Reaction Status Date / Time cheese Allergy Severe Hives Verified 11/10/23 16:57 Home Meds Home Medications Medication Instructions Recorded Confirmed epinephrine 0.3 mg/0.3 mL 0.3 mg subcut .INJECT 0.3ML 12/25/18 11/10/23 injection, auto-injector INTRAMU #1 ea cholecalciferol (vitamin D3) 25 5,000 unit PO DAILY 08/21/21 11/15/23 mcg (1,000 unit) capsule Oxygen Home E0424 1 ea .Route .COMPLEX 04/23/23 11/10/23 Previous Rx's Medication Instructions Recorded pen needle, diabetic 32 gauge x #200 ea 11/25/20" (BD Ultra-Fine Lavinia Pen Needle) Portable Oxygen E0431 #2 ea 05/09/21 FreeStyle Annette 14 Day Sensor #6 ea 01/13/22 (flash glucose sensor) furosemide 40 mg tablet (Lasix) 40 mg PO DAILY #90 tabs 03/13/22 gabapentin 100 mg capsule See Rx Instructions PO .COMPLEX 12/18/22 #540 caps fluticasone fur. 100 mcg-umeclid 1 inh inhalation DAILY #60 ea 02/01/23 62.5 mcg-vilant 25 mcg inhalat.powder (Trelegy Ellipta) insulin lispro 100 unit/mL See Rx Instructions subcut TID #90 03/31/23 subcutaneous pen (Humalog KwikPen mL (U-100) Insulin) miconazole nitrate 2 % topical 1 applic topical BID PRN rash #30 05/04/23 cream grams apixaban 5 mg tablet (Eliquis) 5 mg PO BID #60 tabs 05/24/23 losartan 100 mg tablet 100 mg PO QAM #90 tabs 07/22/23 simvastatin 40 mg tablet 40 mg PO HS #90 tabs 07/22/23 gabapentin 300 mg capsule 300 mg PO DAILY #90 caps 07/28/23 insulin glargine 100 unit/mL (3 45 unit (0.45 mL) subcut DAILY 90 07/30/23 mL) subcutaneous pen (Basaglar days #45 mL KwikPen U-100 Insulin) metformin 1,000 mg tablet 1,000 mg PO BID #180 tabs 09/23/23 dutasteride 0.5 mg capsule 0.5 mg PO DAILY #90 caps 10/20/23 methenamine hippurate 1 gram tablet 1 g PO BID #180 tabs 10/20/23 tamsulosin 0.4 mg capsule 0.4 mg PO DAILY #90 caps 10/20/23 sulfamethoxazole 800 1 tab PO BID #14 tabs 10/22/23 mg-trimethoprim 160 mg tablet (Bactrim DS) albuterol sulfate 90 mcg/actuation 2 puff inhalation QID PRN 10/25/23 aerosol inhaler shortness of breath or wheezing #6.7 grams metoprolol succinate 50 mg 50 mg PO BID #180 tabs 11/11/23 tablet,extended release 24 hr Results & Data (ED) Vital Signs Vital Signs - 24 hr 11/15/23 15:19 11/15/23 16:53 11/15/23 16:53 Temperature 36.5 C Temperature Source Temporal Artery Scan Pulse Rate 96 H Pulse Rate [Apical] 84 Pulse Rhythm Regular Pulse Strength Normal Respiratory Rate 22 20 Respiratory Effort / Characteristics Spontaneous Accessory Muscle Use Labored Short of Breath SOB on Exertion Respiratory Depth Normal Respiratory Pattern Tachypnea Blood Pressure 130/66 Blood Pressure [Right Arm] 124/85 Blood Pressure Mean 87 Blood Pressure Mean [Right Arm] 98 Blood Pressure Position Sitting Pulse Oximetry 90 96 96 Oxygen Delivery Method Nasal Cannula Nasal Cannula Oxygen Flow Rate 5 5 Sepsis Recent Fever Within 48 Hours No Sepsis New/Unexplained Change in Mental Status No Sepsis Action Taken by Nursing No Action Required 11/15/23 17:20 11/15/23 17:55 Temperature Temperature Source Pulse Rate 79 Pulse Rate [Apical] 75 Pulse Rhythm Pulse Strength Respiratory Rate 20 Respiratory Effort / Characteristics Non-Labored Spontaneous Respiratory Depth Normal Respiratory Pattern Blood Pressure Blood Pressure [Right Arm] 124/85 Blood Pressure Mean Blood Pressure Mean [Right Arm] 98 Blood Pressure Position Pulse Oximetry 96 Oxygen Delivery Method Nasal Cannula Oxygen Flow Rate 5 Sepsis Recent Fever Within 48 Hours Sepsis New/Unexplained Change in Mental Status Sepsis Action Taken by Nursing Laboratory Data 11/15/23 15:55 11/15/23 15:55 Lab Results 11/15/23 11/15/23 11/15/23 Range/Units 15:55 16:04 17:29 WBC 8.97 (4.8-10.8) K/ul RBC 2.99 L (4.70-6.10) M/uL Hgb 8.8 L (14.0-18.0) g/dl POC Hgb 9.5 L (14.0-18.0) g/dl Hct 29.0 L (42.0-52.0) % POC Hct 28 L (42-52) % MCV 97.0 (80.0-100.0) fL MCH 29.4 (25.0-34.0) pg MCHC 30.3 L (32.0-36.0) g/dL RDW Std Deviation 54.6 H (36.4-46.3) fL RDW Coeff of Pierce 15.6 H (11.5-14.5) % Plt Count 263 (130-400) K/uL MPV 9.8 (9.4-12.4) fL Immature Gran % (Auto) 0.2 % Neut % (Auto) 71.0 % Lymph % (Auto) 19.5 % [place] % (Auto) 8.0 % Eos % (Auto) 0.9 % Baso % (Auto) 0.4 % Reticulocyte % (Auto) 2.58 H (0.50-2.00) % Neut # (Auto) 6.36 (1.40-6.50) K/uL Lymph # (Auto) 1.75 (1.20-3.40) K/uL [place] # (Auto) 0.72 H (0.11-0.59) K/uL Eos # (Auto) 0.08 (0.00-0.50) K/uL Baso # (Auto) 0.04 (0.00-0.20) K/uL Reticulocyte # 0.080 (0.020-0.100) 10^6/uL Immature Gran # (Auto) 0.02 (0.01-0.20) K/uL POC Sodium 143 (135-144) mmol/L Sodium 143 (136-145) mmol/L POC Potassium 4.7 (3.3-5.0) mmol/L Potassium 4.7 (3.5-5.1) mmol/L POC Chloride 108 (101-112) mmol/L Chloride 109 H (98-107) mmol/L Carbon Dioxide 26 (21-32) mmol/L POC Total CO2 26 (24-31) mmol/L Anion Gap 8 (3-11) POC Anion Gap 15.0 L (16-25) mmol/L POC BUN 27 H (7-18) mg/dl BUN 29 H (6-23) mg/dl Creatinine 1.45 H (0.6-1.4) mg/dl POC Creatinine 1.7 H (0.6-1.3) mg/dl Est Cr Clr Drug Dosing 51.9 ml/min Est GFR ( Amer) 52.0 ml/min Est GFR (Non-Af Amer) 44.8 ml/min BUN/Creatinine Ratio 20.0 (10-20) Glucose 97 (70-99(Fasting)) mg/dl POC Glucose (other) 95 (70-99) mg/dl Calcium 9.6 (8.6-10.3) mg/dl POC Ioniz Calcium Maximiliano 1.24 (1.12-1.32) mmol/l Iron 40 (35-175) mcg/dl TIBC 406 (250-450) mcg/dl Unsaturated IBC 366 H (155-355) mcg/dl Transferrin % Sat 10 L (20-50) % Ferritin 10.3 (8-388) ng/ml Total Bilirubin 0.5 (0.2-1.0) mg/dl AST 12 L (13-39) U/L ALT 10 (7-52) U/L Alkaline Phosphatase 69 (34-104) U/L Lactate Dehydrogenase 177 (86-244) U/L Troponin I High Sens 11.6 (0-20) pg/ml B-Natriuretic Peptide 440 H (0-100) pg/ml Total Protein 6.9 (6.0-8.3) gm/dl Albumin 3.8 (3.4-5.0) gm/dl Globulin 3.1 (2.5-4.0) gm/dl Albumin/Globulin Ratio 1.2 (0.9-2) Lipase 27 (11-82) U/L Vitamin B12 1096 H (180-914) pg/ml Folate 9.83 (>5.38) ng/ml Urine Color Urine Appearance (Clear) Urine pH (4.5-7.5) Ur Specific [place] (1.000-1.030) Urine Protein (Negative) Urine Glucose (UA) (Negative) Urine Ketones (Negative) Urine Blood (Negative) Urine Nitrite (Negative) Urine Bilirubin (Negative) Urine Urobilinogen (Negative) Ur Leukocyte Esterase (Negative) Blood Type A Positive Antibody Screen NEGATIVE 11/15/23 Range/Units Unknown WBC (4.8-10.8) K/ul RBC (4.70-6.10) M/uL Hgb (14.0-18.0) g/dl POC Hgb (14.0-18.0) g/dl Hct (42.0-52.0) % POC Hct (42-52) % MCV (80.0-100.0) fL MCH (25.0-34.0) pg MCHC (32.0-36.0) g/dL RDW Std Deviation (36.4-46.3) fL RDW Coeff of Pierce (11.5-14.5) % Plt Count (130-400) K/uL MPV (9.4-12.4) fL Immature Gran % (Auto) % Neut % (Auto) % Lymph % (Auto) % [place] % (Auto) % Eos % (Auto) % Baso % (Auto) % Reticulocyte % (Auto) (0.50-2.00) % Neut # (Auto) (1.40-6.50) K/uL Lymph # (Auto) (1.20-3.40) K/uL [place] # (Auto) (0.11-0.59) K/uL Eos # (Auto) (0.00-0.50) K/uL Baso # (Auto) (0.00-0.20) K/uL Reticulocyte # (0.020-0.100) 10^6/uL Immature Gran # (Auto) (0.01-0.20) K/uL POC Sodium (135-144) mmol/L Sodium (136-145) mmol/L POC Potassium (3.3-5.0) mmol/L Potassium (3.5-5.1) mmol/L POC Chloride (101-112) mmol/L Chloride (98-107) mmol/L Carbon Dioxide (21-32) mmol/L POC Total CO2 (24-31) mmol/L Anion Gap (3-11) POC Anion Gap (16-25) mmol/L POC BUN (7-18) mg/dl BUN (6-23) mg/dl Creatinine (0.6-1.4) mg/dl POC Creatinine (0.6-1.3) mg/dl Est Cr Clr Drug Dosing ml/min Est GFR ( Amer) ml/min Est GFR (Non-Af Amer) ml/min BUN/Creatinine Ratio (10-20) Glucose (70-99(Fasting)) mg/dl POC Glucose (other) (70-99) mg/dl Calcium (8.6-10.3) mg/dl POC Ioniz Calcium Maximiliano (1.12-1.32) mmol/l Iron (35-175) mcg/dl TIBC (250-450) mcg/dl Unsaturated IBC (155-355) mcg/dl Transferrin % Sat (20-50) % Ferritin (8-388) ng/ml Total Bilirubin (0.2-1.0) mg/dl AST (13-39) U/L ALT (7-52) U/L Alkaline Phosphatase (34-104) U/L Lactate Dehydrogenase (86-244) U/L Troponin I High Sens (0-20) pg/ml B-Natriuretic Peptide (0-100) pg/ml Total Protein (6.0-8.3) gm/dl Albumin (3.4-5.0) gm/dl Globulin (2.5-4.0) gm/dl Albumin/Globulin Ratio (0.9-2) Lipase (11-82) U/L Vitamin B12 (180-914) pg/ml Folate (>5.38) ng/ml Urine Color Yellow Urine Appearance Clear (Clear) Urine pH 5.5 (4.5-7.5) Ur Specific [place] 1.010 (1.000-1.030) Urine Protein Negative (Negative) Urine Glucose (UA) Negative (Negative) Urine Ketones Negative (Negative) Urine Blood Negative (Negative) Urine Nitrite Negative (Negative) Urine Bilirubin Negative (Negative) Urine Urobilinogen Negative (Negative) Ur Leukocyte Esterase Negative (Negative) Blood Type Antibody Screen Administered Medications Pantoprazole Sodium 40 mg/ (Dextrose) 100 mls @ 20 mls/hr IV Q5H MARIO Stop: 12/15/23 17:29 Last Admin: 11/15/23 17:34 Dose: 8 mg/hr, 20 mls/hr Documented By: MMG Discontinued Medications Dextrose (Dextrose 50% 50 Ml Syringe) 25 ml IV NOW STA Stop: 11/15/23 17:22 Last Admin: 11/15/23 17:35 Dose: 25 ml Documented By: MMDarshan Furosemide (Furosemide 40 Mg/4 Ml Vial) 40 mg IV ONE STA Stop: 11/15/23 17:42 Last Admin: 11/15/23 17:54 Dose: 40 mg Documented By: MMG Pantoprazole Sodium 80 mg/ (Dextrose) 120 mls @ 480 mls/hr IV NOW ONE Stop: 11/15/23 17:19 Last Infusion: 11/15/23 18:55 Dose: Infused Documented By: Admin: 11/15/23 17:34 Dose: 480 mls/hr Documented By: PHILIP Ioversol (Optiray 320 125ml) 116 ml IV ONCE ONE Stop: 11/15/23 16:44 Last Admin: 11/15/23 16:45 Dose: 116 ml Documented By: DIO Pantoprazole Sodium (Pantoprazole Bolus/Drip) 1 each IV NOW STA Stop: 11/15/23 17:06 Last Admin: 11/15/23 17:28 Dose: Not Given Documented By: PHILIP Imaging Data Radiologist's Impression: Chest CTA 11/15/23 15:21 CHEST CTA for PULMONARY ARTERIES CT DOSE: 971.61 mGy.cm HISTORY: Atypical chest pain. TECHNIQUE: Multiaxial CT images of the chest were performed following the intravenous administration of contrast to evaluate the pulmonary arteries. 3D/Maximal intensity projection images were also obtained. Sagittal and coronal reformations were also reviewed. A dose lowering technique was utilized adhering to the principles of ALARA. COMPARISON STUDY: Chest CT 09/20/2020. FINDINGS: No acute fractures within the chest. No pneumothorax. Trace mucoid material within the proximal trachea. Otherwise, the central airways are patent. Mild respiratory motion artifact. Mild dependent changes seen at the lung bases. No focal lung consolidations to suggest a pneumonia. No evidence for pulmonary edema. Limited views of the upper abdomen demonstrate a nodular contour to the liver consistent with cirrhosis and a normal spleen and adrenal glands. Trace perihepatic and perisplenic ascites. The heart is mildly enlarged. No pleural or pericardial effusions. The thyroid gland enhances normally. Normal esophagus. Multiple prominent mediastinal and bilateral hilar lymph nodes are similar to the prior study. Therefore, these are likely benign given the long-term stability. Normal thyroid gland. Mild calcified plaque within the normal caliber thoracic aorta. No evidence for an aortic dissection. There are moderate coronary artery calcifications noted. Suboptimal evaluation of the bilateral lower lobe subsegmental pulmonary arteries due to the motion artifact. Otherwise, the remaining pulmonary arteries show no filling defects to suggest a pulmonary embolus. IMPRESSION: 1. No evidence for a pulmonary embolus with limitations as described above. 2. Stable mild cardiomegaly 3. No focal lung consolidations to suggest a pneumonia. 4. Cirrhotic liver with trace ascites within the abdomen. ACT 112: Negative or not required by law. Electronically signed by: Jaswant Price M.D. 11/15/2023 5:24 PM Chest X-Ray 11/15/23 15:21 XR chest 1V portable CLINICAL HISTORY: Chest pain, nonspecific COMPARISON STUDY: Chest CT September 20, 2020. Chest radiograph January 08, 2022. FINDINGS: Low lung volumes are unchanged. There is no pneumothorax or pleural effusion. Cardiomegaly is unchanged. Mediastinal contours are stable. There is suspected mild left basilar opacity. There is no evidence for pulmonary edema. IMPRESSION: 1. Suspected mild left basilar opacity. This may reflect pneumonia. 2. Cardiomegaly without evidence for pulmonary edema. ACT 112: Negative or not required by law. Electronically signed by: Porter Palma M.D. 11/15/2023 3:51 PM Discharge Plan Visit Data Chief Complaint: Referred by Doctor Stated Complaint: REF BY DOC, SOB, CONGESTIVE HEART FAILURE ED Provider: Jono Mcneil Discharge Problem: Acute GI bleeding, Anemia, Hypoxic, Shortness of breath Forms Stand Alone Forms: [facility] Turned On Digital Prescriptions Prescriptions: No Action (DME) pen needle, diabetic [BD Ultra-Fine Lavinia Pen Needle] 32 gauge x 5/32" needle See Dose Instructions .ROUTE .MEDSUPPLY Qty: 200 5RF Dose Instruction: As directed Rx Instructions: 4 times a day (DME) Portable Oxygen E0431 Misc See Rx Instructions .Route Qty: 2 0RF Rx Instructions: Pt needs extra battery pack for POC 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) FreeStyle Annette 14 Day Sensor Kit See Rx Instructions .Route Qty: 6 3RF Rx Instructions: change sensor Q14D furosemide [Lasix] 40 mg tablet 40 mg PO DAILY Qty: 90 3RF Trelegy Ellipta 100-62.5-25 mcg blister with device 1 inh inhalation DAILY Qty: 60 11RF miconazole nitrate 2 % cream 1 applic topical BID PRN (Reason: rash) Qty: 30 5RF simvastatin 40 mg tablet 40 mg PO HS Qty: 90 1RF losartan 100 mg tablet 100 mg PO QAM Qty: 90 3RF Rx Instructions: TAKE 1 TABLET BY MOUTH DAILY insulin glargine [Basaglar KwikPen U-100 Insulin] 100 unit/mL (3 mL) insulin pen 45 unit SQ DAILY 90 Days Qty: 45 3RF metformin 1,000 mg tablet 1,000 mg PO BID Qty: 180 1RF sulfamethoxazole-trimethoprim [Bactrim DS] 800-160 mg tablet 1 tab PO BID Qty: 14 0RF albuterol sulfate 90 mcg/actuation HFA aerosol inhaler 2 puff inhalation QID PRN (Reason: shortness of breath or wheezing) Qty: 6.7 0RF metoprolol succinate 50 mg tablet extended release 24 hr 50 mg PO BID Qty: 180 1RF insulin lispro [Humalog KwikPen Insulin] 100 unit/mL insulin pen See Rx Instructions subcut TID Qty: 90 3RF Rx Instructions: inject 18 units plus sliding scale at meals TDD 100 units subcut three times a day; methenamine hippurate 1 gram tablet 1 g PO BID Qty: 180 3RF Rx Instructions: Start after completing current course of antibiotics dutasteride 0.5 mg capsule 0.5 mg PO DAILY Qty: 90 2RF tamsulosin 0.4 mg capsule 0.4 mg PO DAILY Qty: 90 2RF cholecalciferol (vitamin D3) 25 mcg (1,000 unit) capsule 5,000 unit PO DAILY gabapentin 100 mg capsule See Rx Instructions PO .COMPLEX Qty: 540 1RF Rx Instructions: 2 tabs in AM and noon, 2 tabs QHS Oxygen Home E0424 Liters Per Minute 1 ea .ROUTE .COMPLEX Rx Instructions: 1 ea Oxygen 4 L/min via nasal cannula DX:[id number]; gabapentin 300 mg capsule 300 mg PO DAILY Qty: 90 3RF epinephrine 0.3 mg/0.3 mL auto-injector 0.3 mg subcut .INJECT 0.3ML INTRAMU Qty: 1 Eliquis 5 mg tablet 5 mg PO BID Qty: 60 5RF Referrals Referrals: Lin Abraham MD [Primary Care Provider] - Discharge Problem: Anemia Qualifiers: Anemia type: unspecified type Qualified Code(s): D64.9 - Anemia, unspecified
[2023-11-15 16:13] LABS: Basophils # (auto) 0.04 K/uL (0.00-0.20); Basophils % (auto) 0.4 %; Eosinophils # (auto) 0.08 K/uL (0.00-0.50); Eosinophils % (auto) 0.9 %; Hemoglobin 8.8 g/dl (14.0-18.0); Immature Granulocytes # (auto) 0.02 K/uL (0.01-0.20); Immature Granulocytes % (auto) 0.2 %; Lymphocytes # (auto) 1.75 K/uL (1.20-3.40); Lymphocytes % (auto) 19.5 %; Mean Corpuscular Hemoglobin 29.4 pg (25.0-34.0); Mean Corpuscular Hgb Conc 30.3 g/dL (32.0-36.0); Mean Platelet Volume 9.8 fL (9.4-12.4); Monocytes # (auto) 0.72 K/uL (0.11-0.59); Neutrophils # (auto) 6.36 K/uL (1.40-6.50); Platelet Count 263 K/uL (130-400); RDW Coefficient of Variation 15.6 % (11.5-14.5); RDW Standard Deviation 54.6 fL (36.4-46.3); Red Blood Count 2.99 M/uL (4.70-6.10); White Blood Count 8.97 K/ul (4.8-10.8)
[2023-11-15 16:21] LABS: iSTAT Creatinine 1.7 mg/dl (0.6-1.3); iSTAT Hemoglobin 9.5 g/dl (14.0-18.0); iSTAT Ionized Calcium 1.24 mmol/l (1.12-1.32); iSTAT Potassium 4.7 mmol/L (3.3-5.0)
[2023-11-15 16:33] LABS: Albumin Globulin Ratio 1.2 (0.9-2); Albumin Level 3.8 gm/dl (3.4-5.0); Bilirubin,Total 0.5 mg/dl (0.2-1.0); Calcium 9.6 mg/dl (8.6-10.3); Creatinine Clr Calc Pharmacy 51.9 ml/min; Est GFR (Non-African American) 44.8 ml/min; Globulin 3.1 gm/dl (2.5-4.0); Potassium 4.7 mmol/L (3.5-5.1); Total Protein 6.9 gm/dl (6.0-8.3)
[2023-11-15 16:38] LABS: Troponin I High Sensitivity 11.6 pg/ml (0-20)
[2023-11-15] MEDS: OPTIRAY 320 125ml IV ONE (16:45)
--- NOTE | 2023-11-15 17:27 | CT Scan Report ---
CHEST CTA for PULMONARY ARTERIES CT DOSE: 971.61 mGy.cm HISTORY: Atypical chest pain. TECHNIQUE: Multiaxial CT images of the chest were performed following the intravenous administration of contrast to evaluate the pulmonary arteries. 3D/Maximal intensity projection images were also obta ined. Sagittal and coronal reformations were also reviewed. A dose lowering technique was utilized a dhering to the principles of ALARA. COMPARISON STUDY: Chest CT 09/20/2020. FINDINGS: No acute fractures within the chest. No pneumothorax. Trace mucoid material within the prox imal trachea. Otherwise, the central airways are patent. Mild respiratory motion artifact. Mild depen dent changes seen at the lung bases. No focal lung consolidations to suggest a pneumonia. No evidence for pulmonary edema. Limited views of the upper abdomen demonstrate a nodular contour to the liver c onsistent with cirrhosis and a normal spleen and adrenal glands. Trace perihepatic and perisplenic as cites. The heart is mildly enlarged. No pleural or pericardial effusions. The thyroid gland enhances normally. Normal esophagus. Multiple prominent mediastinal and bilateral hilar lymph nodes are simila r to the prior study. Therefore, these are likely benign given the long-term stability. Normal thyroi d gland. Mild calcified plaque within the normal caliber thoracic aorta. No evidence for an aortic di ssection. There are moderate coronary artery calcifications noted. Suboptimal evaluation of the bilat eral lower lobe subsegmental pulmonary arteries due to the motion artifact. Otherwise, the remaining pulmonary arteries show no filling defects to suggest a pulmonary embolus. IMPRESSION: 1. No evidence for a pulmonary embolus with limitations as described above. 2. Stable mild cardiomegaly 3. No focal lung consolidations to suggest a pneumonia. 4. Cirrhotic liver with trace ascites within the abdomen. ACT 112: Negative or not required by law. Electronically signed by: Jaswant Price M.D. 11/15/2023 5:24 PM
[2023-11-15] MEDS: PANTOPRAZOLE BOLUS/DRIP IV STA (17:28)
[2023-11-15] MEDS: PANTOprazole 40 MG in DEXTROSE 5% MINI-B 100 ML IV SCH (17:34)
[2023-11-15] MEDS: PANTOprazole 80 MG in DEXTROSE 5% 100 ML IV ONE (17:34)
[2023-11-15] MEDS: DEXTROSE 50% 50 ML SYRINGE IV STA (17:35)
[2023-11-15] MEDS: FUROSEMIDE 40 MG/4 ML VIAL IV STA (17:54)
--- NOTE | 2023-11-15 18:23 | History & Physical Report ---
Date of Service November 15, 2023 Assessment & Plan (1) Acute on chronic HFrEF (heart failure with reduced ejection fraction): Plan: Suspect combination of CHF and liver cirrhosis Low Na, fluid restricted diet Lasix 40mg IV Add spironolactone 25mg PO daily and monitor potassium closely Continue metoprolol succinate Strict I&Os Daily weights TTE Consult [facility] CHF Program Referral (2) Urine retention: Plan: Possibly lead to CHF exacerbation although this was found after Lasix given and while in bed Bladder scan PVR > 500ml confirmed on UO with leong catheter Leong catheter inserted on day of admission Known BPH with tamsulosin and dutasteride Consider trial without leong once more ambulatory Follow up with urology as outpatient (3) Acute on chronic respiratory failure with hypoxia: Plan: Aim O2 sat 88-92% Baseline 3LPM O2 Acute worsening likely due to CHF and GI bleed (4) Symptomatic anemia: Plan: Suspected acute GI bleed with acute blood loss anemia - Patient with history of GI bleed Iron stidues, B12, folate, retic count, LDH, FOB +ve in the ER Started on Pantoprazole IV bolus and drip, add octreotide and ceftriaxone in setting of liver cirrhosis q6h H&H Initial transfusion threshold < 7 but if remains symptomatic after diuresis may need to increase to < 9 NPO after midnight Consult gastroenterology (5) Paroxysmal atrial fibrillation: Plan: Hold Eliquis due to GI bleed Continue rate control with metoprolol succinate (6) Chronic obstructive pulmonary disease: Plan: No acute exacerbation suspected Continue routine inhalers (7) Type 2 diabetes mellitus, with long-term current use of insulin: Plan: Hemoglobin A1C 7.5 in February 2023, repeat with AM labs although cautiously interpret in setting of GI bleed (8) Hypertension: Plan: Continue metoprolol succinate, losartan as long as BP allows Add Lasix and spironolactone as above (9) 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: Plan: with ascites INR and Plt normal (10) BPH loc w urin obs/LUTS: (11) Acute GI bleeding: (12) Acute blood loss anemia: Plan VTE Prophylaxis - Eliquis on hold pending GI workup and hemoglobin stability Diet - clear liquids, T2DM, heart healthy, low Na, fluids restrict Disposition - admit to PCU Admission and Anticipated Discharge Date Admission Date: November 15, 2023 History of Present Illness Chief Complaint: Shortness of breath and generalized weakness Primary Care Provider: Lin Abraham MD Se saleh is an 83 year old male with COPD and CHF who presents to the 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 He reports this started after a cough and cold illness which he has since recovered from starting 2 weeks ago. Although his cough and nasal congestion improved his shortness of breath expecially on exertion has become much worse. He denies any exertional chest pain, palpitations, orthopnea or PND. He is getting lightheaded when he stands/sits up quickly. and worse since then. Today he almost had a syncopal event when walking into gas station but this was because his oxygen had come off. His reports he may have not been taking his lasix regularly. He feels the weight of his abdomen is pushing on his chest making it harder to breath. Allergies Allergy/AdvReac Type Severity Reaction Status Date / Time cheese Allergy Severe Hives Verified 11/15/23 19:28 Home Medications Medication Instructions Recorded Confirmed Type epinephrine 0.3 mg/0.3 mL 0.3 mg subcut .INJECT 0.3ML 12/25/18 11/15/23 History injection, auto-injector INTRAMU #1 ea pen needle, diabetic 32 gauge x #200 ea 11/25/20 11/10/23 Rx " (BD Ultra-Fine Lavinia Pen Needle) Portable Oxygen E0431 #2 ea 05/09/21 11/10/23 Rx cholecalciferol (vitamin D3) 25 5,000 unit PO DAILY 08/21/21 11/15/23 History mcg (1,000 unit) capsule FreeStyle Annette 14 Day Sensor #6 ea 01/13/22 11/10/23 Rx (flash glucose sensor) furosemide 40 mg tablet (Lasix) 40 mg PO DAILY #90 tabs 03/13/22 11/15/23 Rx fluticasone fur. 100 mcg-umeclid 1 inh inhalation DAILY #60 ea 02/01/23 11/15/23 Rx 62.5 mcg-vilant 25 mcg inhalat.powder (Trelegy Ellipta) insulin lispro 100 unit/mL See Rx Instructions subcut TID #90 03/31/23 11/15/23 Rx subcutaneous pen (Humalog KwikPen mL (U-100) Insulin) Oxygen Home E0424 1 ea .Route .COMPLEX 04/23/23 11/10/23 History miconazole nitrate 2 % topical 1 applic topical BID PRN rash #30 05/04/23 11/15/23 Rx cream grams apixaban 5 mg tablet (Eliquis) 5 mg PO BID #60 tabs 05/24/23 11/15/23 Rx losartan 100 mg tablet 100 mg PO QAM #90 tabs 07/22/23 11/15/23 Rx simvastatin 40 mg tablet 40 mg PO HS #90 tabs 07/22/23 11/15/23 Rx insulin glargine 100 unit/mL (3 45 unit (0.45 mL) subcut DAILY 90 07/30/23 11/15/23 Rx mL) subcutaneous pen (Basaglar days #45 mL KwikPen U-100 Insulin) metformin 1,000 mg tablet 1,000 mg PO BID #180 tabs 09/23/23 11/15/23 Rx dutasteride 0.5 mg capsule 0.5 mg PO DAILY #90 caps 10/20/23 11/15/23 Rx methenamine hippurate 1 gram tablet 1 g PO BID #180 tabs 10/20/23 11/15/23 Rx tamsulosin 0.4 mg capsule 0.4 mg PO DAILY #90 caps 10/20/23 11/15/23 Rx albuterol sulfate 90 mcg/actuation 2 puff inhalation QID PRN 10/25/23 11/15/23 Rx aerosol inhaler shortness of breath or wheezing #6.7 grams metoprolol succinate 50 mg 50 mg PO BID #180 tabs 11/11/23 11/15/23 Rx tablet,extended release 24 hr gabapentin 100 mg capsule 100 mg PO BID 11/15/23 11/15/23 History gabapentin 300 mg capsule 300 mg PO HS 11/15/23 11/15/23 History Past Med/Surg History Medical History (Updated 11/16/23 @ 06:33 by Guru Rey MD) Chronic hypoxic respiratory failure, on home oxygen therapy COPD (chronic obstructive pulmonary disease) with chronic bronchitis Acute diastolic CHF (congestive heart failure), NYHA class 4 Diastolic CHF Pulmonary hypertension CHF (congestive heart failure) Iron deficiency Morbid obesity Chronic hypoxemic respiratory failure Emphysema lung Fibrotic lung diseases Abnormal liver CT Diabetes type 2, controlled Cerumen impaction Osteoarthritis Sleep apnea ON ABOVE LIST BUT PT DOES NOT HAVE Dyslipidemia Diabetic nephropathy associated with type 2 diabetes mellitus Carpal tunnel syndrome Acquired trigger finger of both ring fingers Seborrheic keratoses Exertional dyspnea 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 Chronic obstructive pulmonary disease WELL CONTROLLED> RARE INH USE Paroxysmal atrial fibrillation NO CARDIOVERSION> CONTROLLED WITH MEDS Hypertension Surgical History H/O foot surgery congenital deformity History of cataract surgery both eyes History of esophagogastroduodenoscopy (EGD) History of colonoscopy History of mandibular surgery REMOVED BENIGN TUMOR YRS AGO History of total knee replacement LEFT History of appendectomy Previous back surgery X2 LUMBAR> History of wisdom tooth extraction History of hip replacement Family History Father Cancer Mother COPD (chronic obstructive pulmonary disease) Denies family history of Ovarian cancer Prostate cancer Myocardial infarction Breast cancer Colorectal cancer Social History (Updated 12/18/22 @ 10:45 by Val Cherry LPN) Smoking Status: Former smoker Tobacco Type: Cigarettes Age Started Using Tobacco: 18; Age Quit Using Tobacco: 50; packs per day: 4; Smoking End Date: ; Second Hand Exposure: No; Do You Dip or Chew Tobacco: No; Hx Alcohol Use: Yes Alcohol type: beer Hx Substance Use: No Preferred Language: Azeri Communication Ability: Effective Hearing Ability: Use of Hearing Aid Soil Specialist Required: No Beliefs That Will Affect Care: None marital status: Current Living Situation: Spouse current occupational status: retired current occupation: worked doing [employer] How many Children do You have: 6 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 Feels Safe at Home: Yes Childhood Exposure to Second-Hand Smoke: Yes Diet: regular caffeine: Yes (libyan tea) during the past year weight has: remained stable Dental Care, Regularly: No Physical Activity Frequency: Daily Physical Activity Frequency Comment: Walking, housework/cleaning Seatbelt Use: always Sunscreen Use: No Assistive Devices: Oxygen - Continuous, Scooter/Electric Scooter and Walker Review of Systems Review of Systems: All systems reviewed & are unremarkable except as noted in HPI & below Physical Exam Constitutional: WD/WN, vitals as above Eyes: PERRL, conjunctivae normal, anicteric sclerae ENMT: external ear and nose normal, oropharynx normal Neck: trachea midline, no thyromegaly Respiratory: + labored breathing and + uses accessory muscles; not tachypneic and expiratory phase not prolonged Auscultation: + crackles (bibasal); breath sounds present, no diminished lung sounds, no rales, no rhonchi and no wheezes Cardiovascular: Rate/Rhythm: regular rate and + irregularly irregular Heart Sounds: no murmur Extremities: normal capillary refill and + pedal edema (2+ equal b/l); no calf tenderness Gastrointestinal (Abdomen): normal bowel sounds, soft, nontender, no hepatosplenomegaly Inspection/Auscultation: + abdomen distended Musculoskeletal: no cyanosis or clubbing, extremities motor strength 5/5 Skin: no rashes, warm and dry Neurologic: moves all extremities and awake; not confused Psychiatric: A+Ox3, euthymic affect Genitourinary: no CVA tenderness Results & Data Results & Data Vital Signs (Past 12 Hours) Vital Signs Temp Pulse Pulse Resp BP BP Pulse Ox 11/15/23 17:55 75 20 124/85 96 11/15/23 17:20 79 11/15/23 16:53 96 11/15/23 16:53 84 20 124/85 96 11/15/23 15:19 36.5 C 96 H 22 130/66 90 O2 Del Method O2 Flow Rate 11/15/23 17:55 Nasal Cannula 5 11/15/23 17:20 11/15/23 16:53 11/15/23 16:53 Nasal Cannula 5 11/15/23 15:19 Nasal Cannula 5 Laboratory Results Abnormal lab results 11/15/23 11/15/23 Range/Units 15:55 16:04 RBC 2.99 L (4.70-6.10) M/uL Hgb 8.8 L (14.0-18.0) g/dl POC Hgb 9.5 L (14.0-18.0) g/dl Hct 29.0 L (42.0-52.0) % POC Hct 28 L (42-52) % MCHC 30.3 L (32.0-36.0) g/dL RDW Std Deviation 54.6 H (36.4-46.3) fL RDW Coeff of Pierce 15.6 H (11.5-14.5) % Reticulocyte % (Auto) 2.58 H (0.50-2.00) % School[place] # (Auto) 0.72 H (0.11-0.59) K/uL Chloride 109 H (98-107) mmol/L POC Anion Gap 15.0 L (16-25) mmol/L POC BUN 27 H (7-18) mg/dl BUN 29 H (6-23) mg/dl Creatinine 1.45 H (0.6-1.4) mg/dl POC Creatinine 1.7 H (0.6-1.3) mg/dl Unsaturated IBC 366 H (155-355) mcg/dl Transferrin % Sat 10 L (20-50) % AST 12 L (13-39) U/L B-Natriuretic Peptide 440 H (0-100) pg/ml Diagnostic Findings XR chest 1V portable CLINICAL HISTORY: Chest pain, nonspecific COMPARISON STUDY: Chest CT September 20, 2020. Chest radiograph January 08, 2022. FINDINGS: Low lung volumes are unchanged. There is no pneumothorax or pleural effusion. Cardiomegaly is unchanged. Mediastinal contours are stable. There is suspected mild left basilar opacity. There is no evidence for pulmonary edema. IMPRESSION: 1. Suspected mild left basilar opacity. This may reflect pneumonia. 2. Cardiomegaly without evidence for pulmonary edema. CHEST CTA for PULMONARY ARTERIES CT DOSE: 971.61 mGy.cm HISTORY: Atypical chest pain. TECHNIQUE: Multiaxial CT images of the chest were performed following the intravenous administration of contrast to evaluate the pulmonary arteries. 3D/Maximal intensity projection images were also obtained. Sagittal and coronal reformations were also reviewed. A dose lowering technique was utilized adhering to the principles of ALARA. COMPARISON STUDY: Chest CT 09/20/2020. FINDINGS: No acute fractures within the chest. No pneumothorax. Trace mucoid material within the proximal trachea. Otherwise, the central airways are patent. Mild respiratory motion artifact. Mild dependent changes seen at the lung bases. No focal lung consolidations to suggest a pneumonia. No evidence for pulmonary edema. Limited views of the upper abdomen demonstrate a nodular contour to the liver consistent with cirrhosis and a normal spleen and adrenal glands. Trace perihepatic and perisplenic ascites. The heart is mildly enlarged. No pleural or pericardial effusions. The thyroid gland enhances normally. Normal esophagus. Multiple prominent mediastinal and bilateral hilar lymph nodes are similar to the prior study. Therefore, these are likely benign given the long-term stability. Normal thyroid gland. Mild calcified plaque within the normal caliber thoracic aorta. No evidence for an aortic dissection. There are moderate coronary artery calcifications noted. Suboptimal evaluation of the bilateral lower lobe subsegmental pulmonary arteries due to the motion artifact. Otherwise, the remaining pulmonary arteries show no filling defects to suggest a pulmonary embolus. IMPRESSION: 1. No evidence for a pulmonary embolus with limitations as described above. 2. Stable mild cardiomegaly 3. No focal lung consolidations to suggest a pneumonia. 4. Cirrhotic liver with trace ascites within the abdomen. Medications Administered ER medications given: Pantoprazole 80 mg bolus and drip Dextrose 50% 25 mL ECG Rate (beats per minute): 94 Rhythm: atrial fibrillation Code Status & VTE Plan Code Status DNR in setting of cardiac arrest, all other treatment including intubation outside of a cardiac arrest VTE Prophylaxis Plan VTE Prophylaxis will be ordered: Yes PG Care Time/CCT Total # of Minutes Spent Total Time Spent with Patient: Total time spent is greater than 50% in coordination of care (as documented) at patient's floor/unit and/or counseling patient: Coding Level of Care Code 36260 INT INP/OBS CARE 3/75MIN Diagnoses Acute on chronic HFrEF (heart failure with reduced ejection fraction) I50.23 Urine retention R33.9 Acute on chronic respiratory failure with hypoxia J96.21 Symptomatic anemia D64.9 Paroxysmal atrial fibrillation I48.0 Chronic obstructive pulmonary disease J44.9 Type 2 diabetes mellitus, with long-term current use of insulin E11.9; Z79.4 Essential hypertension I10 Hypertension type: essential hypertension 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
[2023-11-15 18:27] LABS: Appearance Urine Clear (Clear); Bilirubin Urine Negative (Negative); Blood Urine Negative (Negative); Color Urine Yellow; Glucose Urine UA Negative (Negative); Ketones Urine Negative (Negative); Leukocyte Esterase Urine Negative (Negative); Nitrite Urine Negative (Negative); Protein Urine Negative (Negative); Urobilinogen Urine Negative (Negative); pH Urine 5.5 (4.5-7.5)
[2023-11-15 18:31] LABS: Ferritin 10.3 ng/ml (8-388); Reticulocyte % 2.58 % (0.50-2.00)
[2023-11-15 18:49] LABS: Folate (Folic Acid),Ser orPlas 9.83 ng/ml (>5.38)
[2023-11-15] MEDS ORDERED: CARBOHYDRATES FOR HYPOGLYCEMIA PO PRN (20:46)
[2023-11-15] MEDS ORDERED: GLUCAGON FOR INJ 1 MG VIAL SQ PRN (20:46)
[2023-11-15] MEDS ORDERED: DEXTROSE 50% 50 ML SYRINGE IV PRN (20:46)
[2023-11-15] MEDS ORDERED: PHARMACY GLYCEMIC MGMT CONSULT PRN (20:46)
[2023-11-15] MEDS ORDERED: GLUCOSE 10 TAB/TUBE PO PRN (20:46)
[2023-11-15] MEDS ORDERED: GLUCOSE 40% GEL 15 GM TUBE PO PRN (20:46)
[2023-11-15] MEDS: INSULIN ASPART PER UNIT CHARGE SC SCH (21:57)
[2023-11-15] MEDS: GABAPENTIN 300 MG CAP PO SCH (22:02)
[2023-11-15] MEDS ORDERED: GABAPENTIN 100 MG CAP PO PRN (22:32)
[2023-11-15 23:11] LABS: Hematocrit (blood only) 29.5 % (42.0-52.0)
[2023-11-16 04:53] LABS: Basophils # (auto) 0.05 K/uL (0.00-0.20); Basophils % (auto) 0.6 %; Eosinophils # (auto) 0.13 K/uL (0.00-0.50); Eosinophils % (auto) 1.5 %; Hematocrit (blood only) 26.9 % (42.0-52.0); Hemoglobin 8.1 g/dl (14.0-18.0); Immature Granulocytes # (auto) 0.02 K/uL (0.01-0.20); Immature Granulocytes % (auto) 0.2 %; Lymphocytes # (auto) 2.02 K/uL (1.20-3.40); Lymphocytes % (auto) 23.3 %; Mean Corpuscular Hemoglobin 28.6 pg (25.0-34.0); Mean Corpuscular Hgb Conc 30.1 g/dL (32.0-36.0); Mean Corpuscular Volume 95.1 fL (80.0-100.0); Mean Platelet Volume 9.5 fL (9.4-12.4); Monocytes % (auto) 9.2 %; Neutrophils # (auto) 5.66 K/uL (1.40-6.50); Neutrophils % (auto) 65.2 %; Platelet Count 232 K/uL (130-400); RDW Coefficient of Variation 15.3 % (11.5-14.5); RDW Standard Deviation 52.9 fL (36.4-46.3); Red Blood Count 2.83 M/uL (4.70-6.10); White Blood Count 8.68 K/ul (4.8-10.8)
[2023-11-16 05:10] LABS: Albumin Globulin Ratio 1.3 (0.9-2); Albumin Level 3.6 gm/dl (3.4-5.0); BUN Creatinine Ratio 20.6 (10-20); Bilirubin,Total 0.5 mg/dl (0.2-1.0); Calcium 9.3 mg/dl (8.6-10.3); Creatinine Clr Calc Pharmacy 57.5 ml/min; Est GFR (African American) 56.2 ml/min; Est GFR (Non-African American) 48.5 ml/min; Globulin 2.7 gm/dl (2.5-4.0); Magnesium 1.7 mg/dl (1.7-2.4); Potassium 4.1 mmol/L (3.5-5.1); Total Protein 6.3 gm/dl (6.0-8.3)
[2023-11-16] MEDS ORDERED: MICONAZOLE NITRATE 2% CR 30 GM TUBE TOP PRN (06:25)
[2023-11-16] MEDS ORDERED: STAT IV/IM STA (06:44)
[2023-11-16 07:47] LABS: Estimated Average Glucose 157 mg/dl; Hemoglobin A1C 7.1 % (4.5-5.6)
[2023-11-16] MEDS: OCTREOTIDE ACETATE 500 MCG in 0.9 % SODIUM CHLORIDE 100 ML IV SCH (07:48)
[2023-11-16] MEDS: OCTREOTIDE ACETATE 100 MCG in SYRINGE 9 ML IV ONE (07:48)
[2023-11-16] MEDS: INSULIN ASPART PER UNIT CHARGE SC SCH ×2 (07:52→17:03)
[2023-11-16] MEDS: FUROSEMIDE 40 MG/4 ML VIAL IV SCH (07:54)
[2023-11-16] MEDS: FINASTERIDE 5 MG TAB PO SCH (07:54)
[2023-11-16] MEDS: FLUTICASONE FUROATE 100MCG 14 PUFFS/INHALER INH SCH (07:54)
[2023-11-16] MEDS: LOSARTAN POTASSIUM 50 MG TAB PO SCH (07:55)
[2023-11-16] MEDS: METOPROLOL SUCC 50MG EXT REL TAB PO SCH (07:55)
[2023-11-16] MEDS: TAMSULOSIN HCL 0.4 MG CAP PO SCH (07:56)
[2023-11-16] MEDS: SPIRONOLACTONE 25 MG TAB PO SCH (07:56)
[2023-11-16] MEDS: UMECLIDINIUM/VILANTEROL 62.5/25MCG 7 PUFFS/INHALER INH SCH (07:56)
[2023-11-16] MEDS: cefTRIAXone SODIUM 2,000 MG in DEXTROSE 5 % MINI-B 50 ML IV SCH (08:26)
[2023-11-16] MEDS: CHOLECALCIFEROL 125 MCG (5,000 UNITS) TAB PO SCH (08:35)
[2023-11-16] MEDS: METHENAMINE HIPPURATE 1 GM TAB PO SCH (08:36)
[2023-11-16] MEDS ORDERED: NON-FORMULARY MEDICATION (Insulin Glargine [Basaglar Kwikpen U-100 Insulin] 100 unit/mL (3 SQ SCH (09:00)
[2023-11-16] MEDS ORDERED: GABAPENTIN 100 MG CAP PO SCH (09:00)
[2023-11-16 10:13] LABS: Hematocrit (blood only) 28.3 % (42.0-52.0); Hemoglobin 8.8 g/dl (14.0-18.0)
--- NOTE | 2023-11-16 10:43 | Hospitalist Progress Note ---
Date of Service November 16, 2023 Assessment & Plan (1) Acute on chronic HFrEF (heart failure with reduced ejection fraction): Plan: Acute on chronic heart failure with reduced ejection fraction Reported worsening shortness of breath, which prompted his director of residential services to send him from the clinic BNP 400 2D echo has been done, result pending Continue IV Lasix 40 mg daily Monitor input and output, daily weight Continue low-sodium diet Add spironolactone 25mg PO daily and monitor potassium closely Continue metoprolol succinate Consult [facility] CHF Program Referral (2) Urine retention: Plan: Now resolved following insertion of Leong catheter Known BPH with tamsulosin and dutasteride, continue Consider trial without leong once more ambulatory Follow up with urology as outpatient (3) Acute on chronic respiratory failure with hypoxia: Plan: Aim O2 sat 88-92% Baseline 3LPM O2 Acute worsening likely due to CHF and GI bleed (4) Symptomatic anemia: Plan: Suspected acute GI bleed with acute blood loss anemia - Patient with history of GI bleed Iron stidues, B12, folate, retic count, all have been reviewed, LDH, FOB +ve in the ER Started on Pantoprazole IV bolus and drip, add octreotide and ceftriaxone in setting of liver cirrhosis q6h H&H Initial transfusion threshold < 7 but if remains symptomatic after diuresis may need to increase to < 9 Consult gastroenterology (5) Paroxysmal atrial fibrillation: Plan: Hold Eliquis due to GI bleed Continue rate control with metoprolol succinate (6) Chronic obstructive pulmonary disease: Plan: No acute exacerbation suspected Continue routine inhalers (7) Type 2 diabetes mellitus, with long-term current use of insulin: Plan: Hemoglobin A1C 7.5 in February 2023, repeat with AM labs although cautiously interpret in setting of GI bleed (8) Hypertension: Plan: Continue metoprolol succinate, losartan as long as BP allows Add Lasix and spironolactone as above (9) 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: Plan: CT showed evidence of mild ascites INR and Plt normal (10) BPH loc w urin obs/LUTS: Plan: As above (11) Acute GI bleeding: (12) Acute blood loss anemia: Plan VTE Prophylaxis - Eliquis on hold pending GI workup and hemoglobin stability Diet - clear liquids, T2DM, heart healthy, low Na, fluids restrict Disposition -continue to monitor in the hospital Admission and Anticipated Discharge Date Admission Date: November 15, 2023 Subjective Patient seen and examined, shortness of breath this is a little improved Review of Systems Review of Systems: All systems reviewed are negative, apart from the ones contained in the history. Physical Exam Physical Exam: The patient is awake, alert and oriented 3, well developed and well nourished, normocephalic and atraumatic, lying in bed and in no acute distress. HEENT--PERRL, EOMI, mucous membranes and oropharynx mildly dry Neck--supple. No JVD. No bruits. Thyroid normal, trachea midline, no adenopathy. Heart--normal S1 and S2. No murmurs, rubs or gallops. Lungs--reduced air entry on auscultation, some respiratory distress Abdomen--normal bowel sounds and soft. Extremities--trace bilateral leg edema. Dermatologic--normal skin turgor, normal color, no abnormal lymph nodes, no rash. Neurologic--cranial nerves II through XII grossly intact. Rheumatologic--normal range of motion. Psychiatric--normal affect. Results & Data Results & Data Vital Signs (Past 12 Hours) Vital Signs Temp Pulse Resp BP Pulse Ox O2 Del Method O2 Flow Rate 11/16/23 08:00 Nasal Cannula 5 11/16/23 08:00 97.5 F L 72 12 103/68 95 Nasal Cannula 5 11/16/23 04:41 97.9 F 80 16 144/70 H 94 Nasal Cannula 5 11/15/23 23:36 Nasal Cannula 5 11/15/23 23:30 97.9 F 83 16 126/66 94 Nasal Cannula 5 PG Care Time/CCT Total # of Minutes Spent Total Time Spent with Patient: Total time spent is greater than 50% in coordination of care (as documented) at patient's floor/unit and/or counseling patient: Coding Level of Care Code 79630 SUB INP/OBS CARE 2/35MIN Diagnoses Acute on chronic HFrEF (heart failure with reduced ejection fraction) I50.23 Urine retention R33.9 Acute on chronic respiratory failure with hypoxia J96.21 Symptomatic anemia D64.9 Paroxysmal atrial fibrillation I48.0 Chronic obstructive pulmonary disease J44.9 Type 2 diabetes mellitus, with long-term current use of insulin E11.9; Z79.4 Essential hypertension I10 Hypertension type: essential hypertension 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
--- NOTE | 2023-11-16 10:53 | XCELERA ---
[id number] \\[id number]
--- NOTE | 2023-11-16 11:11 | Gastrointestinal Consultation ---
Date of Consultation November 16, 2023 Assessment & Plan (1) Symptomatic anemia: Patient is an 83 yo male with acute CHF exacerbation. GI involved due to anemia on Eliquis. Patient has a longstanding history of anemia suspected to be due to small bowel AVMs as first diagnosed in 2010 on Video Capsule Endoscopy. He has seen Dr. Ruvalcaba for his intermittent acute drops in hemoglobin in the past and it was decided that in the absence of overt GI bleeding, the benefit did not outweigh the risks of repeating endoscopic intervention. We would agree with this again at this time. No plans for endoscopic intervention at present in the absence of overt GI bleeding and current CHF exacerbation. At this time, patient does not appear to be experiencing a variceal bleed. Would advise close monitoring of H/H and continuation of IV Protonix. When discharged he should remain on Protonix 40 mg BID indefinitely. Would recommend supportive treatment of his anemia and close monitoring of his H/H. His Eliquis appears to be on hold. Moving forward would need to weigh the risks vs benefits of chronic anticoagulation particularly if overtly bleeding or failing to maintain appropriate blood counts. Supervising Physician Co-Signing Physician Notes Agree with OCTAVIA Mcdonnell as above Interviewed and examined patient and agree with above Abd: Soft, NT, ND, +BS Continue current therapy and supportive care No plans for invasive GI testing at present. History of Present Illness Reason for Consultation: "GI bleed" Attending Physician: Larry Berkowitz MD History of Present Illness Patient is an 83 yo male with PMH of COPD, CHF, chronic hypoxic respiratory failure, BPH, DM2, pulmonary hypertension, AVM of small bowel, KATZ cirrhosis, esophageal varices, HLD, HTN, obesity, peripheral neuropathy, Afib on Eliquis, JAGDEEP, & CKD3 who is admitted in the ICU due to acute CHF exacerbation. GI has been consulted because patient is anemic with an H/H of 8.1./26.9. Patient has been evaluated for this issue by Dr. Ruvalcaba in the past when he was not experiencing an acute exacerbation of his CHF. During his office evaluation it was decided that based on his lack of overt bleeding, the benefits did not outweigh the risks of endoscopic evaluation. At the time, he was on PPI therapy and I do not currently see that he is taking a PPI at present. In the past, he has been diagnosed with cirrhosis based on imaging and has reportedly had small esophageal varices monitored by an outside GI. In 2010, he was also struggling with anemia and at that time he underwent a colonoscopy/EGD with a GI at [facility] in [place]. Findings indicated gastritis and hemorrhoids. He underwent a VCE with a GI at that time that noted small bowel AVMs. Throughout the years he has been managed supportively for his REYES with IV Venofer. His notes he recently received IV Venofer in the past 1 year. In terms of symptoms, patient has no overt GI bleeding at present. Hemoglobin was 12.6 in July 2023 though he was not volume overloaded at that time per PCP documentation. He denies hematemesis, melena, hematochezia. No abdominal pain. He notes SOB with exertion along with palpitations and a near syncopal event. BUN 28, Cr 1.36. He appears to be placed on IV Protonix & IV Octreotide by the primary team. There has been compliance issues suspected with Lasix. Allergies Allergy/AdvReac Type Severity Reaction Status Date / Time cheese Allergy Severe Hives Verified 11/15/23 19:28 Home Medications Medication Instructions Recorded Confirmed Type epinephrine 0.3 mg/0.3 mL 0.3 mg subcut .INJECT 0.3ML 12/25/18 11/15/23 History injection, auto-injector INTRAMU #1 ea pen needle, diabetic 32 gauge x #200 ea 11/25/20 11/10/23 Rx 5/32" (BD Ultra-Fine Lavinia Pen Needle) Portable Oxygen E0431 #2 ea 05/09/21 11/10/23 Rx cholecalciferol (vitamin D3) 25 5,000 unit PO DAILY 08/21/21 11/15/23 History mcg (1,000 unit) capsule FreeStyle Annette 14 Day Sensor #6 ea 01/13/22 11/10/23 Rx (flash glucose sensor) furosemide 40 mg tablet (Lasix) 40 mg PO DAILY #90 tabs 03/13/22 11/15/23 Rx fluticasone fur. 100 mcg-umeclid 1 inh inhalation DAILY #60 ea 02/01/23 11/15/23 Rx 62.5 mcg-vilant 25 mcg inhalat.powder (Trelegy Ellipta) insulin lispro 100 unit/mL See Rx Instructions subcut TID #90 03/31/23 11/15/23 Rx subcutaneous pen (Humalog KwikPen mL (U-100) Insulin) Oxygen Home E0424 1 ea .Route .COMPLEX 04/23/23 11/10/23 History miconazole nitrate 2 % topical 1 applic topical BID PRN rash #30 05/04/23 11/15/23 Rx cream grams apixaban 5 mg tablet (Eliquis) 5 mg PO BID #60 tabs 05/24/23 11/15/23 Rx losartan 100 mg tablet 100 mg PO QAM #90 tabs 07/22/23 11/15/23 Rx simvastatin 40 mg tablet 40 mg PO HS #90 tabs 07/22/23 11/15/23 Rx insulin glargine 100 unit/mL (3 45 unit (0.45 mL) subcut DAILY 90 07/30/23 11/15/23 Rx mL) subcutaneous pen (Basaglar days #45 mL KwikPen U-100 Insulin) metformin 1,000 mg tablet 1,000 mg PO BID #180 tabs 09/23/23 11/15/23 Rx dutasteride 0.5 mg capsule 0.5 mg PO DAILY #90 caps 10/20/23 11/15/23 Rx methenamine hippurate 1 gram tablet 1 g PO BID #180 tabs 10/20/23 11/15/23 Rx tamsulosin 0.4 mg capsule 0.4 mg PO DAILY #90 caps 10/20/23 11/15/23 Rx albuterol sulfate 90 mcg/actuation 2 puff inhalation QID PRN 10/25/23 11/15/23 Rx aerosol inhaler shortness of breath or wheezing #6.7 grams metoprolol succinate 50 mg 50 mg PO BID #180 tabs 11/11/23 11/15/23 Rx tablet,extended release 24 hr gabapentin 100 mg capsule 100 mg PO BID 11/15/23 11/15/23 History gabapentin 300 mg capsule 300 mg PO HS 11/15/23 11/15/23 History Patient History Medical History Chronic hypoxic respiratory failure, on home oxygen therapy COPD (chronic obstructive pulmonary disease) with chronic bronchitis Acute diastolic CHF (congestive heart failure), NYHA class 4 Diastolic CHF Pulmonary hypertension CHF (congestive heart failure) Iron deficiency Morbid obesity Chronic hypoxemic respiratory failure Emphysema lung Fibrotic lung diseases Abnormal liver CT Diabetes type 2, controlled Cerumen impaction Osteoarthritis Sleep apnea ON ABOVE LIST BUT PT DOES NOT HAVE Dyslipidemia Diabetic nephropathy associated with type 2 diabetes mellitus Carpal tunnel syndrome Acquired trigger finger of both ring fingers Seborrheic keratoses Exertional dyspnea 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 Chronic obstructive pulmonary disease WELL CONTROLLED> RARE INH USE Paroxysmal atrial fibrillation NO CARDIOVERSION> CONTROLLED WITH MEDS Hypertension Surgical History H/O foot surgery congenital deformity History of cataract surgery both eyes History of esophagogastroduodenoscopy (EGD) History of colonoscopy History of mandibular surgery REMOVED BENIGN TUMOR YRS AGO History of total knee replacement LEFT History of appendectomy Previous back surgery X2 LUMBAR> History of wisdom tooth extraction History of hip replacement Family History Father Cancer brain and lung Mother COPD (chronic obstructive pulmonary disease) Denies family history of Ovarian cancer Prostate cancer Myocardial infarction Breast cancer Colorectal cancer Social History Smoking Status: Former smoker Tobacco Type: Cigarettes Age Started Using Tobacco: 18; Age Quit Using Tobacco: 50; packs per day: 4; Second Hand Exposure: No; Do You Dip or Chew Tobacco: No; Hx Alcohol Use: Yes Alcohol type: beer Hx Substance Use: No Preferred Language: Ethiopian Communication Ability: Effective Hearing Ability: Use of Hearing Aid Turbine Subassembler Required: No Beliefs That Will Affect Care: None marital status: Current Living Situation: Spouse current occupational status: retired 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 How many Children do You have: 6 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 Safe at Home: Yes Childhood Exposure to Second-Hand Smoke: Yes Diet: regular caffeine: Yes (kittitian tea) during the past year weight has: remained stable Dental Care, Regularly: No Physical Activity Frequency: Daily Physical Activity Frequency Comment: Walking, housework/cleaning Seatbelt Use: always Sunscreen Use: No Assistive Devices: Oxygen - Continuous, Scooter/Electric Scooter and Walker Review of Systems Constitutional: no fever and no chills Respiratory: + cough, + dyspnea and + dyspnea on exer tion Gastrointestinal: no coffee ground emesis, no hematemesis, no change in bowel habits, no blood in stools and no melena Psychiatric: no problem reported Physical Exam Constitutional: well developed Respiratory: no respiratory distress Cardiovascular: Rate/Rhythm: regular rate Gastrointestinal (Abdomen): normal bowel sounds, soft, nontender, no hepatosplenomegaly Psychiatric: Orientation: alert and oriented x 3 Results & Data Vital Signs (Past 12 Hours) Vital Signs Temp Pulse Resp BP Pulse Ox O2 Del Method O2 Flow Rate 11/16/23 08:00 Nasal Cannula 5 11/16/23 08:00 36.4 C L 72 12 103/68 95 Nasal Cannula 5 11/16/23 04:41 36.6 C 80 16 144/70 H 94 Nasal Cannula 5 11/15/23 23:36 Nasal Cannula 5 11/15/23 23:30 36.6 C 83 16 126/66 94 Nasal Cannula 5 PG Care Time/CCT Total # of Minutes Spent Total Time Spent with Patient: Total time spent is greater than 50% in coordination of care (as documented) at patient's floor/unit and/or counseling patient: Coding Level of Care Code 07695 INT INP/OBS CARE 3/75MIN Diagnoses Symptomatic anemia D64.9
--- NOTE | 2023-11-16 12:44 | Electrocardiogram Report ---
Test Reason : Blood Pressure : / mmHG Vent. Rate : 094 BPM Atrial Rate : 000 BPM P-R Int : 000 ms QRS Dur : 076 ms QT Int : 370 ms P-R-T Axes : 000 013 -30 degrees QTc Int : 462 ms Atrial fibrillation Low voltage QRS Abnormal ECG When compared with ECG of 24-JUN-2020 10:37, Atrial fibrillation has replaced Sinus rhythm Nonspecific T wave abnormality, worse in Inferior leads Confirmed by Pollo Dunn ([id number]) on 11/16/2023 12:44:01 PM Referred By: Confirmed By:Pollo Dunn
--- NOTE | 2023-11-16 12:51 | Heart Failure Consultation ---
Date of Consultation November 16, 2023 Assessment & Plan (1) (HFpEF) heart failure with preserved ejection fraction: (2) Acute blood loss anemia: (3) COPD (chronic obstructive pulmonary disease) with chronic bronchitis: (4) Right ventricular failure: (5) Pulmonary hypertension: (6) Morbid obesity: (7) 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: (8) CKD stage 3 secondary to diabetes: (9) JAGDEEP (obstructive sleep apnea): (10) Paroxysmal atrial fibrillation: Plan HFpEF/Right ventricular dysfunction: Patient has known RV dysfunction from echocardiogram in 2018. RV not well visualized on today's echo. LV function improved from previous. CXR without pulmonary edema. BNP 440. He is hypervolemic on exam. Suspect symptoms likely multifactorial- including anemia, urinary retention, cirrhosis, COPD/emphysema, fibrotic lung disease, obesity, deconditioning, and CHF. Patient requires supplemental O2. Weight was trending up prior to admission. Continue to further optimizing his volume status. Continue Lasix 40 mg IV daily. He's responding well to this dose. Continue to aim for 1-2 L negative per day. Spironolactone 25 mg daily initiated on admission. Could also consider SGLT2i however previous documentation notes frequent UTIs- may not be ideal candidate. Continue to monitor renal function and electrolytes. Recommend daily standing weights while hospitalized. Strict I&O. He was provided with a home scale in the past. Recommend low sodium diet, less than 2,000 mg daily. Atrial fibrillation:Rate is well controlled. Eliquis is on hold due to potential GI bleeding. Hypertension: Currently well controlled. Continue current regimen. COPD/fibrotic lung disease: Follows with Dr. Dyer. Disposition: I will be away from the hospital tomorrow. Please call Dr. Dunn with any additional questions. Anticipate close outpatient follow up with the heart failure program. History of Present Illness Attending Physician: Larry Berkowitz MD History of Present Illness Mr. Olson is a 83 year old male with history of COPD, CKD, DM, fibrotic lung disease, HTN, obesity, paroxysmal atrial fibrillation, and JAGDEEP. Dr. 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 His last visit was with the heart failure program was February 2022. He has been routinely following with Dr. Dunn in [facility]. Recent cardiac studies: 1. 07/18/2018 Echo: Sinus rhythm, EF 65-70%. No RMWA. Mild MR. RV mild to moderately dilated. RV sustolic function mildly reduced. Flattened septum consistent with RV overload. IVC dilated. 2. 02/20/22 Echo: Normal LV size. EF 45-50%. Mild global hypokinesis. Moderate concentric LVH. RV not well visualized but mildly dilated with normal function. Severe left atrial dilation. No valvular abnormalities. Poor image quality. 3. 11/16/23 Echo: LV systolic function is normal. No RWMA. Moderate concentric LVH. EF 55-60%. Mild MR. Mild to moderate TR. He was initially evaluated on 02/10/22 with the heart failure program. He was slightly hypervolemic with history of RV failure. He was initiated on Lasix 40 mg daily. Previous dry weight 277 lb. Patient had recent outpatient evaluation Dr. Dyer. He continued to complain of ongoing dyspnea on exertion. Suspected possible CHF exacerbation. He was referred to the ED for admission. Heart failure program referral was placed at that time. On admission troponin was negative. Rectal was heme positive. Hemoglobin drop from 12 to 8 in 3 months. No leukocytosis. BNP 440. CXR without pulmonary congestion. He was treated with IV Lasix with good response (net negative 3L). Also initiated on Spironolactone 25 mg. Echocardiogram with preserved EF, no wall motion abnormalities. Also noted to have urinary retention which may have been contributing to volume overload. Patient reports feeling slightly improved today. He continues to require supplemental O2. There is mild lower extremity edema. He notes increased abdominal distention- this may be contributing to his dyspnea and early satiety. He has been weighing himself at home. Notes 8-9+ lb gain in recent days. He was taking Lasix 20 mg daily (has taken 40 mg daily in the past). He does not typically follow a low sodium diet at home- continues to use table salt. Allergies Allergy/AdvReac Type Severity Reaction Status Date / Time cheese Allergy Severe Hives Verified 11/15/23 19:28 Home Medications Medication Instructions Recorded Confirmed Type epinephrine 0.3 mg/0.3 mL 0.3 mg subcut .INJECT 0.3ML 12/25/18 11/15/23 History injection, auto-injector INTRAMU #1 ea pen needle, diabetic 32 gauge x #200 ea 11/25/20 11/10/23 Rx 5/32" (BD Ultra-Fine Lavinia Pen Needle) Portable Oxygen E0431 #2 ea 05/09/21 11/10/23 Rx cholecalciferol (vitamin D3) 25 5,000 unit PO DAILY 08/21/21 11/15/23 History mcg (1,000 unit) capsule FreeStyle Annette 14 Day Sensor #6 ea 01/13/22 11/10/23 Rx (flash glucose sensor) furosemide 40 mg tablet (Lasix) 40 mg PO DAILY #90 tabs 03/13/22 11/15/23 Rx fluticasone fur. 100 mcg-umeclid 1 inh inhalation DAILY #60 ea 02/01/23 11/15/23 Rx 62.5 mcg-vilant 25 mcg inhalat.powder (Trelegy Ellipta) insulin lispro 100 unit/mL See Rx Instructions subcut TID #90 03/31/23 11/15/23 Rx subcutaneous pen (Humalog KwikPen mL (U-100) Insulin) Oxygen Home E0424 1 ea .Route .COMPLEX 04/23/23 11/10/23 History miconazole nitrate 2 % topical 1 applic topical BID PRN rash #30 05/04/23 11/15/23 Rx cream grams apixaban 5 mg tablet (Eliquis) 5 mg PO BID #60 tabs 05/24/23 11/15/23 Rx losartan 100 mg tablet 100 mg PO QAM #90 tabs 07/22/23 11/15/23 Rx simvastatin 40 mg tablet 40 mg PO HS #90 tabs 07/22/23 11/15/23 Rx insulin glargine 100 unit/mL (3 45 unit (0.45 mL) subcut DAILY 90 07/30/23 11/15/23 Rx mL) subcutaneous pen (Basaglar days #45 mL KwikPen U-100 Insulin) metformin 1,000 mg tablet 1,000 mg PO BID #180 tabs 09/23/23 11/15/23 Rx dutasteride 0.5 mg capsule 0.5 mg PO DAILY #90 caps 10/20/23 11/15/23 Rx methenamine hippurate 1 gram tablet 1 g PO BID #180 tabs 10/20/23 11/15/23 Rx tamsulosin 0.4 mg capsule 0.4 mg PO DAILY #90 caps 10/20/23 11/15/23 Rx albuterol sulfate 90 mcg/actuation 2 puff inhalation QID PRN 10/25/23 11/15/23 Rx aerosol inhaler shortness of breath or wheezing #6.7 grams metoprolol succinate 50 mg 50 mg PO BID #180 tabs 11/11/23 11/15/23 Rx tablet,extended release 24 hr gabapentin 100 mg capsule 100 mg PO BID 11/15/23 11/15/23 History gabapentin 300 mg capsule 300 mg PO HS 11/15/23 11/15/23 History Patient History Medical History (Updated 11/16/23 @ 15:30 by Ev Fraser PA-C) Chronic hypoxic respiratory failure, on home oxygen therapy COPD (chronic obstructive pulmonary disease) with chronic bronchitis Pulmonary hypertension Iron deficiency Morbid obesity Chronic hypoxemic respiratory failure Emphysema lung Fibrotic lung diseases Abnormal liver CT Diabetes type 2, controlled Cerumen impaction Osteoarthritis Sleep apnea ON ABOVE LIST BUT PT DOES NOT HAVE Dyslipidemia Diabetic nephropathy associated with type 2 diabetes mellitus Carpal tunnel syndrome Acquired trigger finger of both ring fingers Seborrheic keratoses Exertional dyspnea 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 Chronic obstructive pulmonary disease WELL CONTROLLED> RARE INH USE Paroxysmal atrial fibrillation NO CARDIOVERSION> CONTROLLED WITH MEDS Hypertension Surgical History H/O foot surgery congenital deformity History of cataract surgery both eyes History of esophagogastroduodenoscopy (EGD) History of colonoscopy History of mandibular surgery REMOVED BENIGN TUMOR YRS AGO History of total knee replacement LEFT History of appendectomy Previous back surgery X2 LUMBAR> History of wisdom tooth extraction History of hip replacement Family History Father Cancer brain and lung Mother COPD (chronic obstructive pulmonary disease) Denies family history of Ovarian cancer Prostate cancer Myocardial infarction Breast cancer Colorectal cancer Social History Smoking Status: Former smoker Tobacco Type: Cigarettes Age Started Using Tobacco: 18; Age Quit Using Tobacco: 50; packs per day: 4; Second Hand Exposure: No; Do You Dip or Chew Tobacco: No; Hx Alcohol Use: Yes Alcohol type: beer Hx Substance Use: No Preferred Language: Sammarinese Communication Ability: Effective Hearing Ability: Use of Hearing Aid Real Estate Associate Required: No Beliefs That Will Affect Care: None marital status: Current Living Situation: Spouse current occupational status: retired 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 Supplemental oxygen via nasal cannula HEENT: Head is atraumatic and normocephalic. EOMs intact. Sclera non-icteric. Face is symmetric Neck: No appreciable JVD but difficult exam given thick neck Pulmonary: Normal respiratory effort, clear to auscultation throughout Cardiac: Regular rate and rhythm, normal S1 and S2, no gallops, no rubs, no murmurs Extremities: 1+ bilateral lower extremity edema. No clubbing or cyanosis. 2+ radial pulses Abdomen: Normal bowel sounds, soft, non-tender, no abdominal masses palpated Skin: Normal skin color, turgor, and pigmentation. No rash or skin lesions Neurological: Oriented to person, place, and time Results & Data Vital Signs (Past 12 Hours) Vital Signs Temp Pulse Resp BP Pulse Ox O2 Del Method O2 Flow Rate 11/16/23 08:00 Nasal Cannula 5 11/16/23 08:00 97.5 F L 72 12 103/68 95 Nasal Cannula 5 11/16/23 04:41 97.9 F 80 16 144/70 H 94 Nasal Cannula 5 Heart Failure Data/Metrics Heart Failure Type: HFpEF (EF > 50%) Evidenced Based Beta Dee Therapy Beta Dee Therapy: Yes Beta Dee Name: Metoprolol Succinate DEMI/ARB/ARNI Therapy DEMI/ARB/ARNI Therapy: Yes DEMI/ARB/ARNI Name: Losartan Aldosterone Antagonist Therapy Aldosterone Antagonist Therapy: Yes Aldosterone Antagonist Name: Spironolactone Coding Level of Care Code 37364 INT INP/OBS CARE 3/75MIN Diagnoses (HFpEF) heart failure with preserved ejection fraction I50.30 Acute blood loss anemia D62 COPD (chronic obstructive pulmonary disease) with chronic bronchitis J44.89 Right ventricular failure I50.810 Pulmonary hypertension I27.20 Morbid obesity E66.01 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
[2023-11-16] MEDS: LANTUS PER UNIT CHARGE SC SCH (13:33)
--- NOTE | 2023-11-16 15:18 | Pharmacy Report ---
Pharmacy Glycemic Short Note 2 - Date of Service November 16, 2023 - Glycemic Short BSG Results (Last 24 hours): 11/15/23 11/15/23 11/15/23 15:55 16:04 21:56 Glucose 97 POC Glucose 100 H POC Glucose (other) 95 11/16/23 11/16/23 11/16/23 04:40 07:46 12:18 Glucose 103 H POC Glucose 105 H 113 H POC Glucose (other) OUTPATIENT ANTIDIABETIC REGIMEN: * Lantus 45 units SC daily * Humalog 18 units SC AC + SSI * HbA1c: 7.1% (11/16/23) ASSESSMENT: * 83 yo M admitted on 11/15/23 secondary to possible GI bleed vs symptomatic anemia. Pharmacy has been consulted to assist with inpatient glycemic management. Patient is an insulin-dependent Type 2 diabetic as an outpatient. Please refer to outpatient regimen and most recent HbA1c above. * Did take 45 units of basal prior to admission yesterday and has been NPO since. BSGs last night were 95-100 mg/dL. Ordered bolus insulin only based on weight/stress of 2. No units were required. * Fasting BSG at 105 mg/dL this AM. A clear liquid diet has been ordered which is not very carb heavy. Will reduce home basal dose by more than 50% for today and see how patient tolerates. No change to Novolog. * Ordered octreotide and pantoprazole drips as well as ceftriaxone. PLAN FOR INPATIENT GLYCEMIC CONTROL: * Basal insulin * Lantus 20 units SC x 1 * Bolus insulin * NovoLog per scale ACHS or Q6hrs while NPO * Goal Range: Low 110 mg/dL - High 140 mg/dL * Correction Factor: 20 mg/dL/unit * Nutritional / Prandial insulin per carb ratio of 1 unit per 6 grams CHO consumed
[2023-11-16] MEDS ORDERED: Nursing to Pharmacy Communication SCH (16:00)
[2023-11-16 16:50] LABS: Hematocrit (blood only) 30.2 % (42.0-52.0); Hemoglobin 9.4 g/dl (14.0-18.0)
[2023-11-16] MEDS: SIMVASTATIN 40 MG TAB PO SCH (21:07)
[2023-11-16 23:08] LABS: Hematocrit (blood only) 28.2 % (42.0-52.0); Hemoglobin 8.7 g/dl (14.0-18.0)
--- NOTE | 2023-11-17 00:45 | Communication Note ---
Date of Service: November 17, 2023 Notified by nursing that pt was hypotensive; 80s/50s. Admitted for acute exacerbation HFpEF, net negative 5.5L since admission with diuresis. Evaluated pt at bedside. He states that he is asymptomatic; denies chest pain, dyspnea, lightheadedness, dizziness. Lungs clear to auscultation B/L and trace LE edema. Likely hypovolemic given significant diuresis in past 2 days. Will cautiously given fluid- s/p 250ml bolus with improvement in blood pressure.
[2023-11-17] MEDS: SODIUM CHLORIDE 0.9% 250 ML IV ONE (00:46)
[2023-11-17 09:08] LABS: Hematocrit (blood only) 27.4 % (42.0-52.0); Hemoglobin 8.3 g/dl (14.0-18.0); Mean Corpuscular Hemoglobin 28.7 pg (25.0-34.0); Mean Corpuscular Hgb Conc 30.3 g/dL (32.0-36.0); Mean Corpuscular Volume 94.8 fL (80.0-100.0); Mean Platelet Volume 9.7 fL (9.4-12.4); Platelet Count 246 K/uL (130-400); RDW Coefficient of Variation 15.1 % (11.5-14.5); RDW Standard Deviation 52.3 fL (36.4-46.3); Red Blood Count 2.89 M/uL (4.70-6.10); White Blood Count 10.58 K/ul (4.8-10.8)
[2023-11-17 09:26] LABS: BUN Creatinine Ratio 16.1 (10-20); Creatinine Clr Calc Pharmacy 45.8 ml/min; Est GFR (African American) 43.5 ml/min; Est GFR (Non-African American) 37.5 ml/min; Potassium 4.3 mmol/L (3.5-5.1)
--- NOTE | 2023-11-17 10:56 | Pharmacy Report ---
Pharmacy Glycemic Short Note 2 - Date of Service November 17, 2023 - Glycemic Short BSG Results (Last 24 hours): 11/16/23 11/16/23 11/16/23 12:18 16:11 20:44 Glucose POC Glucose 113 H 103 H 189 H 11/17/23 11/17/23 07:24 08:29 Glucose 146 H POC Glucose 97 OUTPATIENT ANTIDIABETIC REGIMEN: * Lantus 45 units SC daily * Humalog 18 units SC AC + SSI * HbA1c: 7.1% (11/16/23) ASSESSMENT: 11/16: * Se received 23 units of insulin yesterday, 20 basal + 3 bolus. BSGs were: 659-033-098-189 mg/dL. * Fasting BSG was 97 mg/dL this AM. Discussed with RN and patient did already eat breakfast today which he did not eat anything yesterday. Therefore, okay with continuing current basal dose despite fasting being below goal. * No change necessary to bolus regimen. * Remains on octreotide and pantoprazole drips. Ceftriaxone continued as well. SCr still climbing but good urine output while on Lasix. 11/15: * 83 yo M admitted on 11/15/23 secondary to possible GI bleed vs symptomatic anemia. Pharmacy has been consulted to assist with inpatient glycemic management. Patient is an insulin-dependent Type 2 diabetic as an outpatient. Please refer to outpatient regimen and most recent HbA1c above. * Did take 45 units of basal prior to admission yesterday and has been NPO since. BSGs last night were 95-100 mg/dL. Ordered bolus insulin only based on weight/stress of 2. No units were required. * Fasting BSG at 105 mg/dL this AM. A clear liquid diet has been ordered which is not very carb heavy. Will reduce home basal dose by more than 50% for today and see how patient tolerates. No change to Novolog. * Ordered octreotide and pantoprazole drips as well as ceftriaxone. PLAN FOR INPATIENT GLYCEMIC CONTROL: * Basal insulin * Lantus 20 units SC daily * Bolus insulin * NovoLog per scale ACHS or Q6hrs while NPO * Goal Range: Low 110 mg/dL - High 140 mg/dL * Correction Factor: 20 mg/dL/unit * Nutritional / Prandial insulin per carb ratio of 1 unit per 6 grams CHO consumed
--- NOTE | 2023-11-17 11:20 | Hospitalist Progress Note ---
Date of Service November 17, 2023 Assessment & Plan (1) Acute on chronic HFrEF (heart failure with reduced ejection fraction): Plan: Acute on chronic heart failure with reduced ejection fraction Reported worsening shortness of breath, which prompted his composition instructor to send him from the clinic BNP 400 2D echo showed preserved ejection fraction, 55 to 60%, with mild to moderate tricuspid regurgitation Patient has been making good urine, is 2-1/2 L negative fluid balance over 24 hours Continue IV Lasix 40 mg daily Monitor input and output, daily weight Continue low-sodium diet Continue spironolactone 25mg PO daily and monitor potassium closely Continue metoprolol succinate appreciate cardiology (2) Urine retention: Plan: Now resolved following insertion of Leong catheter Known BPH with tamsulosin and dutasteride, continue Consider trial without leong once more ambulatory Follow up with urology as outpatient (3) Acute on chronic respiratory failure with hypoxia: Plan: Aim O2 sat 88-92% Baseline 3LPM O2 Some improvement in shortness of breath following diuresis (4) Symptomatic anemia: Plan: Suspected acute GI bleed with acute blood loss anemia - Patient with history of GI bleed Iron stidues, B12, folate, retic count, all have been reviewed, LDH, FOB +ve in the ER Started on Pantoprazole IV bolus and drip, add octreotide and ceftriaxone in setting of liver cirrhosis q6h H&H Initial transfusion threshold < 7 but if remains symptomatic after diuresis may need to increase to < 9 Consult gastroenterology (5) Paroxysmal atrial fibrillation: Plan: Hold Eliquis due to GI bleed Continue rate control with metoprolol succinate (6) Chronic obstructive pulmonary disease: Plan: No acute exacerbation suspected Continue routine inhalers (7) Type 2 diabetes mellitus, with long-term current use of insulin: Plan: Hemoglobin A1C 7.5 in February 2023, (8) Hypertension: Plan: Continue metoprolol succinate, losartan as long as BP allows Add Lasix and spironolactone as above (9) 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: Plan: CT showed evidence of mild ascites INR and Plt normal (10) BPH loc w urin obs/LUTS: Plan: As above (11) Acute GI bleeding: (12) Acute blood loss anemia: Plan VTE Prophylaxis -hemoglobin stable, will resume Eliquis Diet - clear liquids, T2DM, heart healthy, low Na, fluids restrict Disposition -continue to monitor in the hospital Admission and Anticipated Discharge Date Admission Date: November 15, 2023 Subjective Patient seen and examined, shortness of breath this is a much improved and also leg swelling Review of Systems Review of Systems: All systems reviewed are negative, apart from the ones contained in the history. Physical Exam Physical Exam: The patient is awake, alert and oriented 3, well developed and well nourished, normocephalic and atraumatic, lying in bed and in no acute distress. HEENT--PERRL, EOMI, mucous membranes and oropharynx mildly dry Neck--supple. No JVD. No bruits. Thyroid normal, trachea midline, no adenopathy. Heart--normal S1 and S2. No murmurs, rubs or gallops. Lungs--reduced air entry on auscultation, some respiratory distress Abdomen--normal bowel sounds and soft. Extremities--trace bilateral leg edema. Dermatologic--normal skin turgor, normal color, no abnormal lymph nodes, no rash. Neurologic--cranial nerves II through XII grossly intact. Rheumatologic--normal range of motion. Psychiatric--normal affect. Results & Data Results & Data Vital Signs (Past 12 Hours) Vital Signs Temp Pulse Resp BP BP Pulse Ox O2 Del Method 11/17/23 10:00 94 H 28 H 91 11/17/23 08:00 96 H 27 H 92 11/17/23 07:45 98.6 F 20 108/85 93 Nasal Cannula 11/17/23 07:32 99 H 18 93 Nasal Cannula 11/17/23 07:32 104/85 11/17/23 07:25 Nasal Cannula 11/17/23 07:00 97 H 21 95 11/17/23 03:40 96 H 18 94 11/17/23 03:40 98.1 F 92/59 L 11/17/23 00:07 90 O2 Flow Rate 11/17/23 10:00 11/17/23 08:00 11/17/23 07:45 11/17/23 07:32 5 11/17/23 07:32 11/17/23 07:25 5 11/17/23 07:00 11/17/23 03:40 11/17/23 03:40 11/17/23 00:07 PG Care Time/CCT Total # of Minutes Spent Total Time Spent with Patient: Total time spent is greater than 50% in coordination of care (as documented) at patient's floor/unit and/or counseling patient: Coding Level of Care Code 16698 SUB INP/OBS CARE 2/35MIN Diagnoses Acute on chronic HFrEF (heart failure with reduced ejection fraction) I50.23 Urine retention R33.9 Acute on chronic respiratory failure with hypoxia J96.21 Symptomatic anemia D64.9 Paroxysmal atrial fibrillation I48.0 Chronic obstructive pulmonary disease J44.9 Type 2 diabetes mellitus, with long-term current use of insulin E11.9; Z79.4 Essential hypertension I10 Hypertension type: essential hypertension 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
[2023-11-17] MEDS ORDERED: APIXABAN 5 MG TABLET PO SCH (21:00)
[2023-11-17] MEDS: APIXABAN 2.5 MG TAB PO SCH (21:06)
[2023-11-17] MEDS ORDERED: Nursing to Pharmacy Communication SCH (23:45)
[2023-11-18 06:28] LABS: BUN Creatinine Ratio 18.9 (10-20); Calcium 8.4 mg/dl (8.6-10.3); Creatinine Clr Calc Pharmacy 45.5 ml/min; Est GFR (African American) 43.2 ml/min; Est GFR (Non-African American) 37.3 ml/min; Potassium 4.2 mmol/L (3.5-5.1)
[2023-11-18 10:01] LABS: Basophils # (auto) 0.06 K/uL (0.00-0.20); Basophils % (auto) 0.5 %; Eosinophils # (auto) 0.12 K/uL (0.00-0.50); Hematocrit (blood only) 28.4 % (42.0-52.0); Hemoglobin 8.7 g/dl (14.0-18.0); Immature Granulocytes # (auto) 0.04 K/uL (0.01-0.20); Immature Granulocytes % (auto) 0.3 %; Lymphocytes # (auto) 2.05 K/uL (1.20-3.40); Lymphocytes % (auto) 16.7 %; Mean Corpuscular Hemoglobin 28.8 pg (25.0-34.0); Mean Corpuscular Hgb Conc 30.6 g/dL (32.0-36.0); Mean Platelet Volume 10.1 fL (9.4-12.4); Monocytes # (auto) 1.01 K/uL (0.11-0.59); Monocytes % (auto) 8.2 %; Neutrophils % (auto) 73.3 %; Platelet Count 264 K/uL (130-400); RDW Coefficient of Variation 15.2 % (11.5-14.5); RDW Standard Deviation 52.5 fL (36.4-46.3); Red Blood Count 3.02 M/uL (4.70-6.10); White Blood Count 12.28 K/ul (4.8-10.8)
--- NOTE | 2023-11-18 12:46 | Hospitalist Progress Note ---
Date of Service November 18, 2023 Assessment & Plan (1) Acute on chronic HFrEF (heart failure with reduced ejection fraction): Plan: Acute on chronic heart failure with reduced ejection fraction Reported worsening shortness of breath, which prompted his credit union teller to send him from the clinic BNP 400 2D echo showed preserved ejection fraction, 55 to 60%, with mild to moderate tricuspid regurgitation Patient has been making good urine Continue IV Lasix 40 mg daily Monitor input and output, daily weight Continue low-sodium diet Continue spironolactone 25mg PO daily and monitor potassium closely Continue metoprolol succinate appreciate cardiology (2) Urine retention: Plan: Now resolved following insertion of Majano catheter Known BPH with tamsulosin and dutasteride, continue Patient said he wanted Majano catheter removed, he wanted to try since he has been more ambulatory Follow up with urology as outpatient (3) Acute on chronic respiratory failure with hypoxia: Plan: Aim O2 sat 88-92% Baseline 3LPM O2 Some improvement in shortness of breath following diuresis (4) Symptomatic anemia: Plan: Suspected acute GI bleed with acute blood loss anemia - Patient with history of GI bleed Iron stidues, B12, folate, retic count, all have been reviewed, LDH, FOB +ve in the ER Started on Pantoprazole IV bolus and drip, add octreotide and ceftriaxone in setting of liver cirrhosis q6h H&H Initial transfusion threshold < 7 but if remains symptomatic after diuresis may need to increase to < 9 Consult gastroenterology (5) Paroxysmal atrial fibrillation: Plan: Hold Eliquis due to GI bleed Continue rate control with metoprolol succinate (6) Chronic obstructive pulmonary disease: Plan: No acute exacerbation suspected Continue routine inhalers (7) Type 2 diabetes mellitus, with long-term current use of insulin: Plan: Hemoglobin A1C 7.5 in February 2023, (8) Hypertension: Plan: Continue metoprolol succinate, losartan as long as BP allows Add Lasix and spironolactone as above (9) 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 Discharge in next 24 to 48 hours Admission and Anticipated Discharge Date Admission Date: November 15, 2023 Subjective Patient seen and examined, shortness of breath this is a much improved and also leg swelling, said he wanted Majano catheter removed Review of Systems Review of Systems: All systems reviewed are negative, apart from the ones contained in the history. Physical Exam Physical Exam: The patient is awake, alert and oriented 3, well developed and well nourished, normocephalic and atraumatic, lying in bed and in no acute distress. HEENT--PERRL, EOMI, mucous membranes and oropharynx mildly dry Neck--supple. No JVD. No bruits. Thyroid normal, trachea midline, no adenopathy. Heart--normal S1 and S2. No murmurs, rubs or gallops. Lungs--reduced air entry on auscultation, some respiratory distress Abdomen--normal bowel sounds and soft. Extremities--trace bilateral leg edema. Dermatologic--normal skin turgor, normal color, no abnormal lymph nodes, no rash. Neurologic--cranial nerves II through XII grossly intact. Rheumatologic--normal range of motion. Psychiatric--normal affect. Results & Data Results & Data Vital Signs (Past 12 Hours) Vital Signs Temp Pulse Pulse Resp BP Pulse Ox O2 Del Method 11/18/23 11:00 98.2 F 104 H 22 111/70 91 Nasal Cannula 11/18/23 08:00 Nasal Cannula 11/18/23 07:34 83 11/18/23 07:00 98.4 F 89 22 113/75 95 Nasal Cannula 11/18/23 03:22 99.0 F 90 18 118/73 95 Nasal Cannula O2 Flow Rate 11/18/23 11:00 11/18/23 08:00 4 11/18/23 07:34 11/18/23 07:00 4 11/18/23 03:22 4 PG Care Time/CCT Total # of Minutes Spent Total Time Spent with Patient: Total time spent is greater than 50% in coordination of care (as documented) at patient's floor/unit and/or counseling patient: Coding Level of Care Code 88412 SUB INP/OBS CARE 2/35MIN Diagnoses Acute on chronic HFrEF (heart failure with reduced ejection fraction) I50.23 Urine retention R33.9 Acute on chronic respiratory failure with hypoxia J96.21 Symptomatic anemia D64.9 Paroxysmal atrial fibrillation I48.0 Chronic obstructive pulmonary disease J44.9 Type 2 diabetes mellitus, with long-term current use of insulin E11.9; Z79.4 Essential hypertension I10 Hypertension type: essential hypertension 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
--- NOTE | 2023-11-18 15:17 | Cardiology Progress Note ---
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 RV not well visualized on today's echo. LV function improved from previous. CXR without pulmonary edema. BNP 440. He is likely near euvolemic but has difficult exam. Suspect symptoms likely multifactorial- including anemia, urinary retention, cirrhosis, COPD/emphysema, fibrotic lung disease, obesity, deconditioning, and CHF. Patient requires supplemental O2. Weight was trending up prior to admission. Continue to further optimizing his volume status. Given his hypotension and azotemia can likely transition to PO Lasix starting tomorrow. Would recommend Lasix 40 mg daily on discharge. Spironolactone 25 mg daily initiated on admission. Could also consider SGLT2i however previous documentation notes frequent UTIs- may not be ideal candidate. Continue to monitor renal function and electrolytes. Recommend daily standing weights while hospitalized. Strict I&O. He was provided with a home scale in the past. Recommend low sodium diet, less than 2,000 mg daily. Atrial fibrillation:Rate is well controlled. Eliquis is on hold due to potential GI bleeding. Hypertension: Currently well controlled. Continue current regimen. COPD/fibrotic lung disease: Follows with Dr. Dyer. Disposition: Will continue to follow during hospitalization. Anticipate close outpatient follow up with the heart failure program. Admission and Anticipated Discharge Date Admission Date: November 15, 2023 Subjective Patient reports feeling well today. He is sitting in the chair. His breathing is improving. He has minimal edema. He had asymptomatic hypotension previous night- treated with small 250 ml bolus. He's net negative 6.8 L for the admission. Weight 281 lb per bed scale. He remains hypotensive. Creatinine has increased. He denies chest pain ,cough, palpitations. Physical Exam Physical Exam: Constitutional: Alert, oriented, in no acute distress. Supplemental oxygen via nasal cannula HEENT: Head is atraumatic and normocephalic. EOMs intact. Sclera non-icteric. Face is symmetric Neck: No appreciable JVD but difficult exam given thick neck Pulmonary: Normal respiratory effort, clear to auscultation throughout Cardiac: Regular rate and rhythm, normal S1 and S2, no gallops, no rubs, no murmurs Extremities: Trace bilateral lower extremity edema. No clubbing or cyanosis. 2+ radial pulses Abdomen: Normal bowel sounds, soft, non-tender, no abdominal masses palpated Skin: Normal skin color, turgor, and pigmentation. No rash or skin lesions Neurological: Oriented to person, place, and time Results & Data Vital Signs (Past 12 Hours) Vital Signs Temp Pulse Pulse Resp BP Pulse Ox Pulse Ox 11/18/23 15:12 97.3 F L 83 20 90/57 L 96 11/18/23 14:21 90 11/18/23 11:00 98.2 F 104 H 22 111/70 91 11/18/23 08:00 11/18/23 07:34 83 11/18/23 07:00 98.4 F 89 22 113/75 95 11/18/23 03:22 99.0 F 90 18 118/73 95 Pulse Ox Pulse Ox Pulse Ox O2 Del Method O2 Flow Rate O2 Flow Rate O2 Flow Rate 11/18/23 15:12 Nasal Cannula 11/18/23 14:21 93 94 78 L 6 4 11/18/23 11:00 Nasal Cannula 11/18/23 08:00 Nasal Cannula 4 11/18/23 07:34 11/18/23 07:00 Nasal Cannula 4 11/18/23 03:22 Nasal Cannula 4 O2 Flow Rate O2 Flow Rate 11/18/23 15:12 11/18/23 14:21 4 4 11/18/23 11:00 11/18/23 08:00 11/18/23 07:34 11/18/23 07:00 11/18/23 03:22 PG Care Time/CCT Total # of Minutes Spent Total Time Spent with Patient: Total time spent is greater than 50% in coordination of care (as documented) at patient's floor/unit and/or counseling patient: Coding Level of Care Code 49738 SUB INP/OBS CARE 3/50MIN Diagnoses (HFpEF) heart failure with preserved ejection fraction I50.30 Acute blood loss anemia D62 COPD (chronic obstructive pulmonary disease) with chronic bronchitis J44.89 Right ventricular failure I50.810 Pulmonary hypertension I27.20 Morbid obesity E66.01 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
[2023-11-19 07:04] LABS: BUN Creatinine Ratio 19.4 (10-20); Calcium 8.2 mg/dl (8.6-10.3); Creatinine Clr Calc Pharmacy 41.1 ml/min; Est GFR (African American) 38.5 ml/min; Est GFR (Non-African American) 33.2 ml/min; Potassium 4.3 mmol/L (3.5-5.1)
[2023-11-19] MEDS: LANTUS PER UNIT CHARGE SC SCH (08:46)
[2023-11-19] MEDS: INSULIN ASPART PER UNIT CHARGE SC SCH ×2 (08:46→12:46)
[2023-11-19] MEDS: FUROSEMIDE 40 MG TAB PO SCH (10:46)
[2023-11-19] MEDS: POLYETHYLENE (MIRALAX) 17 GM PACK PO SCH (10:46)
[2023-11-19] MEDS ORDERED: SODIUM CHLORIDE 0.65% NA SOLN 45 ML (OCEAN) PRN (10:52)
--- NOTE | 2023-11-19 12:48 | Pharmacy Report ---
Pharmacy Glycemic Short Note 2 - Date of Service November 19, 2023 - Glycemic Short BSG Results (Last 24 hours): 11/18/23 11/18/23 11/18/23 16:31 17:21 17:36 Glucose POC Glucose 72 61 L* 84 11/18/23 11/19/23 11/19/23 20:42 05:29 07:51 Glucose 131 H POC Glucose 177 H 177 H 11/19/23 11:54 Glucose POC Glucose 234 H OUTPATIENT ANTIDIABETIC REGIMEN: * Lantus 45 units SC daily * Humalog 18 units SC AC + SSI * HbA1c: 7.1% (11/16/23) ASSESSMENT: 11/18: * Pt received 48 units of insulin yesterday (20 units basal, 28 units bolus). * Pt was hyperglycemic pre-lunch (BSG 294) and hypoglycemic pre-dinner (BSG 61) -- Novolog parameters adjusted this morning accordingly. * Fasting BSG was above goal this morning (BSG 177), so Lantus dose was increased. * SCr continues to trend up, so will need to be cautious of "insulin-stacking". * Pharmacy will continue to follow and adjust regimen as indicated. 11/16: * Se received 23 units of insulin yesterday, 20 basal + 3 bolus. BSGs were: 910-110-704-189 mg/dL. * Fasting BSG was 97 mg/dL this AM. Discussed with RN and patient did already eat breakfast today which he did not eat anything yesterday. Therefore, okay with continuing current basal dose despite fasting being below goal. * No change necessary to bolus regimen. * Remains on octreotide and pantoprazole drips. Ceftriaxone continued as well. SCr still climbing but good urine output while on Lasix. 11/15: * 83 yo M admitted on 11/15/23 secondary to possible GI bleed vs symptomatic anemia. Pharmacy has been consulted to assist with inpatient glycemic management. Patient is an insulin-dependent Type 2 diabetic as an outpatient. Please refer to outpatient regimen and most recent HbA1c above. * Did take 45 units of basal prior to admission yesterday and has been NPO since. BSGs last night were 95-100 mg/dL. Ordered bolus insulin only based on weight/stress of 2. No units were required. * Fasting BSG at 105 mg/dL this AM. A clear liquid diet has been ordered which is not very carb heavy. Will reduce home basal dose by more than 50% for today and see how patient tolerates. No change to Novolog. * Ordered octreotide and pantoprazole drips as well as ceftriaxone. PLAN FOR INPATIENT GLYCEMIC CONTROL: * Basal insulin * Lantus 25 units SC daily * Bolus insulin * NovoLog per scale ACHS or Q6hrs while NPO * Goal Range: Low 110 mg/dL - High 140 mg/dL * Correction Factor: 30 mg/dL/unit * Nutritional / Prandial insulin per carb ratio of 1 unit per 5 grams CHO consumed at breakfast, and 1 unit per 6 grams CHO consumed for lunch, dinner and bedtime
--- NOTE | 2023-11-19 13:01 | Hospitalist Progress Note ---
Date of Service November 19, 2023 Assessment & Plan (1) Acute on chronic HFrEF (heart failure with reduced ejection fraction): Plan: Acute on chronic heart failure with reduced ejection fraction Reported worsening shortness of breath, which prompted his practice architect to send him from the clinic BNP 400 2D echo showed preserved ejection fraction, 55 to 60%, with mild to moderate tricuspid regurgitation Patient has been making good urine, about 1.1 L negative fluid balance over the past 24 hours Change Lasix to p.o. 40 mg daily Monitor input and output, daily weight Continue low-sodium diet Continue spironolactone 25mg PO daily and monitor potassium closely Continue metoprolol succinate appreciate cardiology (2) Urine retention: Plan: Now resolved Outpatient follow-up with urology (3) Acute on chronic respiratory failure with hypoxia: Plan: Aim O2 sat 88-92% Baseline 3LPM O2 Some improvement in shortness of breath following diuresis (4) Symptomatic anemia: Plan: Suspected acute GI bleed with acute blood loss anemia - Patient with history of GI bleed Iron stidues, B12, folate, retic count, all have been reviewed, LDH, FOB +ve in the ER Initially on Protonix drip, octreotide drip, although this has been discontinued Hemoglobin has been stable 8.1 today (5) Paroxysmal atrial fibrillation: Plan: Currently on Eliquis, 2.5 mg twice daily Continue rate control with metoprolol succinate (6) Chronic obstructive pulmonary disease: Plan: No acute exacerbation suspected Continue routine inhalers (7) Type 2 diabetes mellitus, with long-term current use of insulin: Plan: Hemoglobin A1C 7.5 in February 2023, (8) Hypertension: Plan: Continue metoprolol succinate, losartan as long as BP allows Add Lasix and spironolactone as above (9) 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 Discharge in next 24 to 48 hours Admission and Anticipated Discharge Date Admission Date: November 15, 2023 Subjective Patient seen and examined today, sitting up in the chair states his breathing is much improved but complains of headache mild headache Review of Systems Review of Systems: All systems reviewed are negative, apart from the ones contained in the history. Physical Exam Physical Exam: The patient is awake, alert and oriented 3, well developed and well nourished, normocephalic and atraumatic, lying in bed and in no acute distress. HEENT--PERRL, EOMI, mucous membranes and oropharynx mildly dry Neck--supple. No JVD. No bruits. Thyroid normal, trachea midline, no adenopathy. Heart--normal S1 and S2. No murmurs, rubs or gallops. Lungs--reduced air entry on auscultation, some respiratory distress Abdomen--normal bowel sounds and soft. Extremities--trace bilateral leg edema. Dermatologic--normal skin turgor, normal color, no abnormal lymph nodes, no rash. Neurologic--cranial nerves II through XII grossly intact. Rheumatologic--normal range of motion. Psychiatric--normal affect. Results & Data Results & Data Vital Signs (Past 12 Hours) Vital Signs Temp Pulse Pulse Resp BP Pulse Ox O2 Del Method 11/19/23 11:25 97.9 F 77 22 114/71 93 Nasal Cannula 11/19/23 09:00 Nasal Cannula 11/19/23 08:00 87 11/19/23 07:30 98.1 F 81 22 104/59 L 93 Nasal Cannula 11/19/23 03:00 97.9 F 77 24 112/64 95 Nasal Cannula O2 Flow Rate 11/19/23 11:25 4.0 11/19/23 09:00 4 11/19/23 08:00 11/19/23 07:30 4.0 11/19/23 03:00 PG Care Time/CCT Total # of Minutes Spent Total Time Spent with Patient: Total time spent is greater than 50% in coordination of care (as documented) at patient's floor/unit and/or counseling patient: Coding Level of Care Code 84887 SUB INP/OBS CARE 2/35MIN Diagnoses Acute on chronic HFrEF (heart failure with reduced ejection fraction) I50.23 Urine retention R33.9 Acute on chronic respiratory failure with hypoxia J96.21 Symptomatic anemia D64.9 Paroxysmal atrial fibrillation I48.0 Chronic obstructive pulmonary disease J44.9 Type 2 diabetes mellitus, with long-term current use of insulin E11.9; Z79.4 Essential hypertension I10 Hypertension type: essential hypertension 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
--- NOTE | 2023-11-19 13:26 | XRay Report ---
XR chest 1V portable HISTORY: 83 years-old Male sob, follow up acute shortness of breath COMPARISON: CTA chest 11/15/2023 TECHNIQUE: AP view of the chest FINDINGS: Cardiac silhouette is enlarged. Emphysema with chronic interstitial coarsening. There is no pneumotho rax, pleural effusion, airspace consolidation or overt pulmonary edema. IMPRESSION: Cardiomegaly without acute process. ACT 112: Negative or not required by law. The above report was generated using voice recognition software. It may contain grammatical, syntax o r spelling errors. Electronically signed by: Jose Angel Varma M.D. 11/19/2023 1:25 PM
[2023-11-19] MEDS: bisacodyL 10 MG SUPP PR STA (13:27)
[2023-11-19] MEDS: PANTOprazole 40 MG TAB PO SCH (21:06)
[2023-11-20 07:09] LABS: BUN Creatinine Ratio 25.9 (10-20); Calcium 7.8 mg/dl (8.6-10.3); Creatinine Clr Calc Pharmacy 46.2 ml/min; Est GFR (African American) 44.1 ml/min; Est GFR (Non-African American) 38.1 ml/min; Potassium 4.5 mmol/L (3.5-5.1)
--- NOTE | 2023-11-20 10:37 | Hospitalist Progress Note ---
Date of Service November 20, 2023 Assessment & Plan (1) Acute on chronic HFrEF (heart failure with reduced ejection fraction): Plan: Acute on chronic heart failure with reduced ejection fraction Reported worsening shortness of breath, which prompted his hand flesher to send him from the clinic BNP 400 2D echo showed preserved ejection fraction, 55 to 60%, with mild to moderate tricuspid regurgitation Patient has been making good urine, about 1.5 L negative fluid balance over the past 24 hours Continue Lasix to p.o. 40 mg daily Monitor input and output, daily weight Continue low-sodium diet Continue spironolactone 25mg PO daily and monitor potassium closely Continue metoprolol succinate appreciate cardiology (2) Urine retention: Plan: Now resolved Outpatient follow-up with urology (3) Acute on chronic respiratory failure with hypoxia: Plan: Aim O2 sat 88-92% Baseline 3LPM O2 Some improvement in shortness of breath following diuresis (4) Symptomatic anemia: Plan: Suspected acute GI bleed with acute blood loss anemia - Patient with history of GI bleed Iron stidues, B12, folate, retic count, all have been reviewed, LDH, FOB +ve in the ER Initially on Protonix drip, octreotide drip, although this has been discontinued Hemoglobin has been stable 8.1 today (5) Paroxysmal atrial fibrillation: Plan: Currently on Eliquis, 2.5 mg twice daily Continue rate control with metoprolol succinate (6) Chronic obstructive pulmonary disease: Plan: No acute exacerbation suspected Continue routine inhalers (7) Type 2 diabetes mellitus, with long-term current use of insulin: Plan: Hemoglobin A1C 7.5 in February 2023, (8) Hypertension: Plan: Continue metoprolol succinate, losartan as long as BP allows Add Lasix and spironolactone as above (9) 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 Discharge in next 24 to 48 hours Admission and Anticipated Discharge Date Admission Date: November 15, 2023 Subjective Patient seen and examined today, sitting up in the chair states his breathing is much improved but complains of needing a little bit more tea Review of Systems Review of Systems: All systems reviewed are negative, apart from the ones contained in the history. Physical Exam Physical Exam: The patient is awake, alert and oriented 3, well developed and well nourished, normocephalic and atraumatic, lying in bed and in no acute distress. HEENT--PERRL, EOMI, mucous membranes and oropharynx mildly dry Neck--supple. No JVD. No bruits. Thyroid normal, trachea midline, no adenopathy. Heart--normal S1 and S2. No murmurs, rubs or gallops. Lungs--reduced air entry on auscultation, some respiratory distress Abdomen--normal bowel sounds and soft. Extremities--trace bilateral leg edema. Dermatologic--normal skin turgor, normal color, no abnormal lymph nodes, no rash. Neurologic--cranial nerves II through XII grossly intact. Rheumatologic--normal range of motion. Psychiatric--normal affect. Results & Data Results & Data Vital Signs (Past 12 Hours) Vital Signs Temp Pulse Resp BP Pulse Ox O2 Del Method O2 Flow Rate 11/20/23 08:03 97.5 F L 68 18 111/64 94 Nasal Cannula 4 11/20/23 08:00 Nasal Cannula 3 11/20/23 03:00 97.9 F 75 21 97/58 L 97 Nasal Cannula 11/19/23 23:00 98.1 F 72 20 100/64 95 Nasal Cannula PG Care Time/CCT Total # of Minutes Spent Total Time Spent with Patient: Total time spent is greater than 50% in coordination of care (as documented) at patient's floor/unit and/or counseling patient: Coding Level of Care Code 96438 SUB INP/OBS CARE 2/35MIN Diagnoses Acute on chronic HFrEF (heart failure with reduced ejection fraction) I50.23 Urine retention R33.9 Acute on chronic respiratory failure with hypoxia J96.21 Symptomatic anemia D64.9 Paroxysmal atrial fibrillation I48.0 Chronic obstructive pulmonary disease J44.9 Type 2 diabetes mellitus, with long-term current use of insulin E11.9; Z79.4 Essential hypertension I10 Hypertension type: essential hypertension 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
[2023-11-21] MEDS: ALBUT/IPRATROP 3MG/0.5MG NEB 3 ML VIAL NEB STA (00:39)
[2023-11-21 00:47] LABS: Base Excess VBG 0.3 mEq/L; HCO3 VBG 27 mmol/L; Oxygen Saturation VBG < 60.0 %; PCO2 VBG 48 mmHg (38-50); PO2 VBG 32 mmHg; pH VBG 7.35 (7.36-7.41)
--- NOTE | 2023-11-21 01:19 | Communication Note ---
Date of Service: November 21, 2023 Notified by nursing of concern for chest tightness. Evaluated pt at bedside- hemodynamically stable, without increased oxygen requirement. Notes chest tig htness, denies pain/dyspnea. In no acute distress. Heart with RRR, no murmur. Lungs + wheezes in bases. LE with trace LE edema. Currently being diuresed- acute on chronic HRrEF, also history of COPD. EKG without acute changes. Plan to repeat trop, VBG. Will get CXR. Duoneb now.
--- NOTE | 2023-11-21 08:10 | XRay Report ---
XR chest 1V portable HISTORY: Increased Dyspnea COMPARISON: Chest 11/19/2023. FINDINGS: No pneumothorax. No pleural effusions. There are low lung volumes. The heart remains enlarg ed. Is mild central pulmonary vascular congestion without overt edema. This is similar to the prior s tudy. No new focal lung consolidations to suggest a pneumonia. No acute fractures. IMPRESSION: Cardiomegaly and mild congestive change. This is similar to the prior study. ACT 112: Negative or not required by law. Electronically signed by: Jaswant Price M.D. 11/21/2023 8:09 AM
[2023-11-21] MEDS: LANTUS PER UNIT CHARGE SC SCH (09:06)
--- NOTE | 2023-11-21 10:11 | Hospitalist Progress Note ---
Date of Service November 21, 2023 Assessment & Plan (1) Acute on chronic HFrEF (heart failure with reduced ejection fraction): Plan: Acute on chronic heart failure with reduced ejection fraction Reported worsening shortness of breath, which prompted his land lease information clerk to send him from the clinic BNP 400 2D echo showed preserved ejection fraction, 55 to 60%, with mild to moderate tricuspid regurgitation Patient has been making good urine, about 1.2 L negative fluid balance over the past 24 hours Since the daily weight is not accurate, I have asked the nurse to measure using the bedside scale Continue Lasix to p.o. 40 mg daily Monitor input and output, daily weight Continue low-sodium diet Continue spironolactone 25mg PO daily and monitor potassium closely Continue metoprolol succinate appreciate cardiology (2) Urine retention: Plan: Now resolved Outpatient follow-up with urology (3) Acute on chronic respiratory failure with hypoxia: Plan: Aim O2 sat 88-92% Baseline 3LPM O2 Some improvement in shortness of breath following diuresis (4) Symptomatic anemia: Plan: Suspected acute GI bleed with acute blood loss anemia - Patient with history of GI bleed Iron stidues, B12, folate, retic count, all have been reviewed, LDH, FOB +ve in the ER Initially on Protonix drip, octreotide drip, although this has been discontinued Hemoglobin has been stable 8.1 today (5) Paroxysmal atrial fibrillation: Plan: Currently on Eliquis, 2.5 mg twice daily Continue rate control with metoprolol succinate (6) Chronic obstructive pulmonary disease: Plan: No acute exacerbation suspected Continue routine inhalers (7) Type 2 diabetes mellitus, with long-term current use of insulin: Plan: Hemoglobin A1C 7.5 in February 2023, (8) Hypertension: Plan: Continue metoprolol succinate, losartan as long as BP allows Add Lasix and spironolactone as above (9) 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: Plan: CT showed evidence of mild ascites INR and Plt normal (10) BPH loc w urin obs/LUTS: Plan: As above (11) Acute GI bleeding: (12) Acute blood loss anemia: Plan VTE Prophylaxis -Eliquis Diet -heart healthy diet, fluid restriction low-sodium diet Disposition -patient is deconditioned and needs reevaluation by physical therapy, he needs SNF Admission and Anticipated Discharge Date Admission Date: November 15, 2023 Subjective Patient seen and examined today, sitting up in the chair states his breathing is much improved but complains of needing a little bit more tea Review of Systems Review of Systems: All systems reviewed are negative, apart from the ones contained in the history. Physical Exam Physical Exam: The patient is awake, alert and oriented 3, well developed and well nourished, normocephalic and atraumatic, lying in bed and in no acute distress. HEENT--PERRL, EOMI, mucous membranes and oropharynx mildly dry Neck--supple. No JVD. No bruits. Thyroid normal, trachea midline, no adenop athy. Heart--normal S1 and S2. No murmurs, rubs or gallops. Lungs--reduced air entry on auscultation, some respiratory distress Abdomen--normal bowel sounds and soft. Extremities--trace bilateral leg edema. Dermatologic--normal skin turgor, normal color, no abnormal lymph nodes, no rash. Neurologic--cranial nerves II through XII grossly intact. Rheumatologic--normal range of motion. Psychiatric--normal affect. Results & Data Results & Data Vital Signs (Past 12 Hours) Vital Signs Temp Pulse Resp BP Pulse Ox O2 Del Method O2 Flow Rate 11/21/23 07:49 97.5 F L 75 20 114/69 94 Nasal Cannula 4 11/21/23 03:09 97.9 F 68 21 99/60 L 97 Nasal Cannula 11/21/23 00:40 80 20 97 Nasal Cannula 4 11/21/23 00:20 84 22 134/52 L 96 Nasal Cannula 4 11/20/23 23:35 97.9 F 72 19 93/60 L 96 Nasal Cannula PG Care Time/CCT Total # of Minutes Spent Total Time Spent with Patient: Total time spent is greater than 50% in coordination of care (as documented) at patient's floor/unit and/or counseling patient: Coding Level of Care Code 33069 SUB INP/OBS CARE 2/35MIN Diagnoses Acute on chronic HFrEF (heart failure with reduced ejection fraction) I50.23 Urine retention R33.9 Acute on chronic respiratory failure with hypoxia J96.21 Symptomatic anemia D64.9 Paroxysmal atrial fibrillation I48.0 Chronic obstructive pulmonary disease J44.9 Type 2 diabetes mellitus, with long-term current use of insulin E11.9; Z79.4 Essential hypertension I10 Hypertension type: essential hypertension 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
--- NOTE | 2023-11-21 10:51 | Electrocardiogram Report ---
Test Reason : Blood Pressure : / mmHG Vent. Rate : 074 BPM Atrial Rate : 357 BPM P-R Int : 000 ms QRS Dur : 080 ms QT Int : 418 ms P-R-T Axes : 000 -04 023 degrees QTc Int : 463 ms Atrial fibrillation Low voltage QRS Abnormal ECG When compared with ECG of 15-NOV-2023 15:36, Nonspecific T wave abnormality, improved in Inferior leads Confirmed by Pollo Dunn ([id number]) on 11/21/2023 10:50:40 AM Referred By: Moshe Dyer Confirmed By:Pollo Dunn
[2023-11-22 06:20] LABS: Basophils # (auto) 0.07 K/uL (0.00-0.20); Basophils % (auto) 0.8 %; Eosinophils # (auto) 0.21 K/uL (0.00-0.50); Eosinophils % (auto) 2.3 %; Hematocrit (blood only) 28.1 % (42.0-52.0); Hemoglobin 8.5 g/dl (14.0-18.0); Immature Granulocytes # (auto) 0.04 K/uL (0.01-0.20); Immature Granulocytes % (auto) 0.4 %; Lymphocytes # (auto) 1.79 K/uL (1.20-3.40); Lymphocytes % (auto) 19.6 %; Mean Corpuscular Hemoglobin 28.8 pg (25.0-34.0); Mean Corpuscular Hgb Conc 30.2 g/dL (32.0-36.0); Mean Corpuscular Volume 95.3 fL (80.0-100.0); Mean Platelet Volume 10.4 fL (9.4-12.4); Monocytes % (auto) 9.9 %; Neutrophils # (auto) 6.11 K/uL (1.40-6.50); Platelet Count 275 K/uL (130-400); RDW Coefficient of Variation 14.5 % (11.5-14.5); RDW Standard Deviation 50.4 fL (36.4-46.3); Red Blood Count 2.95 M/uL (4.70-6.10); White Blood Count 9.12 K/ul (4.8-10.8)
[2023-11-22 06:41] LABS: Albumin Globulin Ratio 1.1 (0.9-2); Albumin Level 3.5 gm/dl (3.4-5.0); BUN Creatinine Ratio 24.4 (10-20); Bilirubin,Total 0.5 mg/dl (0.2-1.0); Calcium 7.7 mg/dl (8.6-10.3); Creatinine Clr Calc Pharmacy 44.3 ml/min; Est GFR (African American) 42.3 ml/min; Est GFR (Non-African American) 36.5 ml/min; Globulin 3.2 gm/dl (2.5-4.0); Potassium 4.5 mmol/L (3.5-5.1); Total Protein 6.7 gm/dl (6.0-8.3)
[2023-11-22] MEDS: metFORMIN HCL 500 MG TAB PO SCH (10:48)
[2023-11-22] MEDS: FUROSEMIDE 80 MG TAB PO ONE (10:57)
--- NOTE | 2023-11-22 11:56 | Hospitalist Progress Note ---
Date of Service November 22, 2023 Assessment & Plan (1) Acute on chronic HFrEF (heart failure with reduced ejection fraction): Plan: 2D echo showed preserved ejection fraction, 55 to 60%, with mild to moderate tricuspid regurgitation. Good diuretic response to Lasix. Oral dosage increased from 40 to 80 mg once daily. Appreciate cardiology consultation and recommendations. (2) Urine retention: Plan: Present on admission. Now resolved. Outpatient follow-up with urology (3) Acute on chronic respiratory failure with hypoxia: Plan: He is currently requiring 4 L of oxygen per nasal cannula. He normally uses 3 L/min. Continue to treat CHF. (4) Symptomatic anemia: Plan: History of GI bleed. Fecal occult blood is positive. This appears to be a chronic GI blood loss. Iron stidues, B12, folate, retic count, all have been reviewed. Protonix drip and octreotide drip have been discontinued. Hemoglobin is in the 8-9 range and stable. Serial labs (5) Paroxysmal atrial fibrillation: Plan: Currently on Eliquis 2.5 mg twice daily. Continue rate control with metoprolol succinate. Telemetry (6) Chronic obstructive pulmonary disease: Plan: No acute exacerbation suspected. Continue usual inhalers (7) Type 2 diabetes mellitus, with long-term current use of insulin: Plan: ADA diet. Sliding scale coverage as needed. Continue current medical management. Hemoglobin A1C 7.5 in February 2023, (8) Hypertension: Plan: Stable. Continue metoprolol succinate, losartan. Lasix dosage uptitrated this admission. Continue spironolactone (9) Liver cirrhosis secondary to KAZT: Plan: CT showed evidence of mild ascites. INR and Plt normal. Supportive care (10) BPH loc w urin obs/LUTS: Plan: With urinary retention on admission. Now resolved. Plan Anticipate SNF placement at discharge when arrangements are finalized. He is medically stable for discharge Admission and Anticipated Discharge Date Admission Date: November 15, 2023 Subjective Alert and oriented. No distress. When asked to take a deep breath during examination he starts coughing. Incentive spirometry has been ordered. He is poorly motivated to help himself. OT and PT have been ordered on a daily basis. Lasix has been increased to 80 mg once a day since he developed CHF while on 40 mg once a day at home. Creatinine up slightly to 1.7. He continues to diurese. He is currently on 4 L of oxygen. Review of Systems 2 Review of Systems: Constitutional-no fever or chills. Morbidly obese ENT-no blurred vision, no double vision, no epistaxis, no sore throat Respiratory-coughing with attempted deep breathing. No wheezing, no shortness of breath at rest. He does have dyspnea with exertion Cardiacno palpitations, no chest pain, no syncope GI-no nausea, vomiting, diarrhea, melena, hematochezia -no urinary retention, no urinary incontinence, no dysuria, no hematuria Musculoskeletal-no joint pain, no muscle tenderness Skin-no bruising, no rashes, no pruritus Neuro-generalized weakness. Psych-no depression, no anxiety Physical Exam 2 Physical Exam: General-alert and oriented x3, no fever, no chills. Morbidly obese HEENT-head atraumatic and normocephalic, pupils equal and reactive to light, extraocular muscles intact Neck-no lymphadenopathy or thyromegaly, trachea midline Chest-diminished breath sounds bilaterally. Faint end expiratory rales. He coughs with attempted deep breathing. Cardiac-regular rate and rhythm, normal S1 and S2 Abdomen-normal bowel sounds, no hepatosplenomegaly Extremities-no cyanosis, clubbing. Chronic appearing bilateral nonpitting lower extremity edema Neuro-cranial nerves II through XII intact, motor and sensory function within normal limits, strength symmetrical, no focal deficits Psych-normal affect, normal mood Results & Data Results & Data Vital Signs (Past 12 Hours) Vital Signs Temp Pulse Resp BP Pulse Ox O2 Del Method O2 Flow Rate 11/22/23 08:07 36.6 C 77 18 102/67 94 Nasal Cannula 4 11/22/23 08:00 Nasal Cannula 4 11/22/23 03:00 36.5 C 87 20 129/75 92 Nasal Cannula Laboratory Results 11/22/23 05:38 11/22/23 05:38 PG Care Time/CCT Total # of Minutes Spent Total Time Spent with Patient: Total time spent is greater than 50% in coordination of care (as documented) at patient's floor/unit and/or counseling patient: Coding Level of Care Code 67554 SUB INP/OBS CARE 3/50MIN Diagnoses Acute on chronic HFrEF (heart failure with reduced ejection fraction) I50.23 Urine retention R33.9 Acute on chronic respiratory failure with hypoxia J96.21 Symptomatic anemia D64.9 Paroxysmal atrial fibrillation I48.0 Chronic obstructive pulmonary disease J44.9 Type 2 diabetes mellitus, with long-term current use of insulin E11.9; Z79.4 Essential hypertension I10 Hypertension type: essential hypertension 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
--- NOTE | 2023-11-22 15:52 | Heart Failure Progress Note ---
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 RV not well visualized on today's echo. LV function improved from previous. CXR without pulmonary edema. BNP 440. He is likely near euvolemic but has difficult exam. Suspect symptoms likely multifactorial- including anemia, urinary retention, cirrhosis, COPD/emphysema, fibrotic lung disease, obesity, deconditioning, and CHF. Patient requires supplemental O2. Weight was trending down this admission but remains above his previous baseline. He's net negative 12L. Continue to further optimizing his volume status. Given his hypotension and azotemia he was transitioned to PO Lasix. He continues to be at least 1+ L negative. Lasix further increased to 80 mg PO daily today. Spironolactone 25 mg daily initiated on admission. Could also consider SGLT2i however previous documentation notes frequent UTIs- may not be ideal candidate. Continue to monitor renal function and electrolytes. Recommend daily standing weights while hospitalized. Strict I&O. He was provided with a home scale in the past. Recommend low sodium diet, less than 2,000 mg daily. Atrial fibrillation:Rate is well controlled. Continue Eliquis. Hypertension: Currently well controlled. Continue current regimen. COPD/fibrotic lung disease: Follows with Dr. Dyer. Disposition: Will continue to follow during hospitalization. Anticipate close outpatient follow up with the heart failure program. Scheduled 11/30/23 at 1030 Admission and Anticipated Discharge Date Admission Date: November 15, 2023 Subjective Patient sitting at the bedside today. Reports he's feeling ok. He remains on 4L O2. He has not been ambulatory. He continues to have lower extremity edema. He slept well-denies orthopnea or PND. Physical Exam Physical Exam: Constitutional: Alert, oriented, in no acute distress. Supplemental oxygen via nasal cannula HEENT: Head is atraumatic and normocephalic. EOMs intact. Sclera non-icteric. Face is symmetric Neck: No appreciable JVD but difficult exam given thick neck Pulmonary: Normal respiratory effort, faint bibasilar crackles. Cardiac: Regular rate and rhythm, normal S1 and S2, no gallops, no rubs, no murmurs Extremities: 1+ bilateral lower extremity edema. No clubbing or cyanosis. 2+ radial pulses Abdomen: Normal bowel sounds, soft, non-tender, no abdominal masses palpated Skin: Normal skin color, turgor, and pigmentation. No rash or skin lesions Neurological: Oriented to person, place, and time Results & Data Vital Signs (Past 12 Hours) Vital Signs Temp Pulse Pulse Resp BP Pulse Ox O2 Del Method 11/22/23 15:00 90 11/22/23 12:19 97.5 F L 94 H 22 112/67 91 Nasal Cannula 11/22/23 08:07 97.9 F 77 18 102/67 94 Nasal Cannula 11/22/23 08:00 Nasal Cannula O2 Flow Rate 11/22/23 15:00 11/22/23 12:19 4 11/22/23 08:07 4 11/22/23 08:00 4 PG Care Time/CCT Total # of Minutes Spent Total Time Spent with Patient: Total time spent is greater than 50% in coordination of care (as documented) at patient's floor/unit and/or counseling patient: Coding Level of Care Code 22205 SUB INP/OBS CARE 3/50MIN Diagnoses (HFpEF) heart failure with preserved ejection fraction I50.30 Acute blood loss anemia D62 COPD (chronic obstructive pulmonary disease) with chronic bronchitis J44.89 Right ventricular failure I50.810 Pulmonary hypertension I27.20 Morbid obesity E66.01 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
[2023-11-23 06:23] LABS: Basophils # (auto) 0.07 K/uL (0.00-0.20); Basophils % (auto) 0.8 %; Eosinophils # (auto) 0.19 K/uL (0.00-0.50); Eosinophils % (auto) 2.1 %; Hematocrit (blood only) 27.4 % (42.0-52.0); Hemoglobin 8.4 g/dl (14.0-18.0); Immature Granulocytes # (auto) 0.03 K/uL (0.01-0.20); Immature Granulocytes % (auto) 0.3 %; Lymphocytes # (auto) 1.96 K/uL (1.20-3.40); Lymphocytes % (auto) 21.8 %; Mean Corpuscular Hemoglobin 28.8 pg (25.0-34.0); Mean Corpuscular Hgb Conc 30.7 g/dL (32.0-36.0); Mean Corpuscular Volume 93.8 fL (80.0-100.0); Mean Platelet Volume 10.4 fL (9.4-12.4); Monocytes # (auto) 0.87 K/uL (0.11-0.59); Monocytes % (auto) 9.7 %; Neutrophils # (auto) 5.88 K/uL (1.40-6.50); Neutrophils % (auto) 65.3 %; Platelet Count 272 K/uL (130-400); RDW Coefficient of Variation 14.5 % (11.5-14.5); RDW Standard Deviation 49.8 fL (36.4-46.3); Red Blood Count 2.92 M/uL (4.70-6.10)
[2023-11-23 06:48] LABS: Calcium 7.7 mg/dl (8.6-10.3); Creatinine Clr Calc Pharmacy 38.8 ml/min; Est GFR (African American) 36.1 ml/min; Est GFR (Non-African American) 31.2 ml/min; Potassium 4.3 mmol/L (3.5-5.1)
[2023-11-23] MEDS: FUROSEMIDE 80 MG TAB PO SCH (09:00)
--- NOTE | 2023-11-23 12:05 | XRay Report ---
XR chest 1V portable HISTORY: Congestive heart failure. Shortness of breath. COMPARISON: Chest 11/21/2023. FINDINGS: There are low lung volumes. No pneumothorax. No pleural effusions. The cardiac silhouette r emains mildly enlarged. There is mild central pulmonary vascular congestion without overt edema. This has slightly improved. No acute fractures. No focal lung consolidations to suggest a pneumonia. IMPRESSION: Cardiomegaly with improvement in the mild central pulmonary vascular congestion ACT 112: Negative or not required by law. Electronically signed by: Jaswant Price M.D. 11/23/2023 12:04 PM
--- NOTE | 2023-11-23 13:56 | Hospitalist Progress Note ---
Date of Service November 23, 2023 Assessment & Plan (1) Acute on chronic HFrEF (heart failure with reduced ejection fraction): Plan: 2D echo showed preserved ejection fraction, 55 to 60%, with mild to moderate tricuspid regurgitation. Good diuretic response to Lasix. Oral dosage has been increased from 40 to 80 mg once daily. Appreciate cardiology consultation and recommendations. Portable chest x-ray done today, November 22, reveals no overt CHF. (2) Urine retention: Plan: Present on admission. Now resolved. Outpatient follow-up with urology (3) Acute on chronic respiratory failure with hypoxia: Plan: He is currently requiring 4 L of oxygen per nasal cannula. He normally uses 3 L/min. Wean down to his usual 3 L/min as tolerated (4) Symptomatic anemia: Plan: History of GI bleed. Fecal occult blood is positive. This appears to be a chronic GI blood loss. Iron stidues, B12, folate, retic count, all have been reviewed. Protonix drip and octreotide drip have been discontinued. Hemoglobin is in the 8-9 range and stable. Serial labs (5) Paroxysmal atrial fibrillation: Plan: Currently on Eliquis 2.5 mg twice daily. Continue rate control with metoprolol succinate. Eliquis has been stopped due to symptomatic anemia and fecal occult blood positivity. Telemetry (6) Chronic obstructive pulmonary disease: Plan: No acute exacerbation suspected. Continue usual inhalers (7) Type 2 diabetes mellitus, with long-term current use of insulin: Plan: ADA diet. Sliding scale coverage as needed. Continue current medical management. Hemoglobin A1C 7.5 in February 2023, (8) Hypertension: Plan: Stable. Continue metoprolol succinate, losartan. Lasix dosage uptitrated this admission. 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 INR and Plt normal. Supportive care (10) BPH loc w urin obs/LUTS: Plan: With urinary retention on admission. Now resolved. Plan Anticipate [facility] placement at discharge when arrangements are finalized. He is medically stable for discharge Admission and Anticipated Discharge Date Admission Date: November 15, 2023 Subjective Alert and oriented. No new problems. Oxygen saturation 95% on 4 L. He usually uses 3 L at home and probably can be titrated down to his baseline oxygen usage. Creatinine is slightly elevated at 1.9. Chest x-ray done today, November 22 is negative for overt CHF. Most recent cardiac echo reveals ejection fraction of 55%. Placement at [facility] is pending. He is medically stable for discharge. Review of Systems 2 Review of Systems: Constitutional-no fever or chills. Morbidly obese ENT-no blurred vision, no double vision, no epistaxis, no sore throat Respiratory-coughing with attempted deep breathing. No wheezing, no shortness of breath at rest. He does have dyspnea with exertion. I suspect this is chronic from poor cardiovascular conditioning Cardiacno palpitations, no chest pain, no syncope GI-no nausea, vomiting, diarrhea, melena, hematochezia -no urinary retention, no urinary incontinence, no dysuria, no hematuria Musculoskeletal-no joint pain, no muscle tenderness Skin-no bruising, no rashes, no pruritus Neuro-generalized weakness. Psych-no depression, no anxiety Physical Exam 2 Physical Exam: General-alert and oriented x3, no fever, no chills. Morbidly obese HEENT-head atraumatic and normocephalic, pupils equal and reactive to light, extraocular muscles intact Neck-no lymphadenopathy or thyromegaly, trachea midline Chest-diminished breath sounds bilaterally. Faint end expiratory wheeze has resolved. Cardiac-regular rate and rhythm, normal S1 and S2 Abdomen-normal bowel sounds, no hepatosplenomegaly Extremities-no cyanosis, clubbing. Chronic appearing bilateral nonpitting lower extremity edema Neuro-cranial nerves II through XII intact, motor and sensory function within normal limits, strength symmetrical, no focal deficits Psych-normal affect, normal mood Results & Data Results & Data Vital Signs (Past 12 Hours) Vital Signs Temp Pulse Pulse Resp BP Pulse Ox O2 Del Method 11/23/23 12:33 36.3 C L 87 20 111/71 95 Nasal Cannula 11/23/23 09:42 79 11/23/23 08:27 36.3 C L 88 18 121/77 95 Nasal Cannula 11/23/23 08:00 Nasal Cannula 11/23/23 03:00 36.6 C 85 18 105/60 98 Nasal Cannula O2 Flow Rate 11/23/23 12:33 4 11/23/23 09:42 11/23/23 08:27 4 11/23/23 08:00 4 11/23/23 03:00 4 Laboratory Results 11/23/23 05:43 11/23/23 05:43 PG Care Time/CCT Total # of Minutes Spent Total Time Spent with Patient: Total time spent is greater than 50% in coordination of care (as documented) at patient's floor/unit and/or counseling patient: Coding Level of Care Code 63123 SUB INP/OBS CARE 3/50MIN Diagnoses Acute on chronic HFrEF (heart failure with reduced ejection fraction) I50.23 Urine retention R33.9 Acute on chronic respiratory failure with hypoxia J96.21 Symptomatic anemia D64.9 Paroxysmal atrial fibrillation I48.0 Chronic obstructive pulmonary disease J44.9 Type 2 diabetes mellitus, with long-term current use of insulin E11.9; Z79.4 Essential hypertension I10 Hypertension type: essential hypertension 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
--- NOTE | 2023-11-23 16:03 | Heart Failure Progress Note ---
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 RV not well visualized on echo. LV function improved from previous. CXR without pulmonary edema. BNP 440. He is likely near euvolemic but has difficult exam. Suspect symptoms likely multifactorial- including anemia, urinary retention, cirrhosis, COPD/emphysema, fibrotic lung disease, obesity, deconditioning, and CHF. Patient requires supplemental O2. Weight was trending down this admission but remains above his previous baseline. He's net negative 12L. He continues to have negative fluid balance on PO Lasix. BUN trending up. Recommend Lasix 40 mg daily on discharge with an increase to 80 mg as needed. Spironolactone 25 mg daily initiated on admission. Could also consider SGLT2i however previous documentation notes frequent UTIs- may not be ideal candidate. Continue to monitor renal function and electrolytes. Recommend daily standing weights while hospitalized. Strict I&O. He was provided with a home scale in the past. Recommend low sodium diet, less than 2,000 mg daily. Atrial fibrillation:Rate is well controlled. Continue Eliquis. Hypertension: Currently well controlled. Continue current regimen. COPD/fibrotic lung disease: Follows with Dr. Dyer. Disposition: Patient is optimized from a heart failure stable. Will sign off. Anticipate close outpatient follow up with the heart failure program. Scheduled 11/30/23 at 1030 Admission and Anticipated Discharge Date Admission Date: November 15, 2023 Subjective Patient feeling well today. Remains on supplemental O2 4L. He is typically on 3L at baseline. Lower extremity edema improving. He has had a good response to diuretics- net negative 12L. Physical Exam Physical Exam: Constitutional: Alert, oriented, in no acute distress. Supplemental oxygen via nasal cannula HEENT: Head is atraumatic and normocephalic. EOMs intact. Sclera non-icteric. Face is symmetric Neck: No appreciable JVD but difficult exam given thick neck Pulmonary: Normal respiratory effort, faint bibasilar crackles. Cardiac: Regular rate and rhythm, normal S1 and S2, no gallops, no rubs, no murmurs Extremities: 1+ bilateral lower extremity edema. No clubbing or cyanosis. 2+ radial pulses Abdomen: Normal bowel sounds, soft, non-tender, no abdominal masses palpated Skin: Normal skin color, turgor, and pigmentation. No rash or skin lesions Neurological: Oriented to person, place, and time Results & Data Vital Signs (Past 12 Hours) Vital Signs Temp Pulse Pulse Resp BP Pulse Ox O2 Del Method 11/23/23 12:33 97.3 F L 87 20 111/71 95 Nasal Cannula 11/23/23 09:42 79 11/23/23 08:27 97.3 F L 88 18 121/77 95 Nasal Cannula 11/23/23 08:00 Nasal Cannula O2 Flow Rate 11/23/23 12:33 4 11/23/23 09:42 11/23/23 08:27 4 11/23/23 08:00 4 PG Care Time/CCT Total # of Minutes Spent Total Time Spent with Patient: Total time spent is greater than 50% in coordination of care (as documented) at patient's floor/unit and/or counseling patient: Coding Level of Care Code 38631 SUB INP/OBS CARE 3/50MIN Diagnoses (HFpEF) heart failure with preserved ejection fraction I50.30 Acute blood loss anemia D62 COPD (chronic obstructive pulmonary disease) with chronic bronchitis J44.89 Right ventricular failure I50.810 Pulmonary hypertension I27.20 Morbid obesity E66.01 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
[2023-11-24 06:23] LABS: Basophils # (auto) 0.06 K/uL (0.00-0.20); Basophils % (auto) 0.6 %; Eosinophils % (auto) 2.1 %; Hematocrit (blood only) 28.4 % (42.0-52.0); Hemoglobin 8.7 g/dl (14.0-18.0); Immature Granulocytes # (auto) 0.03 K/uL (0.01-0.20); Immature Granulocytes % (auto) 0.3 %; Lymphocytes # (auto) 2.14 K/uL (1.20-3.40); Lymphocytes % (auto) 22.6 %; Mean Corpuscular Hemoglobin 28.4 pg (25.0-34.0); Mean Corpuscular Hgb Conc 30.6 g/dL (32.0-36.0); Mean Corpuscular Volume 92.8 fL (80.0-100.0); Mean Platelet Volume 10.6 fL (9.4-12.4); Monocytes # (auto) 0.87 K/uL (0.11-0.59); Monocytes % (auto) 9.2 %; Neutrophils # (auto) 6.15 K/uL (1.40-6.50); Neutrophils % (auto) 65.2 %; Platelet Count 274 K/uL (130-400); RDW Coefficient of Variation 14.5 % (11.5-14.5); RDW Standard Deviation 49.1 fL (36.4-46.3); Red Blood Count 3.06 M/uL (4.70-6.10); White Blood Count 9.45 K/ul (4.8-10.8)
[2023-11-24 06:44] LABS: BUN Creatinine Ratio 27.1 (10-20); Calcium 8.4 mg/dl (8.6-10.3); Creatinine Clr Calc Pharmacy 45.1 ml/min; Est GFR (African American) 44.1 ml/min; Est GFR (Non-African American) 38.1 ml/min; Potassium 4.6 mmol/L (3.5-5.1)
--- NOTE | 2023-11-24 12:53 | Hospitalist Progress Note ---
Date of Service November 24, 2023 Assessment & Plan (1) Acute on chronic HFrEF (heart failure with reduced ejection fraction): Plan: 2D echo showed preserved ejection fraction, 55 to 60%, with mild to moderate tricuspid regurgitation. Good diuretic response to Lasix. Oral dosage has been increased from 40 to 80 mg once daily. Appreciate cardiology consultation and recommendations. Portable chest x-ray done on November 22 reveals no overt CHF. (2) Urine retention: Plan: Present on admission. Now resolved. Outpatient follow-up with urology (3) Acute on chronic respiratory failure with hypoxia: Plan: Oxygen saturation satisfactory on 4 L/min. He will be tapered down to 3 L/min which is his usual oxygen requirement at home. (4) Symptomatic anemia: Plan: History of GI bleed. Fecal occult blood is positive. This appears to be a chronic GI blood loss. Eliquis has been discontinued. Iron stidues, B12, folate, retic count, all have been reviewed. Protonix drip and octreotide drip have been discontinued. Hemoglobin is now stable. Serial labs (5) Paroxysmal atrial fibrillation: Plan: Eliquis has been discontinued due to chronic GI blood loss. Continue rate control with metoprolol succinate. Telemetry (6) Chronic obstructive pulmonary disease: Plan: No acute exacerbation suspected. Continue usual inhalers (7) Type 2 diabetes mellitus, with long-term current use of insulin: Plan: ADA diet. Sliding scale coverage as needed. Continue current medical management. Hemoglobin A1C 7.5 in February 2023 (8) Hypertension: Plan: Stable. Continue metoprolol succinate, losartan. Lasix dosage uptitrated this admission. 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 INR and Plt normal. Supportive care (10) BPH loc w urin obs/LUTS: Plan: With urinary retention on admission. Now resolved. Plan Anticipate [facility] placement at discharge when arrangements are finalized. He is medically stable for discharge Admission and Anticipated Discharge Date Admission Date: November 15, 2023 Subjective The patient is alert. He is very frustrated that he has not heard anything from the insurance company regarding SNF placement. OT and PT recommendations are for rehab placement at the time of discharge and I agree. He certainly cannot be discharged home safely and his is in no condition to give him assistance. Creatinine is 1.6 today. Eliquis has been discontinued. Oxygen will be tapered down to 3 L/min which is his baseline. He is medically stable for discharge. Review of Systems 2 Review of Systems: Constitutional-no fever or chills. Morbidly obese ENT-no blurred vision, no double vision, no epistaxis, no sore throat Respiratory-coughing with attempted deep breathing. No wheezing, no shortness of breath at rest. He does have dyspnea with exertion. I suspect this is chronic from poor cardiovascular conditioning Cardiacno palpitations, no chest pain, no syncope GI-no nausea, vomiting, diarrhea, melena, hematochezia -no urinary retention, no urinary incontinence, no dysuria, no hematuria Musculoskeletal-no joint pain, no muscle tenderness Skin-no bruising, no rashes, no pruritus Neuro-generalized weakness. Psych-no depression, no anxiety Physical Exam 2 Physical Exam: General-alert and oriented x3, no fever, no chills. Morbidly obese HEENT-head atraumatic and normocephalic, pupils equal and reactive to light, extraocular muscles intact Neck-no lymphadenopathy or thyromegaly, trachea midline Chest-diminished breath sounds bilaterally. Faint end expiratory wheeze has resolved. Cardiac-regular rate and rhythm, normal S1 and S2 Abdomen-normal bowel sounds, no hepatosplenomegaly Extremities-no cyanosis, clubbing. Chronic appearing bilateral nonpitting lower extremity edema Neuro-cranial nerves II through XII intact, motor and sensory function within normal limits, strength symmetrical, no focal deficits Psych-normal affect, normal mood Results & Data Results & Data Vital Signs (Past 12 Hours) Vital Signs Temp Pulse Pulse Resp BP Pulse Ox O2 Del Method 11/24/23 11:07 36.8 C 88 18 132/71 93 Nasal Cannula 11/24/23 08:00 Nasal Cannula 11/24/23 07:58 79 11/24/23 07:10 36.3 C L 79 19 118/65 95 Nasal Cannula 11/24/23 02:50 36.6 C 88 18 113/65 93 Nasal Cannula O2 Flow Rate 11/24/23 11:07 3 11/24/23 08:00 3 11/24/23 07:58 11/24/23 07:10 4 11/24/23 02:50 Laboratory Results 11/24/23 05:42 11/24/23 05:42 PG Care Time/CCT Total # of Minutes Spent Total Time Spent with Patient: Total time spent is greater than 50% in coordination of care (as documented) at patient's floor/unit and/or counseling patient: Coding Level of Care Code 90879 SUB INP/OBS CARE 2/35MIN Diagnoses Acute on chronic HFrEF (heart failure with reduced ejection fraction) I50.23 Urine retention R33.9 Acute on chronic respiratory failure with hypoxia J96.21 Symptomatic anemia D64.9 Paroxysmal atrial fibrillation I48.0 Chronic obstructive pulmonary disease J44.9 Type 2 diabetes mellitus, with long-term current use of insulin E11.9; Z79.4 Essential hypertension I10 Hypertension type: essential hypertension 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
[2023-11-25 06:36] LABS: Basophils # (auto) 0.07 K/uL (0.00-0.20); Basophils % (auto) 0.8 %; Eosinophils # (auto) 0.23 K/uL (0.00-0.50); Eosinophils % (auto) 2.7 %; Hematocrit (blood only) 28.8 % (42.0-52.0); Immature Granulocytes # (auto) 0.03 K/uL (0.01-0.20); Immature Granulocytes % (auto) 0.4 %; Lymphocytes # (auto) 1.67 K/uL (1.20-3.40); Lymphocytes % (auto) 19.6 %; Mean Corpuscular Hemoglobin 28.9 pg (25.0-34.0); Mean Corpuscular Hgb Conc 31.3 g/dL (32.0-36.0); Mean Corpuscular Volume 92.6 fL (80.0-100.0); Mean Platelet Volume 10.7 fL (9.4-12.4); Monocytes # (auto) 0.81 K/uL (0.11-0.59); Monocytes % (auto) 9.5 %; Neutrophils # (auto) 5.72 K/uL (1.40-6.50); Platelet Count 299 K/uL (130-400); RDW Coefficient of Variation 14.3 % (11.5-14.5); RDW Standard Deviation 48.4 fL (36.4-46.3); Red Blood Count 3.11 M/uL (4.70-6.10); White Blood Count 8.53 K/ul (4.8-10.8)
[2023-11-25 07:43] LABS: BUN Creatinine Ratio 28.3 (10-20); Calcium 8.7 mg/dl (8.6-10.3); Creatinine Clr Calc Pharmacy 45.4 ml/min; Est GFR (African American) 44.1 ml/min; Est GFR (Non-African American) 38.1 ml/min; Potassium 4.3 mmol/L (3.5-5.1)
--- NOTE | 2023-11-25 09:02 | Discharge Summary ---
Date of Service November 25, 2023 Admission HPI Per Admitting Provider Se saleh is an 83 year old male with COPD and CHF who presents to the ER on advice of his wound care physician from clinic due to 10 days shortness of breath and generalized weakness. He reports this started after a cough and cold illness which he has since recovered from starting 2 weeks ago. Although his cough and nasal congestion improved his shortness of breath expecially on exertion has become much worse. He denies any exertional chest pain, palpitations, orthopnea or PND. He is getting lightheaded when he stands/sits up quickly. and worse since then. Today he almost had a syncopal event when walking into gas station but this was because his oxygen had come off. His reports he may have not been taking his lasix regularly. He feels the weight of his abdomen is pushing on his chest making it harder to breath. Principal Diagnosis Acute on chronic diastolic CHF, acute on chronic hypoxic respiratory failure, symptomatic anemia, fecal occult blood positivity due to chronic GI blood loss Discharge Exam General-alert and oriented x3, no fever, no chills. Morbidly obese HEENT-head atraumatic and normocephalic, pupils equal and reactive to light, extraocular muscles intact Neck-no lymphadenopathy or thyromegaly, trachea midline Chest-diminished breath sounds bilaterally. Faint end expiratory wheeze has resolved. Cardiac-regular rate and rhythm, normal S1 and S2 Abdomen-normal bowel sounds, no hepatosplenomegaly Extremities-no cyanosis, clubbing. Chronic appearing bilateral nonpitting lower extremity edema Neuro-cranial nerves II through XII intact, motor and sensory function within normal limits, strength symmetrical, no focal deficits Psych-normal affect, normal mood Discharge Data Allergies Allergy/AdvReac Type Severity Reaction Status Date / Time cheese Allergy Severe Hives Verified 11/15/23 19:28 Consultations 11/15/23 17:05 ED Decision to Admit Stat 11/16/23 06:23 [facility] [place] CHF Program Referral Routine 11/16/23 06:24 Consult Gastroenterology Routine Ordered Studies 11/15/23 15:21 CT angio chest PE protocol Stat Hospital Course (1) Acute on chronic HFrEF (heart failure with reduced ejection fraction): 2D echo showed preserved ejection fraction, 55 to 60%, with mild to moderate tricuspid regurgitation. Good diuretic response to Lasix. Oral dosage has been increased from 40 to 80 mg once daily. Appreciate cardiology consultation and recommendations. Portable chest x-ray done on November 22 reveals no overt CHF. (2) Urine retention: Present on admission. Now resolved. Outpatient follow-up with urology (3) Acute on chronic respiratory failure with hypoxia: He is now back to his baseline 3 L/min and stable. (4) Symptomatic anemia: History of GI bleed. Fecal occult blood is positive. This appears to be a chronic GI blood loss. Eliquis has been discontinued. Iron stidues, B12, folate, retic count, all have been reviewed. Protonix drip and octreotide drip have been discontinued. Hemoglobin is now stable. Serial labs (5) Paroxysmal atrial fibrillation: Eliquis has been discontinued due to chronic GI blood loss. Continue rate control with metoprolol succinate. Telemetry (6) Chronic obstructive pulmonary disease: No acute exacerbation suspected. Continue usual inhalers (7) Type 2 diabetes mellitus, with long-term current use of insulin: ADA diet. Sliding scale coverage as needed. Continue current medical management. Hemoglobin A1C 7.5 in February 2023 (8) Hypertension: Stable. Continue metoprolol succinate, losartan. Lasix dosage uptitrated this admission. 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 INR and Plt normal. Supportive care (10) BPH loc w urin obs/LUTS: With urinary retention on admission. Now resolved. Plan Dis[place] [facility] [place] [facility] [place] today, November 24 Total Time Total Time Spent Total Time Spent (In Minutes): 45-minute Discharge Plan Discharge Items Patient Disposition: Transfer [facility] Reason For Visit: SYMPTOMATIC ANEMIA, ACUTE ON CHRONIC HEART FAILURE Discharge Diagnosis: Acute on chronic diastolic CHF, acute on chronic hypoxic respiratory failure, chronic GI blood loss with fecal occult blood positivity, symptomatic anemia Activity: Resume your previous activity Non-emergency contact: Primary Care Provider Call non-emergency contact if: you have any medication questions Follow-up/Referrals: Lin Abraham MD [Primary Care Provider] - Ev Fraser PA-C [Physician [employer] Boards Inspector] - 11/30/23 10:30 am (Congestive Heart Failure Program Appointment Information Early follow up is essential to managing your heart failure. An appointment has been scheduled for you with the [facility] Heart Failure Program within 7 days of discharge. Anticipate this visit to be 30-60 minutes long. Please expect a water meter reader phone call from one of our nurses approximately 48 hours from discharge. They will also be placing an order for lab work to be completed 1-2 days prior to your heart failure follow up appointment. Please be sure to have this done so we can go over the results when you come in. Office Location The cardiology office building is located in front of the hospital at [address] Bring the following with you to your follow-up doctor appointments: Please bring your daily weight log any discharge paperwork all of your medication bottles with you to this visit. ) Diet: Carb Consistent or DM2 and Heart Healthy Addtl Attending Provider Instructions: Eliquis has been discontinued due to chronic GI blood loss and anemia. Lasix has been increased to 80 mg once a day Pending Studies at Discharge: No Stand-Alone Forms: My [facility] [employer] Skilled Items Patient informed of condition?: Yes DNR: Yes Discharge Level of Care: Skilled Communicable Disease: No Discharge Prognosis: Stable Lines: None Urinary Catheter: No Medications and DC Order Prescriptions: New spironolactone 25 mg Tablet 25 mg PO QAM Qty: 30 0RF furosemide 80 mg Tablet 80 mg PO QAM Qty: 30 0RF pantoprazole 40 mg Tablet,Delayed Release (Dr/Ec) 40 mg PO DAILY Qty: 30 0RF Continued (DME) pen needle, diabetic [BD Ultra-Fine Lavinia Pen Needle] 32 gauge x 5/32" needle See Dose Instructions .ROUTE .MEDSUPPLY Qty: 200 5RF Dose Instruction: As directed Rx Instructions: 4 times a day (DME) Portable Oxygen E0431 Misc See Rx Instructions .Route Qty: 2 0RF Rx Instructions: Pt needs extra battery pack for POC to go on a trip- [employer] (DME) FreeStyle Annette 14 Day Sensor Kit See Rx Instructions .Route Qty: 6 3RF Rx Instructions: change sensor Q14D Trelegy Ellipta 100-62.5-25 mcg blister with device 1 inh inhalation DAILY Qty: 60 11RF miconazole nitrate 2 % cream 1 applic topical BID PRN (Reason: rash) Qty: 30 5RF simvastatin 40 mg tablet 40 mg PO HS Qty: 90 1RF losartan 100 mg tablet 100 mg PO QAM Qty: 90 3RF Rx Instructions: TAKE 1 TABLET BY MOUTH DAILY insulin glargine [Basaglar KwikPen U-100 Insulin] 100 unit/mL (3 mL) insulin pen 45 unit SQ DAILY 90 Days Qty: 45 3RF metformin 1,000 mg tablet 1,000 mg PO BID Qty: 180 1RF albuterol sulfate 90 mcg/actuation HFA aerosol inhaler 2 puff inhalation QID PRN (Reason: shortness of breath or wheezing) Qty: 6.7 0RF metoprolol succinate 50 mg tablet extended release 24 hr 50 mg PO BID Qty: 180 1RF insulin lispro [Humalog KwikPen Insulin] 100 unit/mL insulin pen See Rx Instructions subcut TID Qty: 90 3RF Rx Instructions: inject 18 units plus sliding scale at meals TDD 100 units subcut three times a day; methenamine hippurate 1 gram tablet 1 g PO BID Qty: 180 3RF Rx Instructions: Start after completing current course of antibiotics dutasteride 0.5 mg capsule 0.5 mg PO DAILY Qty: 90 2RF tamsulosin 0.4 mg capsule 0.4 mg PO DAILY Qty: 90 2RF cholecalciferol (vitamin D3) 25 mcg (1,000 unit) capsule 5,000 unit PO DAILY Oxygen Home E0424 Liters Per Minute 1 ea .ROUTE .COMPLEX Rx Instructions: 1 ea Oxygen 4 L/min via nasal cannula DX:J44.9; epinephrine 0.3 mg/0.3 mL auto-injector 0.3 mg subcut .INJECT 0.3ML INTRAMU Qty: 1 gabapentin 300 mg capsule 300 mg PO HS gabapentin 100 mg capsule 100 mg PO BID Rx Instructions: Spouse: "He is only taking 100mg in the morning and 100mg at noon." Original Directions: 100mg by mouth in the morning and noon and 200mg at bedtime. Discontinued furosemide [Lasix] 40 mg tablet 40 mg PO DAILY Qty: 90 3RF Eliquis 5 mg tablet 5 mg PO BID Qty: 60 5RF Discharge Orders: Discharge Order- CHF (Routine); Ordered 11/25/23 Ordered By: Charlie Potter Admission Data Admit Date/Time: 11/15/23 18:21 Attending Provider: Charlie Potter Admit Provider: Guru Rey Primary Care Provider: Lin Abraham Other Providers: Guru Rey; Ev Fraser; Eddie Ruvalcaba; Osborne,Home Care Coding Level of Care Code 40137 INP/OBS DISCH >30 MIN Diagnoses Acute on chronic HFrEF (heart failure with reduced ejection fraction) I50.23 Urine retention R33.9 Acute on chronic respiratory failure with hypoxia J96.21 Symptomatic anemia D64.9 Paroxysmal atrial fibrillation I48.0 Chronic obstructive pulmonary disease J44.9 Type 2 diabetes mellitus, with long-term current use of insulin E11.9; Z79.4 Essential hypertension I10 Hypertension type: essential hypertension 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
--- NOTE | 2023-11-29 15:21 | Coding Query ---
CODING QUERY To promote full compliance with coding requirements relating to patient care, provider participation is requested in all cases of national accounts recruiter uncertainty. Please assist us with the question(s) below: Clinical Indicators: History and Physical: * Acute on chronic HFrEF (heart failure with reduced ejection fraction) Heart Failure Consult 11/16/23: * (HFpEF) heart failure with preserved ejection fraction * 11/16/23 Echo: LV systolic function is normal. Cardiology Progress Note 11/18/23: * (HFpEF) heart failure with preserved ejection fraction Discharge Summary: * Principal Diagnosis: Acute on chronic diastolic CHF,... * Hospital Course: (1) Acute on chronic HFrEF (heart failure with reduced ejection fraction)/2D echo showed preserved ejection fraction, 55 to 60%, with mild to moderate tricuspid regurgitation. * Discharge Diagnosis: Acute on chronic diastolic CHF... Coding Question(s): Based on your medical judgment, and documentation from medical record, can you further clarify if the congestive heart failure was: * Acute on chronic diastolic (congestive) heart failure (HFpEF) * Acute on chronic systolic (congestive) heart failure (HFrEF) * Acute on chronic combined systolic (congestive) and diastolic (congestive) heart failure * Other: (Please specify) * Unable to determine. Physician's Response(s): Acute on chronic diastolic CHF Thank you Tonia ANDERSON
== END 2023-11-25 11:10 | DRG 291 ==
LOC: ED 15:12 → EDINP 18:21 → SUATTDRO 18:21 → 1E 22:40 → 4W 11-17 19:01